=== PATIENT | male | born 1955 | race Caucasian/White ===

== ENCOUNTER 2019-09-18 17:03 | Emergency (ER) | payer OTHER, SELFPAY ==
[2019-09-18 17:32] VITALS: BP 161/102; PULSE 83; RESP 20; TEMP 36.9; O2SAT 95; BMI 23.6
[2019-09-18] MEDS: HYDROcodone-acetaminophen 5-325 mg Tablet 1 TAB PO (18:50)
[2019-09-18] MEDS: methylPREDNISolone (DEPO) 80 MG/ML INJ 1 mL IM (18:51)
[2019-09-18] MEDS: ketorolac 60 mg/2 mL INJ IM (18:51)
[2019-09-18 19:08] VITALS: BP 122/100; PULSE 71; O2SAT 95
--- NOTE | 2019-09-26 17:52 | ED_ITS ---
HPI - Back Pain/Injury General: Chief Complaint: Back Pain/Injury Stated Complaint: leg pain Time Seen by Provider: 09/18/19 17:44 History of Present Illness: HPI Narrative: Patient complains of ongoing chronic back pain and foot pain. MD elicited complaint: back pain Onset (ago): year(s) Timing: constant and progressively worsening Severity: moderate Associated symptoms: Deny abdominal pain, chills, fever(s), nausea or vomiting Review of Systems Const: Denies: fever, chills or body aches Eyes: Denies: change in vision or blurry vision ENMT: Denies: throat pain or nasal congestion Card: Denies: chest pain or shortness of breath on exertion Resp: Denies: shortness of breath, productive cough or non-productive cough GI: Denies: abdominal pain, nausea or vomiting : Denies: difficulty urinating Musc: Reports: other (Chronic back pain and bilateral foot pain); Denies: extremity pain Skin/Breast: Denies: rash Neuro: Denies: headache Psych: Denies: anxiety or depression Ken/Lymph: Denies: easy bruising PFSH ED PFSH: Statuses (acute, chronic, etc) shown below reflect problem list status as previously entered and may not be historically accurate Social History Smoking and tobacco status: current every day smoker Physical Exam Const: COMMON NORMALS: no apparent distress, average body habitus and oriented x3 HENMT: COMMON NORMALS: normocephalic HEAD & SCALP: normal to inspection and normocephalic FACE & SINUS: normal facial exam Eye: COMMON NORMALS: conjunctivae normal GENERAL EYE: normal appearance of both eyes CONJUNCTIVA: Yes conjunctivae normal Neck/C-Spine: COMMON NORMALS: no JVD Chest: COMMONS NORMALS: inspection of chest normal Resp: COMMON NORMALS: normal respiratory effort and clear to auscultation bilaterally AUSCULTATION: clear to auscultation bilaterally Cardio: COMMON NORMALS: no JVD, regular rate and regular rhythm RATE: regular rate RHYTHM: regular rhythm GI: COMMON NORMALS: normal to inspection, nondistended, normoactive bowel sounds Back/Pelvis: PELVIS: Yes other (Feet appear normal. Straight leg lift bilaterally at 30 to 45 degrees pain with left.) COCCYX: other (Feet appear normal. Straight leg lift bilaterally at 30 to 45 degrees pain with left.) Extremity: COMMON NORMALS: normal to inspection and full ROM Neuro: COMMON NORMALS: oriented x3 Course Vital Signs: Vital signs: Vital Signs Temperature 98.5 F 09/18/19 17:32 Pulse Rate 71 09/18/19 19:08 Respiratory Rate 20 H 09/18/19 17:32 Blood Pressure 122/100 09/18/19 19:08 Pulse Oximetry 95 09/18/19 19:08 Discharge Plan Discharge Patient Disposition: Home, Self-Care Clinical Impression: Lumbar radiculopathy, PAD (peripheral artery disease) Condition: Stable Prescriptions: New hydrocodone-acetaminophen 5-325 mg tablet 1 tab PO Q6H PRN (Reason: pain) Qty: 14 RF: 0 prednisone 10 mg tablet 10 mg PO DAILY Qty: 20 RF: 0 Discharge Orders: Discharge Order (Routine); Ordered 09/18/19 Ordered By: Solis Gong Referrals: Elisabeth Murray, DARLINE [Family Provider] - Patient Instructions: Peripheral Artery Disease (ED), Chronic Back Pain (ED) Activity Restrictions/Additional Instructions: Follow-up with medical provider as directed. Take medications as prescribed. Return to the ER are your medical provider if condition worsens. Read and understand discharge instructions. [facility] Patient needs vascular ultrasound down right lower extremity as an outpatient. Stop smoking. [facility] about [facility]. Discharge Date/Time: 09/18/19 19:16 Coding Level of Care Code ED Circuit Court Judge for Malu Galvin
== END 2019-09-18 19:16 | disposition home or self-care (01) ==
PROVIDERS: Emergency Provider Emergency Medicine; Family Provider Nurse Practitioner Family
DX: M54.16 Radiculopathy, lumbar region (principal); I73.9 Peripheral vascular disease, unspecified; F17.210 Nicotine dependence, cigarettes, uncomplicated
CPT/HCPCS: 96372; 99281; J1040; J1885

== ENCOUNTER 2019-11-04 09:53 | Emergency (ER) | payer MEDICARE, OTHER, SELFPAY ==
[2019-11-04 09:59] VITALS: BP 149/99; PULSE 83; RESP 18; TEMP 36.9; O2SAT 95; BMI 22.8
--- NOTE | 2019-11-04 10:57 | PC.NURSE ---
Patient reports that he has had real bad back pain. Patient states that he was suppose to see the pain clinic today.
--- NOTE | 2019-11-04 11:01 | ED_ITS ---
HPI - Back Pain/Injury General: Chief Complaint: Back Pain/Injury Stated Complaint: LOW BACK PAIN Time Seen by Provider: 11/04/19 10:58 Source: patient Mode of arrival: ambulatory Limitations: no limitations History of Present Illness: HPI Narrative: Patient presents with exacerbation of chronic back pain with radiation pain down the right leg. Patient states also numbness in his feet. Patient reports he has been having worsening symptoms over the last 14 months. Patient appears well. Patient appears in moderate pain. Patient was brought in by EMS due to his pain, patient was to be seen at pain clinic today at 10:00 but could not make the appointment due to this pain. Review of Systems General: Reports: 10 or more systems reviewed and unremarkable except in HPI and below Musc: Reports: back pain PFSH ED PFSH: Social History Smoking and tobacco status: current every day smoker Physical Exam Const: COMMON NORMALS: no apparent distress and oriented x3 GENERAL APPEARANCE: cooperative HENMT: COMMON NORMALS: normocephalic, external ears normal, EAC's normal, TM's normal bilaterally and external nose normal HEAD & SCALP: normal to inspection and normocephalic FACE & SINUS: normal facial exam NOSE: external nose normal GENERAL EAR: hearing not grossly impaired EXTERNAL EAR: Yes external ears normal EXTERNAL AUDITORY CANAL: EAC's normal TYMPANIC MEMBRANE: TM's normal bilaterally MOUTH: oral and palatal mucosa normal THROAT: posterior oropharynx normal Eye: COMMON NORMALS: PERRL and EOMs intact bilaterally PUPIL: Yes PERRL Neck/C-Spine: COMMON NORMALS: full ROM and no lymphadenopathy Lymph: LYMPHATIC: no lymphedema noted Chest: COMMONS NORMALS: inspection of chest normal and palpation of chest normal Resp: COMMON NORMALS: normal respiratory effort and clear to auscultation bilaterally AUSCULTATION: clear to auscultation bilaterally Cardio: COMMON NORMALS: regular rate and regular rhythm RATE: regular rate RHYTHM: regular rhythm GI: COMMON NORMALS: normal to inspection, nondistended, normoactive bowel sounds and non-tender : COMMON NORMALS: Yes no CVA tenderness BLADDER/KIDNEY EXAM: Yes no CVA tenderness Back/Pelvis: COMMON NORMALS: no CVA tenderness LUMBAR SPINE/LOWER BACK: Yes paraspinal muscle tenderness Lumbar paraspinal muscle tenderness: right Extremity: COMMON NORMALS: normal to inspection GENERAL: No edema Neuro: COMMON NORMALS: oriented x3, moves all extremities and no focal motor deficits Psych: COMMON NORMALS: mental status grossly normal and cooperative Skin: COMMON NORMALS: no rashes or lesions noted GENERAL SKIN EXAM: no rashes or lesions noted Course Vital Signs: Vital signs: Vital Signs Temperature 98.5 F 11/04/19 09:59 Pulse Rate 75 11/04/19 11:13 Respiratory Rate 18 11/04/19 11:13 Blood Pressure 144/93 11/04/19 11:13 Pulse Oximetry 96 11/04/19 11:13 MDM - Back Pain/Injury MDM Narrative: Medical decision making narrative: Patient comes in with ex acerbation of his low back pain. Patient was scheduled to see pain clinic today but could not tolerate the pain and able to go see them. Exam notes some tenderness in the paraspinous muscles on the right side of his low back. No point tenderness of the spine. Patient denies any bowel or bladder incontinence. Vital signs are normal. Differential diagnosis includes facet arthropathy, intervertebral disc disease, low back strain, lumbar radiculopathy. Patient was medicated with Toradol and orphenadrine. Patient was encouraged to stay as active as he could and to try to follow-up with pain clinic for further medication and treatment. Patient reports understanding and agreed to plan. Discharge Plan Discharge Patient Disposition: Home, Self-Care Clinical Impression: Right lumbar radiculitis Condition: Stable Prescriptions: No Action omeprazole 40 mg Capsule,Delayed Release(Dr/Ec) 40 mg PO DAILY RF: 0 simvastatin 40 mg/5 mL (8 mg/mL) Suspension 40 mg PO DAILY RF: 0 clopidogrel 75 mg Tablet 75 mg PO DAILY RF: 0 metoprolol tartrate 25 mg Tablet 25 mg PO DAILY RF: 0 Vitamin D3 25 mcg (1,000 unit) Capsule 1,000 unit PO DAILY RF: 0 Aspirin Low Dose 81 mg Tablet,Delayed Release (Dr/Ec) 81 mg PO DAILY RF: 0 Discharge Orders: Discharge Order (Routine); Ordered 11/04/19 Ordered By: Ariel Rogel Referrals: Elisabeth Murray DNP [Family Provider] - Discharge Diet: Usual diet Discharge Activity: Increase activity as tolerated Patient Instructions: Chronic Back Pain (ED) Activity Restrictions/Additional Instructions: Activity as tolerated Drink plenty of fluids Follow-up with pain clinic for further treatment Follow-up with primary care as needed Coding Level of Care Code ED Help Desk Manager for Chg Fwd Exam Comprehensive
[2019-11-04] MEDS: ketorolac 30 mg/mL INJ IM (11:06)
[2019-11-04] MEDS: orphenadrine 30 mg/mL Inj 2 mL 60 MG IM (11:07)
[2019-11-04 11:13] VITALS: BP 144/93; PULSE 75; RESP 18; O2SAT 96
== END 2019-11-04 11:13 | disposition home or self-care (01) ==
LOC: ER 11-17 06:46
PROVIDERS: Emergency Provider Nurse Practitioner Family; Family Provider Nurse Practitioner Family
DX: M54.16 Radiculopathy, lumbar region (principal); F17.200 Nicotine dependence, unspecified, uncomplicated
CPT/HCPCS: 96372; 99281; 99283; J1885; J2360

== ENCOUNTER 2019-12-17 06:31 | Outpatient (CLI) | payer OTHER, SELFPAY ==
--- NOTE | 2019-12-17 | USCV_ITS ---
Eber Fernandez Age: 64 Gender: M : 1955 Exam Date: 12/17/2019 08:38 Ordering Phys: Ariel Jane MD Technologist: Exam Location: [facility] [place] Indication: EVAL STENT Risk Factors: Previous Vascular Surgery: RIGHT LEFT BP: 139.0 / BP: 149.0/ 0 0 Waveform Velocity (cm/s) Velocity (cm/s) Waveform Monophasic 21.2 Iliac Prox 77.5 Triphasic Monophasic 14.2 Iliac Mid 64.2 Triphasic Monophasic Iliac Distal Triphasic 12.4 59.2 Monophasic 10.6 LIBRARY CIRCULATION DEPARTMENT CHIEF 44.7 Biphasic Monophasic 13.4 SFA Prox 47.2 Biphasic Monophasic 10.8 SFA Mid 42.2 Biphasic Monophasic 11.9 SFA Dist 39.7 Biphasic Monophasic 10.0 POP 33.1 Biphasic Monophasic 16.3 SHRIMP TRAWLER 38.9 Biphasic N/A DPA 22.3 Monophasic 0.6 ALEIDA 1.0 FINDINGS Moderate to heavy and venous plaques in the right iliac and femoral artery. Normal Doppler flow signals in the dorsalis pedis artery. Moderate scattered diffuse plaques in the left iliac and femoral arteries CONCLUSIONS 1. Abnormal resting ALEIDA and Doppler waveforms on the right side, suggestive of severe peripheral arterial disease, possibly multisegmental. Features of possible occlusion of the dorsalis pedis artery 2. Normal resting ALEIDA on the left side with moderate diffuse plaques in the iliac and femoral arteries. Compared to the study from 10/06/2013, there is worsening of the stenosis on the right side Dr Lyssa Roche MD [facility] (Electronically Signed) Final Date: 17 December 2019 17:17 S
== END 2019-12-17 06:32 | disposition home or self-care (01) ==
PROVIDERS: Family Provider Family Medicine; PCP Family Medicine; Visit Provider Family Medicine
DX: I73.9 Peripheral vascular disease, unspecified (principal)
CPT/HCPCS: 93925

== ENCOUNTER 2020-06-20 15:16 | Emergency (ER) | payer OTHER, MEDICARE, SELFPAY ==
[2020-06-20] VITALS (12 sets, daily range): BP systolic 93–117; BP diastolic 66–86; PULSE 83–88; RESP 18–28; TEMP 37.2–37.3; O2SAT 20–99; BMI 22.8
--- NOTE | 2020-06-20 17:24 | W.ED.COVID ---
HPI - COVID General: Chief Complaint: COVID symptoms Stated Complaint: covid symptoms Time Seen by Provider: 06/20/20 17:24 Triage information: Has fever, cough or shortness of breath. No known COVID + exposure last 14 days History of Present Illness: HPI Narrative: Patient comes in today for complaints of cough and congestion for the last 4 days. Patient states being out of his inhalers and nebulizer at home. Patient has a history of COPD. Patient has no known exposure to COVID. Patient appears in mild distress, with persistent cough. Prior covid testing: no COVID 19 common symptoms: positive cough and non-productive cough Pertinent comorbid conditions: heart disease and COPD/respiratory disease COVID Results: SARS-CoV-2 Antigen (Rapid) Negative (Negative) 06/20/20 17:58 06/20/20 Review of Systems General: Reports: 10 or more systems reviewed and unremarkable except in HPI and below Resp: Reports: non-productive cough [facility] ED PFSH: Medical History (Updated 06/20/20 @ 19:42 by DEVIN Quiroga) ASHD (arteriosclerotic heart disease) Chronic back pain COPD (chronic obstructive pulmonary disease) Dyslipidemia HTN (hypertension) Intervertebral disc disorder with radiculopathy of lumbosacral region Myocardial infarction Peripheral arterial disease Polycythemia Thoracic aortic aneurysm Tobacco abuse Tracheoesophageal fistula Surgical History History of coronary angioplasty History of lumbar discectomy [facility] [place], 2011 S/P insertion of iliac artery stent Social History Smoking and tobacco status: current every day smoker cigarettes Packs smoked per day: 1 Alcohol intake: never Lives independently: Yes Marital status: Single service: Yes branch: [employer] Current occupational status: retired Physical Exam Const: COMMON NORMALS: no acute distress and patient oriented x3 GENERAL APPEARANCE: cooperative HENMT: COMMON NORMALS: normocephalic, TM's normal bilaterally and Normal external nose present HEAD & SCALP: normal to inspection and normocephalic NOSE: Normal external nose present TYMPANIC MEMBRANE: TM's normal bilaterally MOUTH: Normal oral and palatal mucosa present THROAT: posterior oropharynx normal Eye: GENERAL EYE: appearance normal, both eyes and all related structures Neck/C-Spine: COMMON NORMALS: full ROM Chest: COMMONS NORMALS: normal inspection of the chest Resp: EFFORT & INSPECTION: Yes able to speak in complete sentences AUSCULTATION: diminished lung sounds Cardio: COMMON NORMALS: regular rate and regular rhythm RATE: regular rate RHYTHM: regular rhythm GI: COMMON NORMALS: non-tender Back/Pelvis: COMMON NORMALS: thoracic and lumbar spine normal to inspection Extremity: COMMON NORMALS: normal to inspection Neuro: COMMON NORMALS: patient oriented x3 and moves all extremities Psych: COMMON NORMALS: mental status grossly normal and cooperative Skin: COMMON NORMALS: no rashes or lesions noted GENERAL SKIN EXAM: no rashes or lesions noted Course ED course: 1899, patient reports improvement of symptoms. Patient resting well. No acute distress noted. Waiting on CTA of chest due to short of breath, elevated d dimer, and Vital Signs: Vital signs: Vital Signs Temperature 99.1 F 06/20/20 15:56 Pulse Rate 88 06/20/20 19:41 Respiratory Rate 20 H 06/20/20 19:41 Blood Pressure 116/78 06/20/20 19:41 Pulse Oximetry 93 06/20/20 19:41 MDM - COVID MDM Narrative Medical decision making narrative: Patient was sent here from the urgent care and [place] for concerns of possible COVID exposure. Patient was short of breath with cough and congestion. Patient decreased lung sounds on evaluation. Differential diagnosis includes pneumonia exacerbation of COPD or CHF. CTA noticed possible signs of pneumonia but no pulmonary embolism was noted. Blood count was 11,000. Basic metabolic panel was normal. D-dimer was elevated. COVID test was negative. Patient was treated for COPD exacerbation ER with good results after steroid and nebulizer treatments. Lab Data Result diagrams: 06/20/20 17:20 06/20/20 17:20 Labs: Lab Results 06/20/20 06/20/20 06/20/20 Range/Units 17:20 17:20 17:20 WBC 11.3 H (4.0-10.0) 10^3/uL RBC 5.39 H (4.1-5.3) 10^6/uL Hgb 16.1 (11.7-16.6) g/dL Hct 50.0 (42.0-52.0) % MCV 92.8 (80-94) fL MCH 29.9 (28.0-34.0) pg MCHC 32.2 (30.0-36.0) g/dL RDW 13.2 (12.1-15.1) % Plt Count 372 (130-400) 10^3/cmm MPV 9.2 (7.4-10.4) fL Neut % (Auto) 66.1 % Lymph % (Auto) 20.3 % [place] % (Auto) 10.2 % Eos % (Auto) 1.8 % Baso % (Auto) 1.0 % Neut # (Auto) 7.47 (1.8-7.7) 10^3/uL Lymph # (Auto) 2.3 (0.8-4.8) 10^3/uL [place] # (Auto) 1.2 H (0.2-0.9) 10^3/uL Eos # (Auto) 0.2 (0.0-0.8) 10^3/uL Baso # (Auto) 0.1 (0.0-0.1) 10^3/uL Nucleated RBC % (auto) 0 % Nucleated RBCs # 0.0 /100WBC D-Dimer 1.80 H (0-0.59) ug/mIFEU Sodium 137 (136-145) mmol/L Potassium 4.5 (3.5-5.1) mmol/L Chloride 98 (98-107) mmol/L Carbon Dioxide 26 (22-29) mmol/L Anion Gap 17.5 (5-19) BUN 17 (8-23) mg/dL Creatinine 0.8 (0.7-1.2) mg/dL GFR Calculation 96.7 (90-130) mL/min Glucose 86 (65-115) mg/dL Calculated Osmolality 285 (285-295) mOsm/kg Calcium 9.5 (8.5-10.5) mg/dL Ferritin 297 (30-400) ng/mL Total Bilirubin 0.5 (0.15-1.2) mg/dL AST 29 (0-40) U/L ALT 22 (0-41) U/L Alkaline Phosphatase 86 (40-130) IU/L Total Protein 7.9 (6.6-8.7) g/dL Albumin 3.7 (3.5-5.2) g/dL Globulin 4.2 (1.3-4.6) g/dL SARS-CoV-2 Ag (Rapid) (Negative) 06/20/20 Range/Units 17:58 WBC (4.0-10.0) 10^3/uL RBC (4.1-5.3) 10^6/uL Hgb (11.7-16.6) g/dL Hct (42.0-52.0) % MCV (80-94) fL MCH (28.0-34.0) pg MCHC (30.0-36.0) g/dL RDW (12.1-15.1) % Plt Count (130-400) 10^3/cmm MPV (7.4-10.4) fL Neut % (Auto) % Lymph % (Auto) % [place] % (Auto) % Eos % (Auto) % Baso % (Auto) % Neut # (Auto) (1.8-7.7) 10^3/uL Lymph # (Auto) (0.8-4.8) 10^3/uL [place] # (Auto) (0.2-0.9) 10^3/uL Eos # (Auto) (0.0-0.8) 10^3/uL Baso # (Auto) (0.0-0.1) 10^3/uL Nucleated RBC % (auto) % Nucleated RBCs # /100WBC D-Dimer (0-0.59) ug/mIFEU Sodium (136-145) mmol/L Potassium (3.5-5.1) mmol/L Chloride (98-107) mmol/L Carbon Dioxide (22-29) mmol/L Anion Gap (5-19) BUN (8-23) mg/dL Creatinine (0.7-1.2) mg/dL GFR Calculation (90-130) mL/min Glucose (65-115) mg/dL Calculated Osmolality (285-295) mOsm/kg Calcium (8.5-10.5) mg/dL Ferritin (30-400) ng/mL Total Bilirubin (0.15-1.2) mg/dL AST (0-40) U/L ALT (0-41) U/L Alkaline Phosphatase (40-130) IU/L Total Protein (6.6-8.7) g/dL Albumin (3.5-5.2) g/dL Globulin (1.3-4.6) g/dL SARS-CoV-2 Ag (Rapid) Negative (Negative) COVID Results: SARS-CoV-2 Antigen (Rapid) Negative (Negative) 06/20/20 17:58 06/20/20 EKG Data EKG 1: Attestation: I personally reviewed and interpreted this EKG as follows: (normal sinus rhythm, 84 bpm regular, no ectopy or ST elevation. wjw) Discharge Plan Discharge Patient Disposition: Home Clinical Impression: Close exposure to severe acute respiratory syndrome coronavirus 2 (SARS-CoV-2), Acute exacerbation of chronic obstructive pulmonary disease Condition: Stable Prescriptions: New prednisone 20 mg tablet 20 mg PO BID 3 Days Qty: 6 RF: 0 doxycycline hyclate 100 mg capsule 100 mg PO BID 7 Days Qty: 14 RF: 0 No Action simvastatin 40 mg tablet 40 mg PO DAILY RF: 0 albuterol sulfate 90 mcg/actuation HFA aerosol inhaler 2 puff INHALATION Q6H PRNRF: 0 omeprazole 40 mg Capsule,Delayed Release(Dr/Ec) 40 mg PO DAILY RF: 0 clopidogrel 75 mg Tablet 75 mg PO DAILY RF: 0 metoprolol tartrate 25 mg Tablet 25 mg PO DAILY RF: 0 Vitamin D3 25 mcg (1,000 unit) Capsule 1,000 unit PO DAILY RF: 0 Aspirin Low Dose 81 mg Tablet,Delayed Release (Dr/Ec) 81 mg PO DAILY RF: 0 Referrals: Ariel Jane [Primary Care Provider] - Discharge Diet: Usual diet Discharge Activity: Increase activity as tolerated Patient Instructions: Chronic Obstructive Pulmonary Disease (ED) Activity Restrictions/Additional Instructions: Home and rest. Drink plenty of fluids. Continue use of medications as directed. Follow-up with primary care for further treatment, and review of CT scan results. Return to the emergency department for worsening symptoms or new concerns. Coding Level of Care Code ED Senior Marketing Analyst for Malu Fwsara Exam Comprehensive
[2020-06-20 17:42] LABS: Basophils # 0.1 10^3/uL (0.0-0.1); Eosinophils # 0.2 10^3/uL (0.0-0.8); Eosinophils % 1.8 %; Hemoglobin 16.1 g/dL (11.7-16.6); Lymphocytes # 2.3 10^3/uL (0.8-4.8); Lymphocytes % 20.3 %; Mean Corpuscular HGB Conc 32.2 g/dL (30.0-36.0); Mean Corpuscular Hemoglobin 29.9 pg (28.0-34.0); Mean Corpuscular Volume 92.8 fL (80-94); Mean Platelet Volume 9.2 fL (7.4-10.4); Monocytes # 1.2 10^3/uL (0.2-0.9); Monocytes % 10.2 %; Neutrophils # 7.47 10^3/uL (1.8-7.7); Neutrophils % 66.1 %; Nucleated Red Blood Cells % 0 %; Platelet Count 372 10^3/cmm (130-400); Red Blood Count 5.39 10^6/uL (4.1-5.3); Red Cell Distribution Width 13.2 % (12.1-15.1); White Blood Count 11.3 10^3/uL (4.0-10.0)
[2020-06-20] MEDS: albuterol 8 gm MDI 4 PUFF INHALATION (18:05)
--- NOTE | 2020-06-20 18:11 | ECG_ITS ---
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 Measurements Intervals [place] Rate: 84 P: 66 MN: 158 QRS: -8 QRSD: 79 T: 45 QT: 368 QTc: 437 Interpretive Statements SINUS RHYTHM Compared to ECG 10/03/2018 17:05:36 No significant changes Electronically Signed On 06-21-2020 20:01:35 CDT by Lucy Whelan M.D. [email or web address]
[2020-06-20 18:14] LABS: Alanine Aminotransferase 22 U/L (0-41); Albumin Level 3.7 g/dL (3.5-5.2); Alkaline Phosphatase 86 IU/L (40-130); Anion Gap 17.5 (5-19); Aspartate Amino Transferase 29 U/L (0-40); Blood Urea Nitrogen 17 mg/dL (8-23); Calcium 9.5 mg/dL (8.5-10.5); Carbon Dioxide 26 mmol/L (22-29); Chloride 98 mmol/L (98-107); Ferritin 297 ng/mL (30-400); Globulin 4.2 g/dL (1.3-4.6); Glomerular Filtration Rate 96.7 mL/min (90-130); Glucose 86 mg/dL (65-115); Osmolality Calculated 285 mOsm/kg (285-295); Potassium 4.5 mmol/L (3.5-5.1); Sodium 137 mmol/L (136-145); Total Bilirubin 0.5 mg/dL (0.15-1.2); Total Protein 7.9 g/dL (6.6-8.7)
--- NOTE | 2020-06-20 18:14 | CTR_ITS ---
PROCEDURE INFORMATION: Exam: CT Angiography Chest With Contrast Exam date and time: 06/20/2020 7:00 PM Age: 64 years old Clinical indication: Cough and shortness of breath; Patient HX: Cough, SOB, and elevated d-dimer; Additional info: Elevated d-dimer, short of breath TECHNIQUE: Imaging protocol: Computed tomographic angiography of the chest with intravenous contrast. 3D rendering (Not supervised by radiologist): MIP and/or 3D reconstructed images were created by the technologist. Radiation optimization: All CT scans at this facility use at least one of these dose optimization techniques: automated exposure control; mA and/or kV adjustment per patient size (includes targeted exams where dose is matched to clinical indication); or iterative reconstruction. Contrast material: OMNI 350; Contrast volume: 71 ml; Contrast route: INTRAVENOUS (IV); COMPARISON: CTA Chest-Pulmonary Emb [id number] 10/03/2018 6:28 PM RADIATION DOSE METRICS: Total DLP (mGy-cm): 529.48 FINDINGS: Pulmonary arteries: Normal. No pulmonary emboli. Aorta: Unremarkable. No aortic aneurysm. No aortic dissection. Lungs: Patchy left lung ground-glass airspace opacities largely in the lower lobe with somewhat of a tree-in-bud type particular nodular density with some similar findings in the right lung may reflect an atypical mycobacterial infection. Centrilobular emphysematous changes. Pleural space: Lingular 4.8 cm mass contacting the pericardium and lateral pleural. Heart: Unremarkable. No cardiomegaly. No pericardial effusion. Lymph nodes: Unremarkable. No enlarged lymph nodes. Stomach and bowel: Stent seen in stomach. Bones/joints: Unremarkable. No acute fracture. Soft tissues: Unremarkable. CT/CT angio chest PE protcl [id number] IMPRESSION: 1. Negative for pulmonary embolus 2. Lingular 4.8 cm mass contacting the pericardium and lateral pleural. Highly suspicious nodule(s). Consider PET/CT, or tissue sampling.(Reference: Ellis) 3. Patchy left lung ground-glass airspace opacities largely in the lower lobe with somewhat of a tree-in-bud type particular nodular density with some similar findings in the right lung may reflect an atypical mycobacterial infection. 4. Stent seen in stomach. 5. Centrilobular emphysematous changes. References: Ellis Dowell et al. Guidelines for Management of Incidental Pulmonary Nodules Detected on CT Images: From the Fleischner Society 2017. Radiology. 2017;284(1):228-243. Radiation Dose CTDIVOL = (mGy): DLP = 529.48 (mGy-cm)
[2020-06-20 18:22] LABS: SARS Covid-2 Antigen Negative (Negative)
[2020-06-20] MEDS: sodium chloride 0.9% 500 ML 999 ML IV (18:51)
[2020-06-20] MEDS: iohexol 350 mg/mL 100 mL Btl IV (19:15)
[2020-06-20] MEDS: ipratropium-albuterol 3 mL Neb INHALATION (19:25)
--- NOTE | 2020-06-20 21:00 | PC.NURSE ---
Pt not given PO meds here before discharge. Pt sent with prescription home. Provider notified.
== END 2020-06-20 21:03 | disposition home or self-care (01) ==
PROVIDERS: Nurse Practitioner Family; Emergency Provider Nurse Practitioner Family; PCP Family Medicine
DX: Z20.828 Contact with and (suspected) exposure to other viral communicable diseases (principal); J44.1 Chronic obstructive pulmonary disease with (acute) exacerbation; Z79.02 Long term (current) use of antithrombotics/antiplatelets; Z79.82 Long term (current) use of aspirin; E78.5 Hyperlipidemia, unspecified; I10 Essential (primary) hypertension; I25.2 Old myocardial infarction; Z98.61 Coronary angioplasty status; F17.210 Nicotine dependence, cigarettes, uncomplicated
CPT/HCPCS: 12345; 36415; 71275; 80053; 82728; 85025; 85378; 87426; 93005; 94640; 96374; 96375; 99284; J2930; J3535; J7040; Q9967

== ENCOUNTER → 2020-07-19 15:58 | Outpatient (BNVA) | payer OTHER, SELFPAY | PROVIDERS: PCP Family Medicine; Visit Provider Emergency Medicine | DX: Z11.59 Encounter for screening for other viral diseases (principal); R06.02 Shortness of breath | CPT/HCPCS: 87635 ==

== ENCOUNTER 2020-07-22 08:06 | Outpatient (CLI) | payer OTHER, MEDICARE, SELFPAY ==
[2020-07-22 08:52] VITALS: BP 106/72
--- NOTE | 2020-07-22 14:13 | PFTS_ITS ---
Date of Study:07/22/20 Date of Dictation: MECHANICS: Forced vital capacity (FVC) is normal. Forced expiratory volume in one second (FEV1) is normal. FEV1/FVC is reduced. FLOW VOLUME LOOP: Reduced flow at all lung volumes with scooping. LUNG VOLUMES: Total lung capacity (TLC) is normal. Residual volume (RV) is increased. DIFFUSING CAPACITY FOR CARBON MONOXIDE: Mildly reduced. INTERPRETATION: The pulmonary function tests are consistent with mild obstruction. There is no significant postbronchodilator response. Lung volumes are consistent with air trapping. Gas exchange (DLCO) is mildly reduced. MTDD
== END 2020-07-22 08:07 | disposition home or self-care (01) ==
PROVIDERS: PCP Family Medicine; Visit Provider Internal Medicine Pulmonary Disease
DX: Z98.61 Coronary angioplasty status (principal); Z95.828 Presence of other vascular implants and grafts; I71.2 Thoracic aortic aneurysm, without rupture; Z72.0 Tobacco use; J44.9 Chronic obstructive pulmonary disease, unspecified; I73.9 Peripheral vascular disease, unspecified
CPT/HCPCS: 94060; 94618; 94726; 94729; J7611

== ENCOUNTER 2020-07-23 06:35 | Day surgery (SDC) | payer OTHER, SELFPAY ==
[2020-07-22 17:17] VITALS: BMI 22.1
[2020-07-23] VITALS (9 sets, daily range): BP systolic 86–102; BP diastolic 55–72; PULSE 68–83; RESP 16–24; TEMP 36.2–36.7; O2SAT 95–99
--- NOTE | 2020-07-23 | CT_ITS ---
Guided Bronchoscopy Planning CT images; total exam DLP: 594.16 mGy-cm MTDD
--- NOTE | 2020-07-23 06:51 | W.PM.OPSFHP ---
Same Day Surgery H&P Indication for Procedure/HPI DATE OF PROCEDURE: July 23, 2020 CHIEF COMPLAINT/INDICATIONFOR SURGICAL PROCEDURE: This is a 64-year-old gentleman who was referred to me by Dr. Orozco for evaluation and management of suspected lung cancer. The patient was found to have a left lingular mass that was positive on PET scan. PREOP DIAGNOSIS: Lung cancer PLANNED PROCEDRUE: Bronchoscopy inspection of the airway, possible endobronchial biopsies, bronchoalveolar lavage, navigational bronchoscopy guided transbronchial needle aspiration of lingular mass, transbronchial biopsies, Cytobrush, endobronchial sound guided transbronchial needle aspiration of lymph nodes. Operation Date: 07/23/20 08:10 Proposed Procedures p Bronchoscopy [id number] R91.8(Not Applicable) - Dany Dias MD s Ebus(Not Applicable) - Dany Dias MD Medications/Allergies* Home Medications Medication Instructions Recorded Confirmed Type aspirin [Aspirin Low Dose] 81 mg PO DAILY 11/04/19 07/22/20 History cholecalciferol (vitamin D3) 1,000 unit PO DAILY 11/04/19 07/22/20 History [Vitamin D3] metoprolol tartrate 25 mg PO DAILY 11/04/19 07/22/20 History omeprazole 40 mg PO DAILY 11/04/19 07/22/20 History albuterol sulfate 90 mcg/actuation 2 puff INHALATION Q6H PRN 12/24/19 07/22/20 History aerosol inhaler simvastatin 40 mg tablet 40 mg PO DAILY 12/24/19 07/22/20 History trazodone 100 mg tablet 50 mg PO DAILY tab 07/19/20 07/22/20 History clopidogrel [Plavix] 75 mg PO DAILY 07/22/20 07/22/20 History Allergies/Adverse Reactions Allergy/AdvReac Type Severity Reaction Status Date / Time No Known Allergies Allergy Verified 07/19/20 13:52 Pertinent History/Comorbid Conditions* Medical History (Updated 07/19/20 @ 17:31 by Hussain Orozco MD) ASHD (arteriosclerotic heart disease) Chronic back pain COPD (chronic obstructive pulmonary disease) Dyslipidemia HTN (hypertension) Intervertebral disc disorder with radiculopathy of lumbosacral region Myocardial infarction Peripheral arterial disease Polycythemia Thoracic aortic aneurysm Tobacco abuse Tracheoesophageal fistula Surgical History (Updated 12/24/19 @ 09:39 by Aaron Montague MD) History of coronary angioplasty History of lumbar discectomy [facility], 2012 S/P insertion of iliac artery stent Social History Smoking and tobacco status: current every day smoker cigarettes Packs smoked per day: 1 [ Other cigarette details: [id number] ] Quit status (tobacco): considering quitting Second hand smoke exposure: No Smoking risk assessment/counseling performed?: Yes Alcohol intake: never Lives independently: Yes Household members: none Marital status: Single service: Yes branch: [employer] Current occupational status: retired History of recent travel: No Current gender identity: Male Pertinent Exam Findings alert, oriented x 3, clear to auscultation bilaterally and regular rate & rhythm Recommendations Surgery/Procedure today Coding Level of Care Code Acute 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
[2020-07-23] MEDS: sodium chloride 0.9% 1,000 ML 30 ML IV (07:02)
--- NOTE | 2020-07-23 09:54 | ANES.PREANE2 ---
Pre-Anesthetic Assessment Pre-Anesthetic Assessment: Height/Weight: Height 1.73 m Weight 66.224 kg Temp Pulse Resp BP Pulse Ox 97.8 F 80 18 99/60 95 07/23/20 06:58 07/23/20 06:58 07/23/20 06:58 07/23/20 06:58 07/23/20 06:58 Preop Diagnosis: Lung cancer Proposed Procedure: Operation Date: 07/23/20 08:30 Proposed Procedures p Bronchoscopy [id number] R91.8(Not Applicable) - MD maria ines Swanson Ebus(Not Applicable) - MD maria ines Swanson Veran(Not Applicable) - Dany Dias MD Familial anesthetic complications: none Was Beta Sasha taken within 24 hours: Yes Last intake: Intake Last Liquid Date 07/22/20 Last Liquid Time 21:00 Last Solid Date 07/22/20 Last Solid Time 21:00 Last Intake: 21:00 Social: Packs per day: 1/2 ppd Pack years: 52 Exam: Pre-Anes Outpt Exam: alert, oriented x 3, clear to auscultation bilaterally (dim eliel) and regular rate & rhythm Airway: Submandibular: WNL Cervical ROM: WNL MP: 1 Dentition: Full Pulmonary: Pulmonary: COPD, TAYLOR and SOB CV/HEM: CV/HEM: HTN and TX Comments: PTCA 4 years ago. No CP since : : None reported Hepatic: Hepatic: None reported GI: GI: GERD Comments: esophageal fistula 2016 with esophageal stent Metabolic: Metabolic: None reported Musc/skel: Musc/skel: Lower Back Pain and OA/DJD Neuropsych: Neuropsych: None reported Anesthetic Plan: ASA status: 3 Anesthesia: Anesthesia Evaluation and General Risk of > 500 ml blood loss (7ml/kg in children): No Meds/Allergies Current Medications: Current Medications Generic Name Dose Route Start Last Admin Trade Name Freq PRN Reason Stop Dose Admin Sodium Chloride 1,000 mls @ 30 ml s/hr 07/23/20 07:00 07/23/20 07:02 Sodium Chloride 0.9% IV 07/24/20 06:59 30 mls/hr .Q24H LAVON Administration PFSH Anesthesia PFSH: Medical History ASHD (arteriosclerotic heart disease) Chronic back pain COPD (chronic obstructive pulmonary disease) Dyslipidemia HTN (hypertension) Intervertebral disc disorder with radiculopathy of lumbosacral region Myocardial infarction Peripheral arterial disease Polycythemia Thoracic aortic aneurysm Tobacco abuse Tracheoesophageal fistula Surgical History History of coronary angioplasty History of lumbar discectomy [facility], 2012 S/P insertion of iliac artery stent Social History Smoking and tobacco status: current every day smoker cigarettes Packs smoked per day: 1 [ Other cigarette details: [id number] ] Quit status (tobacco): considering quitting Second hand smoke exposure: No Smoking risk assessment/counseling performed?: Yes Alcohol intake: never Lives independently: Yes Household members: none Marital status: Single service: Yes branch: [employer] Current occupational status: retired History of recent travel: No Current gender identity: Male Data Anesthesia Cardiac Studies: No Data to Display
[2020-07-23] MEDS: lidocaine 1% INJ 20 mL (10:25)
--- NOTE | 2020-07-23 11:07 | PTH.EBUS ---
Endobronchial Ultrasound Specimen(s): Lung, left, lingula. Gross: The specimen is received fresh in a slide, camilo-white necrotic tissue measuring 0.2 cm in greatest dimension. 2 Diff-Quik cytology slides are prepared for rapid onsite evaluation. Preliminary Impression: Lung, left, lingula, fine-needle aspiration biopsy: ?Reactive bronchial epithelial cells with acute and chronic inflammation in a background of necrosis. ?No overt malignancy identified. ?Tissue was procured for permanent sections. - Specimen Information Pathologist: Terry Hopkins Date: 07/23/20 Specimen reported at what time: 11:05 - Clinician Specimen collection time: 11:00 Clinician reported to: Dany Dias
--- NOTE | 2020-07-23 11:57 | P.OP_ITS ---
Operative Report Date of procedure: July 23, 2020 Pre-op Diagnosis: Lung cancer Post-op diagnosis: same Brief History: This is a 64-year-old gentleman with lingular lung mass coming in for evaluation for suspected lung cancer. Procedure: Name of the procedure: Bronchoscopy with inspection of the airway, bronchoalveolar lavage, navigational bronchoscopy guided transbronchial biopsies of the lingular mass, fine-needle aspiration, endobronchial ultrasound-guided transbronchial needle aspiration of lymph nodes and control of bleeding. Indication: Suspected lung cancer Anesthesia: General anesthesia. Local anesthesia: The adeola in the right and left mainstem bronchi were anesthetized with 1% lidocaine, 3 mL. Description of the procedure: The procedure was explained to the patient and the consent was obtained. The patient was brought to the OR. The patient underwent endotracheal intubation for general anesthesia. Following induction of general anesthesia, the bronchoscope was advanced through the ET tube. The lower trachea appeared to be normal. The adeola was sharp. The adeola, the right and left mainstem bronchi are anesthetized with 1% lidocaine. In a systematic manner bilateral bronchial tree was then examined. The bronchoscope was advanced into the left mainstem bronchus. There was no erythema,mucus or areas of cobblestoning. The left upper lobe, lingula and left lower lobe bronchi were examined up to the third subsegmental level and no abnormalities were identified. There is no endobronchial lesion, active bleeding or mucous plug. The bronchoscope was then introduced into the right mainstem bronchus. The right upper lobe, right middle lobe and right lower lobe bronchi were examined up to the third subsegmental level and no abnormalities were identified. There was airway erythema throughout the lung. Using navigational bronchoscopy technique multiple transbronchial biopsies and fine-needle aspirations were obtained from the lingular lung mass. Bronchoalveolar lavage was performed from the medial segment of the right middle lobe. 60 mL of saline was instilled, fluid return was 20 mL. The fluid was bloody. The endobronchial ultrasound was introduced through the ET tube. Lymphadenopathy involving the mediastinal hilar lymph nodes are noted. Fine- needle aspiration was performed from the 4L and 10 L lymph node stations Samples: 1. The transbronchial biopsies are sent for histopathology. 1 sample was sent for Gram stain and culture, fungal stain and culture, AFB stain and culture. 2. The fine-needle aspiration was sent for histopathology. 3. The bronchoalveolar lavage was sent for Gram stain culture, fungal stain culture, AFB stain and culture and cytology. 4. The transbronchial needle aspiration of the aforementioned lymph node groups were sent for cytology. Complications: There was no immediate complications.
--- NOTE | 2020-07-23 12:09 | SUR.PHASEI ---
1208 PATIENT TO PACU FROM OR. DRY COUGH NOTED. PATIENT DENIES PAIN. SPO2 98% ON SIMPLE MASK AT 8L.
--- NOTE | 2020-07-23 12:21 | SUR.PHASEI ---
1218 PATIENT TO OPS. SLIGHT PAIN IN THROAT, DRY COUGH NOTED.
--- NOTE | 2020-07-23 13:03 | PC.NURSE ---
PT RECEIVING BREATHING TREATMENT FOR CONT. COUGH
[2020-07-23] MEDS: lidocaine 4% PF 5 mL INJ INHALATION (13:07)
--- NOTE | 2020-07-23 14:43 | ANE.PACU2 ---
Inpatient post-anesthesia follow up: Airway intact: Yes Vital signs: Temperature 97.2 F Pulse Rate 83 Respiratory Rate 22 Blood Pressure 86/55 Pulse Oximetry 98 Oxygen Delivery Me thod Room Air Oxygen Flow Rate 8 Fraction of Inspir ed Oxygen Hydration adequate: Yes Nausea and vomiting: No Pain level: 2 Mental status: Baseline
== END 2020-07-23 13:23 | disposition home or self-care (01) ==
PROVIDERS: PCP Family Medicine; Visit Provider Internal Medicine Critical Care Medicine
PROC: 0BJ08ZZ Inspection of Tracheobronchial Tree, Via Natural or Artificial Opening Endoscopic (ICD-10-PCS; CPT 31622; principal; 2020-07-23 08:30)
PROC: BB4BZZZ Ultrasonography of Pleura (ICD-10-PCS; 2020-07-23 08:30)
PROC: 0BJ08ZZ Inspection of Tracheobronchial Tree, Via Natural or Artificial Opening Endoscopic (ICD-10-PCS; CPT 31622; 2020-07-23 08:30)
DX: R91.8 Other nonspecific abnormal finding of lung field (principal); Z79.82 Long term (current) use of aspirin; Z79.02 Long term (current) use of antithrombotics/antiplatelets; I25.10 Atherosclerotic heart disease of native coronary artery without angina pectoris; J44.9 Chronic obstructive pulmonary disease, unspecified; I10 Essential (primary) hypertension; E78.5 Hyperlipidemia, unspecified; I25.2 Old myocardial infarction; I73.9 Peripheral vascular disease, unspecified; D75.1 Secondary polycythemia; I71.2 Thoracic aortic aneurysm, without rupture; F17.210 Nicotine dependence, cigarettes, uncomplicated; Z98.61 Coronary angioplasty status; Z95.828 Presence of other vascular implants and grafts; K21.9 Gastro-esophageal reflux disease without esophagitis
CPT/HCPCS: 12345; 31625; 31627; 77011; 80500; 87015; 87070; 87077; 87081; 87102; 87116; 87176; 87186; 87205; 87206; 87801; 88305; 94640; J2405; J2704; J2710; J3010; J3490; J7030; J7611

== ENCOUNTER 2020-08-09 12:50 | Emergency (ER) | payer OTHER, SELFPAY ==
[2020-08-09 13:01] VITALS: BP 110/76; PULSE 82; RESP 22; TEMP 36.8; O2SAT 97
--- NOTE | 2020-08-09 13:44 | XRR_ITS ---
PROCEDURE INFORMATION: Exam: XR Chest, 1 View Exam date and time: 08/09/2020 2:58 PM Age: 64 years old Clinical indication: Cough and dyspnea; Prior surgery; Surgery type: Lung biopsy 2 weeks ago; Additional info: Dyspnea/cough TECHNIQUE: Imaging protocol: XR of the chest Views: 1 view. COMPARISON: CT angio chest PE protcl [id number] 06/20/2020 7:12 PM FINDINGS: Lungs: Left lower lung opacity increased since the chest CT of 06/20/2020. Right lung is well aerated. Pleural space: No pleural effusion. No pneumothorax. Heart/Mediastinum: Unremarkable. No cardiomegaly. Vasculature: Left upper abdominal stent partially seen. Bones/joints: No acute findings. XR/XR chest 1V portable [id number] IMPRESSION: Increasing left lower lung opacity consistent with atelectasis, pneumonia, or pulmonary hemorrhage adjacent to the left lung mass versus interval increase in the size of the mass.
--- NOTE | 2020-08-09 16:12 | ECG_ITS ---
[facility] Test Date: 2020-08-09 Pat Name: Eber Fernandez Department: Room: Gender: Male Purse Seining Hand: ALANA : 1955 Requested By: Cheryl Weiss Order Number: [id number] Reading MD: GUERLINE HOUSTON Measurements Intervals [place] Rate: 84 P: 58 OK: 138 QRS: -24 QRSD: 86 T: 15 QT: 350 QTc: 415 Interpretive Statements SINUS RHYTHM BORDERLINE LEFT AXIS DEVIATION [QRS AXIS < -20] POSSIBLE RIGHT VENTRICULAR CONDUCTION DELAY [RSR (QR) IN V1/V2] Compared to ECG 06/20/2020 18:53:52 No significant changes Electronically Signed On 08-09-2020 17:29:05 OILER BANDER by GUERLINE HOUSTON [id number]
--- NOTE | 2020-08-09 16:30 | ECG_ITS ---
[facility] Test Date: 2020-08-09 Pat Name: Eber Fernandez Department: Room: Gender: Male Radiotelegraph Operator: : 1955 Requested By: Cheryl Weiss Order Number: [id number] Reading MD: GUERLINE HOUSTON Measurements Intervals [place] Rate: 78 P: 60 MO: 149 QRS: 9 QRSD: 79 T: 39 QT: 358 QTc: 410 Interpretive Statements SINUS RHYTHM POSSIBLE RIGHT VENTRICULAR CONDUCTION DELAY [RSR (QR) IN V1/V2] Compared to ECG 08/09/2020 13:06:37 No significant changes Electronically Signed On 08-09-2020 17:23:55 ORTHOPEDIC MECHANIC by GUERLINE HOUSTON [id number]
--- NOTE | 2020-08-09 16:36 | ED_ITS ---
HPI - SOB/Dyspnea General: Chief Complaint: Shortness of Breath/Dyspnea Stated Complaint: PNEUMONIA/SYMPTOMS WORSENING Time Seen by Provider: 08/09/20 16:12 History of Present Illness: HPI Narrative: This patient is a 64-year-old male who presents with left-sided chest pain and shortness of breath. He has been having similar symptoms for about a month and has been seen by the protein chemist here. He had a CT which showed a necrotic area in the left lower lobe and they were concerned this was cancer. He had a biopsy done on 23 July. He has not heard the results of that yet. In the past he had a problem with aspiration pneumonia from what sounds like either severe reflux or possibly a tracheoesophageal fistula. This was about 4 years ago when he was treated with an esophageal stent at that time. That stent migrated into his stomach and had to be removed and replaced about a year later. On the CT that he had done recently here now his stent is again in his stomach. On the CT there was no evidence of a tracheoesophageal fistula. He also has multiple other chronic medical problems including aortic aneurysm and is thoracic aorta, coronary artery disease with multiple coronary stents, arterial stents in his peripheral arteries and COPD. His other complaint besides pain and shortness of breath is weight loss. He said he is lost about 25 pounds over the last couple of weeks. He said he just cannot eat. He has been doing Ensure and trying to get some nutrition but continues to lose weight. He has had a little bit of constipation but denies diarrhea. He has had some night sweats and chills but no documented fever. MD elicited complaint: shortness of breath, cough and chest pain Pertinent past history: COPD, pneumonia and aspiration Onset (ago): month(s) Associated symptoms: Reports chest pain and diaphoresis; Deny abdominal pain, fever(s), nausea or vomiting Review of Systems General: Reports: 10 or more systems reviewed and unremarkable except in HPI and below Const: Reports: chills, change in appetite, change in weight, fatigue, malaise and diaphoresis; Denies: fever(s) Eyes: Denies: change in vision ENMT: Denies: odynophagia Card: Reports: chest pain; Denies: swelling of feet/ankles Resp: Reports: dyspnea and productive cough; Denies: non-productive cough GI: Denies: abdominal pain, nausea or vomiting : Denies: flank pain Musc: Denies: neck pain or back pain Skin/Breast: Denies: rash Neuro: Denies: headache(s), numbness in extremities or weakness in extremities Ken/Lymph: Denies: easy bruising or easy bleeding [facility] ED PFSH: Medical History (Updated 08/09/20 @ 19:45 by Cheryl Walls MD) ASHD (arteriosclerotic heart disease) Chronic back pain COPD (chronic obstructive pulmonary disease) Dyslipidemia HTN (hypertension) Intervertebral disc disorder with radiculopathy of lumbosacral region Myocardial infarction Peripheral arterial disease Polycythemia Thoracic aortic aneurysm Tobacco abuse Tracheoesophageal fistula Surgical History History of coronary angioplasty History of lumbar discectomy [facility], 2012 S/P insertion of iliac artery stent Social History Smoking and tobacco status: current every day smoker cigarettes Packs smoked per day: 1 [ Other cigarette details: [id number] ] Quit status (tobacco): considering quitting Second hand smoke exposure: No Smoking risk assessment/counseling performed?: Yes Alcohol intake: never Lives independently: Yes Household members: none Marital status: Single service: Yes branch: [employer] Current occupational status: retired History of recent travel: No Current gender identity: Male Physical Exam Const: COMMON NORMALS: no acute distress, patient oriented x3, no limitations and alert GENERAL APPEARANCE: cooperative and comfortable HENMT: HEAD & SCALP: normal to inspection FACE & SINUS: normal facial exam Eye: GENERAL EYE: appearance normal, both eyes and all related structures Neck/C-Spine: COMMON NORMALS: supple, no meningeal signs and no JVD Chest: COMMONS NORMALS: normal inspection of the chest Resp: COMMON NORMALS: normal respiratory effort and No use of accessory muscles AUSCULTATION: diminished lung sounds on the left in the lower lung genao Cardio: COMMON NORMALS: no JVD, regular rate, regular rhythm and No murmurs present (Cardio) RATE: regular rate RHYTHM: regular rhythm GI: COMMON NORMALS: Normal to inspection, nondistended, normoactive bowel sounds present, Soft to palpation and non-tender INSPECTION: Yes normal to inspection AUSCULTATION: Yes normoactive bowel sounds PALPATION: Yes Soft to palpation Back/Pelvis: COMMON NORMALS: thoracic and lumbar spine normal to inspection Extremity: COMMON NORMALS: normal to inspection Neuro: COMMON NORMALS: patient oriented x3, moves all extremities, no focal motor deficits and no sensory deficits noted SENSORIUM/ORIENTATION: Yes alert MENINGEAL SIGNS: Yes no meningeal signs Psych: COMMON NORMALS: mental status grossly normal, cooperative and normal affect Skin: COMMON NORMALS: no rashes or lesions noted and turgor normal GENERAL SKIN EXAM: no rashes or lesions noted and turgor normal Course ED course: I reviewed the patient's biopsy results. There is no sign of malignancy but there were bacteria identified. These were pansensitive strep strains. I talked to Dr. Torre who knew the patient well and recommended Augmentin for coverage. If he is ill looking more septic looking then he should be admitted but at this point he clinically looks pretty well. If I find otherwise on his blood work will consider admission but for now my plan is to let him go home with Augmentin. I will give him 1 dose of Zosyn while he is here in the department. Vital Signs: Vital signs: Vital Signs Temperature 98.2 F 08/09/20 13:01 Pulse Rate 83 08/09/20 20:27 Respiratory Rate 18 08/09/20 20:28 Blood Pressure 98/70 08/09/20 20:27 Pulse Oximetry 96 08/09/20 20:28 MDM - SOB/Dyspnea Lab Data: Labs: Lab Results 08/09/20 08/09/20 08/09/20 Range/Units 16:55 16:55 16:55 WBC 15.1 H (4.0-10.0) 10^3/ uL RBC 4.82 (4.1-5.3) 10^6/u L Hgb 14.3 (11.7-16.6) g/dL Hct 44.0 (42.0-52.0) % MCV 91.3 (80-94) fL MCH 29.7 (28.0-34.0) pg MCHC 32.5 (30.0-36.0) g/dL RDW 13.8 (12.1-15.1) % Plt Count 288 (130-400) 10^3/c mm MPV 9.4 (7.4-10.4) fL Neut % (Auto) 76.2 % Lymph % (Auto) 9.0 % [place] % (Auto) 12.8 % Eos % (Auto) 0.3 % Baso % (Auto) 0.4 % Neut # (Auto) 11.54 H (1.8-7.7) 10^3/u L Lymph # (Auto) 1.4 (0.8-4.8) 10^3/u L [place] # (Auto) 1.9 H (0.2-0.9) 10^3/u L Eos # (Auto) 0.1 (0.0-0.8) 10^3/u L Baso # (Auto) 0.1 (0.0-0.1) 10^3/u L Nucleated RBC % (a uto) 0 % Nucleated RBCs # 0.0 /100WBC ESR 88 H (0-10) mm/hr Sodium 135 L (136-145) mmol/L Potassium 4.0 (3.5-5.1) mmol/L Chloride 98 (98-107) mmol/L Carbon Dioxide 25 (22-29) mmol/L Anion Gap 16.0 (5-19) BUN 17 (8-23) mg/dL Creatinine 0.7 (0.7-1.2) mg/dL GFR Calculation 112.8 (90-130) mL/min Glucose 106 (65-115) mg/dL Calculated Osmolal ity 282 L (285-295) mOsm/k g Lactic Acid (0.5-2.2) mmol/L Calcium 9.3 (8.5-10.5) mg/dL Total Bilirubin 0.4 (0.15-1.2) mg/dL AST 22 (0-40) U/L ALT 20 (0-41) U/L Alkaline Phosphata se 90 (40-130) IU/L Troponin T Baselin e (0-15) ng/L Troponin T 120 Min three affiliated (0-15) ng/L Delta Troponin T (0-10) ABS# C-Reactive Protein (0.0-4.9) mg/L Total Protein 7.3 (6.6-8.7) g/dL Albumin 3.0 L (3.5-5.2) g/dL Globulin 4.3 (1.3-4.6) g/dL Procalcitonin (0-0.5) ng/mL 08/09/20 08/09/20 08/09/20 Range/Units 16:55 16:55 16:55 WBC (4.0-10.0) 10^3/ uL RBC (4.1-5.3) 10^6/u L Hgb (11.7-16.6) g/dL Hct (42.0-52.0) % MCV (80-94) fL MCH (28.0-34.0) pg MCHC (30.0-36.0) g/dL RDW (12.1-15.1) % Plt Count (130-400) 10^3/c mm MPV (7.4-10.4) fL Neut % (Auto) % Lymph % (Auto) % [place] % (Auto) % Eos % (Auto) % Baso % (Auto) % Neut # (Auto) (1.8-7.7) 10^3/u L Lymph # (Auto) (0.8-4.8) 10^3/u L [place] # (Auto) (0.2-0.9) 10^3/u L Eos # (Auto) (0.0-0.8) 10^3/u L Baso # (Auto) (0.0-0.1) 10^3/u L Nucleated RBC % (a uto) % Nucleated RBCs # /100WBC ESR (0-10) mm/hr Sodium (136-145) mmol/L Potassium (3.5-5.1) mmol/L Chloride (98-107) mmol/L Carbon Dioxide (22-29) mmol/L Anion Gap (5-19) BUN (8-23) mg/dL Creatinine (0.7-1.2) mg/dL GFR Calculation (90-130) mL/min Glucose (65-115) mg/dL Calculated Osmolal ity (285-295) mOsm/k g Lactic Acid 1.0 (0.5-2.2) mmol/L Calcium (8.5-10.5) mg/dL Total Bilirubin (0.15-1.2) mg/dL AST (0-40) U/L ALT (0-41) U/L Alkaline Phosphata se (40-130) IU/L Troponin T Baselin e 11 (0-15) ng/L Troponin T 120 Min three affiliated (0-15) ng/L Delta Troponin T (0-10) ABS# C-Reactive Protein 102.3 H (0.0-4.9) mg/L Total Protein (6.6-8.7) g/dL Albumin (3.5-5.2) g/dL Globulin (1.3-4.6) g/dL Procalcitonin 0.12 (0-0.5) ng/mL 08/09/20 Range/Units 19:15 WBC (4.0-10.0) 10^3/ uL RBC (4.1-5.3) 10^6/u L Hgb (11.7-16.6) g/dL Hct (42.0-52.0) % MCV (80-94) fL MCH (28.0-34.0) pg MCHC (30.0-36.0) g/dL RDW (12.1-15.1) % Plt Count (130-400) 10^3/c mm MPV (7.4-10.4) fL Neut % (Auto) % Lymph % (Auto) % [place] % (Auto) % Eos % (Auto) % Baso % (Auto) % Neut # (Auto) (1.8-7.7) 10^3/u L Lymph # (Auto) (0.8-4.8) 10^3/u L [place] # (Auto) (0.2-0.9) 10^3/u L Eos # (Auto) (0.0-0.8) 10^3/u L Baso # (Auto) (0.0-0.1) 10^3/u L Nucleated RBC % (a uto) % Nucleated RBCs # /100WBC ESR (0-10) mm/hr Sodium (136-145) mmol/L Potassium (3.5-5.1) mmol/L Chloride (98-107) mmol/L Carbon Dioxide (22-29) mmol/L Anion Gap (5-19) BUN (8-23) mg/dL Creatinine (0.7-1.2) mg/dL GFR Calculation (90-130) mL/min Glucose (65-115) mg/dL Calculated Osmolal ity (285-295) mOsm/k g Lactic Acid (0.5-2.2) mmol/L Calcium (8.5-10.5) mg/dL Total Bilirubin (0.15-1.2) mg/dL AST (0-40) U/L ALT (0-41) U/L Alkaline Phosphata se (40-130) IU/L Troponin T Baselin e (0-15) ng/L Troponin T 120 Min three affiliated 11.10 (0-15) ng/L Delta Troponin T 0.10 (0-10) ABS# C-Reactive Protein (0.0-4.9) mg/L Total Protein (6.6-8.7) g/dL Albumin (3.5-5.2) g/dL Globulin (1.3-4.6) g/dL Procalcitonin (0-0.5) ng/mL Discharge Plan Discharge Patient Disposition: Home Clinical Impression: Community acquired pneumonia Qualifiers: Laterality: left Lung location: lower lobe of lung Qualified Code(s): J18.9 - Pneumonia, unspecified organism Condition: Stable Prescriptions: New Augmentin 875-125 mg tablet 1 tab PO BID Qty: 14 RF: 0 hydrocodone-acetaminophen 5-325 mg tablet 1 tab PO Q6H PRN (Reason: pain) Qty: 14 RF: 0 No Action simvastatin 40 mg tablet 40 mg PO QPM RF: 0 albuterol sulfate 90 mcg/actuation HFA aerosol inhaler 2 puff INHALATION QID PRN (Reason: Shortness Of Breath) RF: 0 trazodone 100 mg tablet 50 mg PO BEDTIME RF: 0 Stiolto Respimat 2.5-2.5 mcg/actuation mist 2 puff inhalation DAILY Qty: 4 RF: 3 clopidogrel [Plavix] 75 mg Tablet 75 mg PO DAILY RF: 0 multivitamin Tablet 1 tab PO DAILY RF: 0 Aleve 220 mg Tablet 220 mg PO BID RF: 0 omeprazole 40 mg Capsule,Delayed Release(Dr/Ec) 40 mg PO DAILY RF: 0 metoprolol tartrate 25 mg Tablet 25 mg PO BID RF: 0 cholecalciferol (vitamin D3) [Vitamin D3] 25 mcg (1,000 unit) Capsule 1,000 unit PO DAILY RF: 0 aspirin [Aspirin Low Dose] 81 mg Tablet,Delayed Release (Dr/Ec) 81 mg PO DAILY RF: 0 Discharge Orders: Discharge Order (Routine); Ordered 08/09/20 Ordered By: Cheryl Walls Referrals: Hussain Orozco MD [Physician] - 08/31/20 Ariel Jane [Primary Care Provider] - Discharge Diet: Usual diet Discharge Activity: Resume usual activity Patient Instructions: Pneumonia (ED) Activity Restrictions/Additional Instructions: Take the antibiotics exactly as prescribed. You may take the hydrocodone for pain as needed. Return to the ER if not improving. Follow-up with Dr. Orozco as scheduled on August 31 or sooner if you are not improving. Coding Level of Care Code ED Applications Instructor for Chg Fwd Exam Comprehensive
[2020-08-09 17:16] LABS: Basophils # 0.1 10^3/uL (0.0-0.1); Basophils % 0.4 %; Eosinophils # 0.1 10^3/uL (0.0-0.8); Eosinophils % 0.3 %; Hemoglobin 14.3 g/dL (11.7-16.6); Lymphocytes # 1.4 10^3/uL (0.8-4.8); Mean Corpuscular HGB Conc 32.5 g/dL (30.0-36.0); Mean Corpuscular Hemoglobin 29.7 pg (28.0-34.0); Mean Corpuscular Volume 91.3 fL (80-94); Mean Platelet Volume 9.4 fL (7.4-10.4); Monocytes # 1.9 10^3/uL (0.2-0.9); Monocytes % 12.8 %; Neutrophils # 11.54 10^3/uL (1.8-7.7); Neutrophils % 76.2 %; Nucleated Red Blood Cells % 0 %; Platelet Count 288 10^3/cmm (130-400); Red Blood Count 4.82 10^6/uL (4.1-5.3); Red Cell Distribution Width 13.8 % (12.1-15.1); White Blood Count 15.1 10^3/uL (4.0-10.0)
[2020-08-09 17:58] LABS: Erythrocyte Sedimentation Rate 88 mm/hr (0-10)
[2020-08-09] MEDS: piperacillin-tazobactam 3.375 GM in sodium chloride 0.9% (plus) 50 ML IV (18:00)
[2020-08-09 18:06] LABS: Alanine Aminotransferase 20 U/L (0-41); Alkaline Phosphatase 90 IU/L (40-130); Aspartate Amino Transferase 22 U/L (0-40); Blood Urea Nitrogen 17 mg/dL (8-23); Calcium 9.3 mg/dL (8.5-10.5); Carbon Dioxide 25 mmol/L (22-29); Chloride 98 mmol/L (98-107); Globulin 4.3 g/dL (1.3-4.6); Glomerular Filtration Rate 112.8 mL/min (90-130); Glucose 106 mg/dL (65-115); Osmolality Calculated 282 mOsm/kg (285-295); Sodium 135 mmol/L (136-145); Total Bilirubin 0.4 mg/dL (0.15-1.2); Total Protein 7.3 g/dL (6.6-8.7)
[2020-08-09 18:07] LABS: C Reactive Protein 102.3 mg/L (0.0-4.9); Troponin(5th) Baseline 11 ng/L (0-15)
--- NOTE | 2020-08-09 18:30 | ECG_ITS ---
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 Measurements Intervals [place] Rate: 78 P: 60 MS: 159 QRS: 9 QRSD: 82 T: 44 QT: 364 QTc: 416 Interpretive Statements SINUS RHYTHM POSSIBLE RIGHT VENTRICULAR CONDUCTION DELAY [RSR (QR) IN V1/V2] Compared to ECG 08/09/2020 16:50:10 No significant changes Electronically Signed On 08-10-2020 22:32:14 PARACHUTE MARKER by Lyssa Roche M.D. [email or web address]
[2020-08-09 18:35] LABS: Procalcitonin 0.12 ng/mL (0-0.5)
[2020-08-09 19:28] VITALS: BP 103/74; PULSE 77; RESP 17; O2SAT 93
[2020-08-09 20:27] VITALS: BP 98/70; PULSE 83; O2SAT 96
[2020-08-09 20:28] VITALS: RESP 18; O2SAT 96
[2020-08-09] MEDS: morphine 4 mg/mL SDV 1 mL IVP (20:28)
== END 2020-08-09 20:27 | disposition home or self-care (01) ==
PROVIDERS: Family Medicine; Emergency Provider Emergency Medicine; PCP Family Medicine
DX: J44.0 Chronic obstructive pulmonary disease with (acute) lower respiratory infection (principal); J18.9 Pneumonia, unspecified organism; Z79.82 Long term (current) use of aspirin; Z79.02 Long term (current) use of antithrombotics/antiplatelets; E78.5 Hyperlipidemia, unspecified; I10 Essential (primary) hypertension; I25.2 Old myocardial infarction; Z98.61 Coronary angioplasty status; F17.210 Nicotine dependence, cigarettes, uncomplicated
CPT/HCPCS: 12345; 71045; 80053; 83605; 84145; 84484; 85025; 85651; 86140; 87040; 93005; 96365; 96375; 99282; 99284; J2270; J2543

== ENCOUNTER 2020-09-22 10:07 | Outpatient (CLI) | payer OTHER, MEDICARE, SELFPAY ==
--- NOTE | 2020-09-22 10:48 | XR_ITS ---
WS: [id number] Chest 2 views, 09/22/2020 Clinical Data: resolution of pneumonia Comparison: Portable chest, 08/09/2020. Findings: The lingular mass adjacent to the left cardiac border measures 4.2 cm in greatest diameter. No effusions are seen. There are calcified granulomas in both josh. The diaphragms are flattened. Th e pulmonary vascularity is not increased. No pneumonia or pneumothorax is seen. The heart is normal. The aortic arch and descending aorta are tortuous. XR/XR chest 2V* [id number] Impression: 1. Lingular mass adjacent to left cardiac border again is seen. 2. Clearing of patchy opacity of the lingula. 3. Hyperinflation and atherosclerosis.
== END 2020-09-22 10:08 | disposition home or self-care (01) ==
PROVIDERS: PCP Family Medicine; Visit Provider Internal Medicine Pulmonary Disease
DX: J18.9 Pneumonia, unspecified organism (principal); I70.90 Unspecified atherosclerosis
CPT/HCPCS: 71046

== ENCOUNTER 2020-10-01 08:21 | Outpatient (CLI) | payer OTHER, SELFPAY ==
[2020-10-01] MEDS: iohexol 300 mg/mL 50 mL Btl PO (08:50)
--- NOTE | 2020-10-01 10:00 | CT_ITS ---
WS: [id number] CT ABDOMEN PELVIS TECHNIQUE: Contrast-enhanced CT of the abdomen and pelvis with coronal and sagittal reformatted image s. CLINICAL INFORMATION: T85.528D - Displacement of other gastrointestinal prosthetic devices, implants and grafts, subsequent encounter COMPARISON: Prior PET/CT June 26, 2028, CT CTA January 10, 2012. Lumbar spine MRI DLP: 808.[address] scans at [facility] use at least one of these dose optimization techniques: automat ed exposure control; mA and/or kV adjustment per patient size (includes targeted exams where dose is matched to clinical indication); or iterative reconstruction. FINDINGS: Distal abdominal aortic aneurysm with common iliac stents and right external iliac stent. Distal abdo rpuert aortic aneurysm with peripheral mural thrombus measures approximately 4.4 x 4.6 x 5.6 cm AP by transverse by craniocaudal. Compared to 2017 this is increased in size where it measured approximatel y 3.6 x 3.9 x 5.9 CM. Aneurysm appears unchanged since the lumbar spine MRI in 2019. Increased nonopa cified mural thrombus compared to 2017. Mild diffuse fatty infiltration of the liver. Normal portal vein and splenic vein. Adrenal glands are normal. Normal renal parenchymal enhancement. No hydronephrosis. Peripelvic left renal cyst or extra renal pelvis measuring 4.2 CM. Adrenal glands are normal. No evidence of high-grade small or large bowel obstruction. Fat-containing umbilical hernia. No abdom inal or pelvic lymphadenopathy. Fat-containing right inguinal hernia. Moderate spondylitic changes carol mbar spine. Moderate central canal stenosis at L1-2 due to disc osteophyte complex. Lumbar curve conv ex left. CT/CT abdomen pelvis w con* [id number] IMPRESSION: 1. Aneurysmal distal abdominal aorta with peripheral mural thrombus increased in size since today measuring 4.4 x 4.6 x 5.6 cm AP x transverse x cranio caudal. This appears relatively stable since MRI lumbar spine . 2. Bilateral common iliac stents and right external iliac stent. 3. Mild diffuse fatty infiltration of the liver. 4. Left peripelvic cyst or extra renal pelvis measuring 4.2 cm. 5. No hydronephrosis.]
[2020-10-01 10:08] LABS: Blood Urea Nitrogen 12 mg/dL (8-23); Glomerular Filtration Rate 134.8 mL/min (90-130)
[2020-10-01] MEDS: iohexol 300 mg/mL 100 mL Btl IV (10:17)
== END 2020-10-01 08:22 | disposition home or self-care (01) ==
LOC: RADWPI 08:25
PROVIDERS: PCP Family Medicine; Visit Provider Surgery
DX: T85.528D Displacement of other gastrointestinal prosthetic devices, implants and grafts, subsequent encounter (principal); X58.XXXD Exposure to other specified factors, subsequent encounter; I71.4 Abdominal aortic aneurysm, without rupture; I21.9 Acute myocardial infarction, unspecified; K76.0 Fatty (change of) liver, not elsewhere classified
CPT/HCPCS: 74177; 82565; 84520; Q9967

== ENCOUNTER 2020-10-04 08:45 | Outpatient (CLI) | payer OTHER, SELFPAY ==
--- NOTE | 2020-10-04 | FL_ITS ---
WS: [id number] Single contrast upper GI examination. HISTORY: Displacement of prosthetic device. History of esophageal stent placement. Progressive upper abdominal pain. COMPARISON: 11/28/2017. Swallow. CT abdomen 10/01/2020. Only single contrast and limited amount of barium utilized for this examination. Patient has an esophageal stent which has migrated into the stomach. On the recent CT from 10/01/2019 the stent overlie the antrum and proximal duodenum. On today's upper GI examination the stent courses over a length of approximately 5.2 cm and is oriented along the proximal duodenal C-loop. The proxim al and distal stent surface is very irregular and probably encroaching into the mucosa. No obstructio n of the stomach. Patient was able to swallow the barium mixture without difficulty. No esophageal ab normality was evident other than some mild mucosal thickening distally. There is delayed emptying from the stomach into the duodenal C-loop. The delayed is predominantly in the distal portion of the stent. Approximately 20 minute delay in emptying. There is no extravasation . No perforation at this time. OR/OR upper GI series [id number] IMPRESSION: 1. Esophageal stent has migrated and is now at the junction of the stomach wit h the proximal duodenum. Very mild delay in emptying of contrast through the du odenum. 2. No perforation. Notified Lonnie Taveras MD at 10/04/2020 10:19 AM. Unable to speak with Dr. Shilo malin at this time. Message left for Dr. Taveras to review report when available.
--- NOTE | 2020-10-04 08:59 | FL_ITS ---
WS: [id number] Single contrast upper GI examination. HISTORY: Displacement of prosthetic device. History of esophageal stent placement. Progressive upper abdominal pain. COMPARISON: 11/28/2017. Swallow. CT abdomen 10/01/2020. Only single contrast and limited amount of barium utilized for this examination. Patient has an esophageal stent which has migrated into the stomach. On the recent CT from 10/01/2019 the stent overlie the antrum and proximal duodenum. On today's upper GI examination the stent courses over a length of approximately 5.2 cm and is oriented along the proximal duodenal C-loop. The proxim al and distal stent surface is very irregular and probably encroaching into the mucosa. No obstructio n of the stomach. Patient was able to swallow the barium mixture without difficulty. No esophageal ab normality was evident other than some mild mucosal thickening distally. There is delayed emptying from the stomach into the duodenal C-loop. The delayed is predominantly in the distal portion of the stent. Approximately 20 minute delay in emptying. There is no extravasation . No perforation at this time.
== END 2020-10-04 08:46 | disposition home or self-care (01) ==
LOC: RADWPI 08:48
PROVIDERS: PCP Family Medicine; Visit Provider Surgery
DX: T85.528A Displacement of other gastrointestinal prosthetic devices, implants and grafts, initial encounter (principal); X58.XXXA Exposure to other specified factors, initial encounter
CPT/HCPCS: 74240; 74246

== ENCOUNTER → 2020-10-08 10:41 | Outpatient (BNVA) | payer OTHER, SELFPAY | PROVIDERS: PCP Family Medicine; Visit Provider Surgery | DX: T85.528D Displacement of other gastrointestinal prosthetic devices, implants and grafts, subsequent encounter (principal) | CPT/HCPCS: 87635 ==

== ENCOUNTER 2020-10-13 08:16 | Day surgery (SDC) | payer OTHER, SELFPAY ==
[2020-10-12 11:21] VITALS: BMI 22.3
--- NOTE | 2020-10-12 13:13 | SUR.PREOP ---
notified dr pierce that pt took plavix 10/11. Per its fine.
--- NOTE | 2020-10-13 08:37 | XR_ITS ---
WS: [id number] Abdomen series, Flat and upright 10/13/2020 Clinical Data: surgery Comparison: Upper GI series, 10/04/2020, CT abdomen and pelvis, 10/01/2020. Findings: There is an esophageal stent which is migrated and now overlies the distal stomach. There a re vascular stents in the common iliac arteries. There is a levoscoliosis. There is radiopaque materi al overlying the left lower lobe which may be residual contrast in the left lower lobe. There is an a bdominal aortic aneurysm. There is a levoscoliosis. There is air in the stomach, small bowel and colo n but no evidence of obstruction. No free air is seen beneath the diaphragms. XR/XR abdomen min 2V [id number] Impression: 1. Esophageal stent which is migrated into the distal stomach. 2. Abdominal aortic aneurysm. 3. Vascular stents in the common iliac arteries. 4. Negative for acute intra-abdominal abnormality.
[2020-10-13 09:07] VITALS: BP 110/85; PULSE 79; RESP 18; TEMP 36.1; O2SAT 95
--- NOTE | 2020-10-13 09:21 | P.ANESASSM_ITS ---
Pre-Anesthetic Assessment Pre-Anesthetic Assessment: Height/Weight: Height 1.73 m Weight 66.678 kg Temp Pulse Resp BP Pulse Ox 97.0 F L 79 18 110/85 95 10/13/20 09:07 10/13/20 09:07 10/13/20 09:07 10/13/20 09:07 10/13/20 09:07 Preop Diagnosis: migrated esophageal stent Proposed Procedure: Operation Date: 10/13/20 09:55 Proposed Procedures p Laparoscopic poss open removal of gastric stent [id number] T85.528D(Not Applicable) - Lonnie Taveras MD Familial anesthetic complications: None Was Beta Sasha taken within 24 hours: N/A Last intake: Intake Last Liquid Date 10/12/20 Last Liquid Time 19:30 Last Solid Date 10/12/20 Last Solid Time 18:30 Social: Social History: Tobacco and No alcohol Exam: Pre-Anes Outpt Exam: alert, oriented x 3, clear to auscultation bilaterally and regular rate & rhythm Airway: Cervical ROM: WNL MP: 1 Dentition: Full Pulmonary: Pulmonary: COPD Comments: 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 CV/HEM: CV/HEM: CAD (5 stents > 1 year ago, no complaints of chest pains), HTN, NV and PVD Comments: thoracic aortic aneurysm GI: GI: GERD Anesthetic Plan: ASA status: 3 Anesthesia: General Risk of > 500 ml blood loss (7ml/kg in children): No PFSH Anesthesia PFSH: Medical History ASHD (arteriosclerotic heart disease) Chronic back pain COPD (chronic obstructive pulmonary disease) Dyslipidemia HTN (hypertension) Intervertebral disc disorder with radiculopathy of lumbosacral region Myocardial infarction Peripheral arterial disease Polycythemia Thoracic aortic aneurysm Tracheoesophageal fistula Surgical History History of coronary angioplasty History of lumbar discectomy [facility], 2011 S/P bronchoscopy with biopsy S/P insertion of iliac artery stent Family History Denies family history of Anesthesia complication Bleeding disorder Social History Smoking and tobacco status: former smoker Quit status (tobacco): has quit using tobacco Year quit tobacco: Jul 2020 [id number] Second hand smoke exposure: No Smoking risk assessment/counseling performed?: Yes Alcohol intake: never Caregiver/support person: Yes Lives independently: Yes Household members: none Marital status: Single service: Yes branch: [employer] Current occupational status: retired History of recent travel: No Current gender identity: Male Data Anesthesia Cardiac Studies: No Data to Display
[2020-10-13] MEDS: sodium chloride 0.9% 1,000 ML 30 ML IV (09:28)
[2020-10-13 12:28] VITALS: BP 126/80; PULSE 76; RESP 16; TEMP 36.3; O2SAT 96
[2020-10-13 12:30] VITALS: PULSE 70; RESP 18; O2SAT 97
[2020-10-13 12:35] VITALS: BP 110/82; PULSE 68; RESP 19; O2SAT 96
[2020-10-13 12:40] VITALS: BP 118/82; PULSE 66; RESP 16; TEMP 36.4; O2SAT 95
--- NOTE | 2020-10-13 12:40 | P.OP_ITS ---
Operative Report Date of procedure: October 13, 2020 Pre-op Diagnosis: Migrated esophageal stent for history of tracheoesophageal fistula Post-op Findings: Removal of migrated esophageal stent No evidence of perforation Gastric ulceration at the antrum where the stent was embedded Procedure Done: Esophagogastroduodenoscopy with removal of migrated esophageal stent Specimens removed/disposition: Esophageal stent Surgeon: Lonnie Taveras Anesthesia: General Condition: stable Disposition: PACU Brief History: This is a 64-year-old male who had esophageal stent placed previously for tracheoesophageal fistula. Patient was recently transferred to [place] with abdominal pain and was noted to have a migrated esophageal stent in the stomach. An attempt was made by GI in [place] to remove the stent but since it was embedded within the gastric wall and the stent could not be removed and surgical removal was recommended. Patient therefore presented here for further evaluation. I planned to attempt another EGD prior to surgery though patient has been consented for laparoscopic possible open removal of gastric stent. Procedure: The patient was taken to the operating room and intubated under general anesthesia. A bite block was placed and a gastroscope was introduced and advanced into the duodenum. Esophagus and first and second part of the duodenum was normal. In the stomach the fundus, body were normal. In the antrum there was a migrated esophageal stent noted which was embedded into the gastric wall. The stent was grasped with biopsy forceps and pulled into the gastric lumen. There was no significant bleeding noted though there was large ulceration in the antrum seen at the site where the stent was embedded. Multiple different instruments were used including rescue net, 3 prong grasper, biopsy forceps, medium snare The stent was finally removed after it was grasped with a large snare. The gastroscope was reintroduced and advanced up to the duodenum. There is no evidence of esophageal or gastric perforation and no evidence of active bleeding noted. The gastroscope was withdrawn. The patient was extubated and transferred recovery room in stable condition.
--- NOTE | 2020-10-13 15:00 | ANE.PACU2 ---
Inpatient post-anesthesia follow up: Airway intact: Yes Vital signs: Temperature 97.5 F Pulse Rate 66 Respiratory Rate 16 Blood Pressure 118/82 Pulse Oximetry 95 Oxygen Delivery Me thod Room Air Oxygen Flow Rate Fraction of Inspir ed Oxygen Hydration adequate: Yes Nausea and vomiting: No Pain level: 2 Mental status: Baseline
--- NOTE | 2020-10-14 16:39 | W.PM.OPSUD ---
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
== END 2020-10-13 13:14 | disposition home or self-care (01) ==
PROVIDERS: PCP Family Medicine; Visit Provider Surgery
PROC: 0DJ08ZZ Inspection of Upper Intestinal Tract, Via Natural or Artificial Opening Endoscopic (ICD-10-PCS; CPT 43235; 2020-10-13 09:55)
DX: T85.528A Displacement of other gastrointestinal prosthetic devices, implants and grafts, initial encounter (principal); J44.9 Chronic obstructive pulmonary disease, unspecified; I25.10 Atherosclerotic heart disease of native coronary artery without angina pectoris; Z95.5 Presence of coronary angioplasty implant and graft; I10 Essential (primary) hypertension; I25.2 Old myocardial infarction; K21.9 Gastro-esophageal reflux disease without esophagitis; Z87.891 Personal history of nicotine dependence
CPT/HCPCS: 12345; 43247; 74019; 88305; J1100; J2250; J2370; J2405; J2704; J2710; J3010; J3490; J7030

== ENCOUNTER 2021-01-24 12:43 | Outpatient (CLI) | payer OTHER, SELFPAY ==
--- NOTE | 2021-01-24 13:00 | CTR_ITS ---
PROCEDURE INFORMATION: Exam: CTA Abdomen and Pelvis With Contrast Exam date and time: 01/24/2021 1:25 PM Age: 65 years old Clinical indication: Condition or disease; Other: - abdominal aortic aneurysm, without rupture; Arterial aneurysm; Prior surgery; Surgery type: Stent; Additional info: I71.4 - abdominal aortic aneurysm, without rupture TECHNIQUE: Imaging protocol: Computed tomographic angiography of the abdomen and pelvis with contrast material. 3D rendering (Not supervised by radiologist): MIP and/or 3D reconstructed images were created by the technologist. Radiation optimization: All CT scans at this facility use at least one of these dose optimization techniques: automated exposure control; mA and/or kV adjustment per patient size (includes targeted exams where dose is matched to clinical indication); or iterative reconstruction. Contrast material: OMNI 350; Contrast volume: 95 ml; Contrast route: INTRAVENOUS (IV); COMPARISON: CT abdomen pelvis w con* [id number] 10/01/2020 10:13 AM RADIATION DOSE METRICS: Total DLP (mGy-cm): 538.03 FINDINGS: Lungs: Mild atelectasis versus fibrosis noted at the lung bases. Aorta: Infrarenal abdominal aortic aneurysm measuring 4.8 cm AP x 4.7 cm transverse x 6.5 cm craniocaudal. There is a large amount of mural thrombus noted within the aneurysm. No aneurysm leak or rupture. Left proximal femoral arteries are atherosclerotic but patent. Celiac trunk and mesenteric arteries: Celiac artery is mildly stenotic at its origin. The superior mesenteric artery is moderately stenotic at its origin. The mid/distal inferior mesenteric artery appears patent via collaterals. Renal arteries: Renal arteries are mildly atherosclerotic proximally with mild stenosis. No high-grade stenosis of the renal arteries. Accessory right renal artery noted. Right iliac arteries: Right common iliac artery and right external iliac artery are stented. The right iliac arteries are occluded. Right femoral/popliteal arteries: Right proximal femoral arteries are atherosclerotic but patent. Left iliac arteries: Left common iliac and left external iliac arteries are stented, and are patent. Liver: Liver is unremarkable in appearance. Gallbladder and bile ducts: The gallbladder is contracted. No calcified gallstones demonstrated. Pancreas: The pancreas is normal in appearance. No pancreatic duct dilatation. Spleen: Calcified granulomas are noted in the spleen. Adrenal glands: The adrenal glands appear within normal limits. Kidneys and ureters: Large extrarenal pelvis left kidney. Cortical scarring lower pole left kidney. No solid renal mass. No calculus or hydronephrosis. 9 mm simple appearing cyst lower pole left kidney. Stomach and bowel: Unremarkable. No obstruction. No mucosal thickening. Appendix: No evidence of appendicitis. Intraperitoneal space: No pneumoperitoneum. No significant fluid collection. Lymph nodes: Unremarkable. No enlarged lymph nodes. Urinary bladder: Unremarkable. No mass. Reproductive: Unremarkable as visualized. Bones/joints: Scoliosis and degeneration of the lumbar spine. Soft tissues: Right inguinal hernia, containing only fat. CT/CT angio abdomen pelvis [id number] IMPRESSION: 1. Infrarenal abdominal aortic aneurysm measuring 4.8 cm AP x 4.7 cm transverse x 6.5 cm craniocaudal. There is a large amount of mural thrombus noted within the aneurysm. No aneurysm leak or rupture. The aneurysm is not significantly changed in size from 10/01/2020, when differences in measurement technique between the 2 studies is taken into account. 2. Right common iliac artery and right external iliac artery are stented. The right iliac arteries are occluded. Left common iliac artery and left external iliac artery are stented, but appear patent. These findings are unchanged from 10/01/2020. 3. Large extrarenal pelvis left kidney. Cortical scarring lower pole left kidney. No solid renal mass. No calculus or hydronephrosis. This is unchanged. Radiation Dose CTDIVOL = (mGy): DLP = 538.03 (mGy-cm)
[2021-01-24 14:17] LABS: Blood Urea Nitrogen 17 mg/dL (8-23); Glomerular Filtration Rate 112.5 mL/min (90-130)
[2021-01-24] MEDS: iohexol 350 mg/mL 100 mL Btl IV (14:50)
== END 2021-01-24 12:44 | disposition home or self-care (01) ==
LOC: RAD 12:46
PROVIDERS: PCP Family Medicine; Visit Provider Thoracic Surgery (Cardiothoracic Vascular Surgery)
DX: I71.4 Abdominal aortic aneurysm, without rupture (principal); I74.5 Embolism and thrombosis of iliac artery
CPT/HCPCS: 36415; 74174; 82565; 84520

== ENCOUNTER 2021-02-11 09:24 | Outpatient (CLI) | payer OTHER, SELFPAY ==
--- NOTE | 2021-02-11 10:15 | USCV_ITS ---
Eber Fernandez Age: 65 Gender: M : 1955 Exam Date: 02/11/2021 10:26 Ordering Phys: Jareth Jefferson M.D ([email or web address]) Technologist: [email or web address] [place] [facility] [place]ication: LEG PAIN Risk Factors: Previous Vascular Surgery: RIGHT LEFT BP: 134.0 / BP: 133.0/ 0 0 Waveform Velocity (cm/s) Velocity (cm/s) Waveform Iliac Prox 118.8 Triphasic Monophasic 13.2 Iliac Mid 102.4 Triphasic Monophasic 39.1 Iliac Distal 108.1 Triphasic Monophasic 22.7 MAINTENANCE MAN 66.9 Biphasic Monophasic 26.3 SFA Prox 58.9 Biphasic Monophasic 22.7 SFA Mid 62.1 Biphasic Monophasic 20.4 SFA Dist 65.3 Biphasic Monophasic 16.8 POP 54.8 Biphasic Monophasic 12.7 INDUSTRIAL DESIGNER 42.7 Biphasic DPA 31.4 Biphasic 0.6 ALEIDA 1.1 FINDINGS PT HAD ALEIDA STUDY DONE SAME TIME SEE THAT STUDY FOR PRESSURES Normal resting ALEIDA on the right side. Monophasic and continuous Doppler waveforms in the right iliac, femoral , popliteal and infrapopliteal vessels. No Doppler signals in the proximal iliac and dorsalis pedis artery. Normal resting ALEIDA on the left side Mild to moderate diffuse plaques in the iliac and femoral arteries on the left side CONCLUSIONS 1. Features suggesting possibly occluded right proximal iliac artery stent with collateral filling 2. Possibly occluded dorsalis pedis artery on the right side. 3. Abnormal resting ALEIDA of 0.6 on the right side. 4. Mild to moderate diffuse plaques in the iliac and femoral artery on the left side with normal resting ALEIDA, suggesting no significant arterial obstruction Compared to the study from 12/17/2019, the occlusion of the proximal iliac artery appears to be new. Consider CTA, to better evaluate the proximal segment of the common iliac artery. Dr Lyssa Roche MD [facility] (Electronically Signed) Final Date: 14 February 2021 09:26 S
== END 2021-02-11 09:25 | disposition home or self-care (01) ==
LOC: RAD 09:25
PROVIDERS: PCP Family Medicine; Visit Provider Internal Medicine
DX: M79.604 Pain in right leg (principal); M79.605 Pain in left leg; I70.8 Atherosclerosis of other arteries
CPT/HCPCS: 93922; 93925

== ENCOUNTER 2021-02-21 10:45 | Outpatient (CLI) | payer OTHER, MEDICARE, SELFPAY ==
--- NOTE | 2021-02-21 10:55 | XR_ITS ---
WS: [id number] Exam: XR chest 2V* [id number] Date/Time of Exam: 02/21/2021 11:02 AM Reason For Exam: resolution of pneumonia Previously noted lingular infiltrate has almost completely resolved. Small amount loculated fluid in the minor fissure on the right. The lungs are fully inflated. Fibrous scarring in the upper and lower lobes the left lung. Heart size is normal. Signs of previous coronary artery stenting. The mediastin um and bony thorax are unremarkable. XR/XR chest 2V* [id number] IMPRESSION: 1. Previously noted lingular pneumonia has almost completely resolved. 2. Superimposed chronic changes in the upper and lower lobes of the left lung. 3. Small amount loculated fluid in the minor fissure on the right.
== END 2021-02-21 10:46 | disposition home or self-care (01) ==
PROVIDERS: PCP Family Medicine; Visit Provider Internal Medicine Pulmonary Disease
DX: J18.9 Pneumonia, unspecified organism (principal)
CPT/HCPCS: 71046

== ENCOUNTER 2021-02-25 13:50 | Observation (INO) | payer OTHER, MEDICARE, SELFPAY ==
[2021-02-22 10:53] LABS: Basophils # 0.1 10^3/uL (0.0-0.1); Basophils % 0.9 %; Eosinophils # 0.2 10^3/uL (0.0-0.8); Hematocrit 48.5 % (42.0-52.0); Lymphocytes # 2.9 10^3/uL (0.8-4.8); Lymphocytes % 30.8 %; Mean Corpuscular Hemoglobin 30.4 pg (28.0-34.0); Mean Platelet Volume 9.8 fL (7.4-10.4); Monocytes # 1.2 10^3/uL (0.2-0.9); Monocytes % 12.8 %; Neutrophils # 4.94 10^3/uL (1.8-7.7); Nucleated Red Blood Cells % 0 %; Platelet Count 237 10^3/cmm (130-400); Red Blood Count 5.27 10^6/uL (4.1-5.3); Red Cell Distribution Width 14.7 % (12.1-15.1); White Blood Count 9.3 10^3/uL (4.0-10.0)
[2021-02-22 11:08] LABS: INR 0.91 (0.8-1.2)
[2021-02-22 11:09] LABS: Anion Gap 17.1 (5-19); Blood Urea Nitrogen 20 mg/dL (8-23); Calcium 9.2 mg/dL (8.5-10.5); Carbon Dioxide 23 mmol/L (22-29); Chloride 103 mmol/L (98-107); Glomerular Filtration Rate 112.5 mL/min (90-130); Glucose 85 mg/dL (65-115); Osmolality Calculated 290 mOsm/kg (285-295); Potassium 4.1 mmol/L (3.5-5.1); Sodium 139 mmol/L (136-145)
[2021-02-25] VITALS (21 sets, daily range): BP systolic 117–162; BP diastolic 78–107; PULSE 54–72; RESP 2–25; TEMP 36.8; O2SAT 89–98; BMI 22.8
--- NOTE | 2021-02-25 11:00 | XACV_ITS ---
Wt: 68 kg BSA: 1.81 m2 Any Known Allergies: No known allergies Gender: Male : 1955 Exam Type: Invasive Peripheral Vascular Procedure(s): Procedure Description: Peripheral Cath Diagnostic Procedure Procedure Description: Abdominal aortic angiography Procedure Description: Lower extremities' angiography Exam Priority: Routine Abdominal Diagnostic Findings Patent distal aorta. Lower Extremity Diagnostic Findings Left common iliac artery: Patent stent Left external iliac artery: Patent stent Left internal iliac artery: Patent Left common femoral artery: Patent Left profunda femoral artery: Patent Left SFA: Patent Left popliteal artery: Patent TP segment : Patent Anterior tibial artery: Patent PT: Patent Peroneal artery: Patent . Right common iliac artery: Occluded stent Right external iliac artery: Occluded stent Right internal iliac artery: Occluded Right common femoral artery: Occluded. Right profunda femoral artery:Occluded Right SFA: Occluded. Receives collaterals from both contralateral side and ipsilateral side. Small amount of blood flow downstream Left popliteal artery: Flow seen but can not rule out stenosis because of poor visualization Below the knee vessels not well visualized. Lower Extremity Interventional Findings We briefly attempted to cross the glidewire into the right sided occluded stent however wire could not cross. We aborted the procedure at this time. Conclusions Occluded right common iliac and external iliac arteries. Occluded SFA. Collaterals seen. Left sided iliac stents patent. Recommendations Patient will need CTA with specific focus on the popliteal and below the knee vessels on the right side. If popliteal artery is patent, we will attempt revascularization of the right lower extremity from popliteal artery. Access Site Site: Left Femoral artery Sheath Size: 6 Fr Hemost... Method: Angio-Seal VIP ([facility]) Hemost... Success: Successful Procedure Details Findings Procedure Consent Obtained. Admit Source: Out Patient. Pre-Procedure Time Out. Identified patient by full name and date of as verbalized by the patient/guarantor. Does the consent match the physician's order: Yes. Accurate & Complete Informed Consent: Yes. Inpatient/Outpatient History & Physical on Chart: Yes. If H&P is completed, is and addenduem needed: Yes; If yes, is the addendum complete: N/A. Visualize and Verify Site with Patient/Guarantor: N/A. Relevant Radiology Images available: N/A. Pre-op teaching completed and patient verbalized understanding. The risks, benefits, and alternatives of sedation and/or procedure were discussed by physician. The patient agrees to continue. Procedure started. Correct patient, site and procedure confirmed by cath team. PERRLA. Strong, equal hand sole leveler bilaterally. Lungs clear x 5 lobes. IV Site on Arrival: 20 gauge in the left anticubital. Pre Procedural Pulses: right dorsalis pedis was Doppled. Pre Procedural Pulses: left dorsalis pedis was 2+. Pre Procedural Pulses: bilateral posterior tibial was 1+. Pre Procedural Pulses: right radial was 2+. Oxygen started at 2liters/min via nasal canula. bilateral groins was prepped with chloroprep then draped in the usual sterile fashion. Physician notified. Baseline sample Acquired. HR: 61 BPM. Physician arrived. Physician scrubbed in. Immediate Pre-Procedure Time Out. Correct Patient: Yes; Correct Procedure: Yes; Correct Site: Yes; Correct Patient Position: Yes; Correct Supplies: Yes; Dried Flammable Prep: Yes; Blood Products Available: N/A;. Lidocaine 1% infiltrated to the left groin. Arterial access obtained. dialator inserted. hand injection performed. Hand injection performed. A 5FrFr UF catheter in over wire. Abdominal aortogram performed in AP @ 10 mL/sec for a total of 30 mL. Catheter out. A 5FrFr RIM catheter in over wire. Catheter out. A 5FrFr UF catheter in over wire. Abdominal aortogram performed in AP @ 10 mL/sec for a total of 30 mL. Catheter out. Runoff of left leg performed 10mL per sec for a total of 30mL. Angioseal placed without complications. No signs or symptoms of hematoma noted. Sterile dressing applied per usual sterile fashion. Post Procedure: Pulses reassessed and unchanged. PERRLA. Strong, equal hand sole leveler bilaterally. No VTE prophylaxis required. Medication's Wasted: Lidocaine 1% = 10 mL. Medication's Wasted: Heparin = 1000 units. Total IV fluids: 49 mL. Contrast type used: Visipaque 320 mgI/mL, 500 mL bottle. Contrast Material : Visipaque 95 ml. Post-op diagnosis: occluded Right common illiac, and occluded osteal SFA. Complications: none. Estimated blood loss: 5mL-10mL. Procedure completed. Patient transferred by bed to 1st floor. A Angio-Seal VIP ([facility]) was successful obtaining hemostatsis at the Left Femoral artery insertion site. Vital chart was stopped. Procedure Medications Start: 12:56 PM Stop: 12:56 PM Medication: Versed Amount: 1 mg Route: I.V. Start: 12:56 PM Stop: 12:56 PM Medication: Fentanyl Amount: 50 mcg Route: I.V. Start: 1:03 PM Stop: 1:03 PM Medication: Versed Amount: 1 mg Route: I.V. Start: 1:03 PM Stop: 1:03 PM Medication: Fentanyl Amount: 50 mcg Route: I.V. I, the attending physician, have reviewed and verified all procedure medications. Yes, all medications given per verbal order History/Risk Factors Hypertension: Yes Dyslipidemia: Yes Myocardial Infarction ([place]): Yes Tobacco Use: Former Report Signatures Finalized by Jareth Jefferson MD on 03/11/2021 10:05 PM
[2021-02-25 12:00] LABS: SARS Covid-2 Antigen Negative (Negative)
--- NOTE | 2021-02-25 12:40 | P.HP_ITS ---
Same Day Surgery H&P Indication for Procedure/HPI DATE OF PROCEDURE: February 25, 2021 CHIEF COMPLAINT/INDICATIONFOR SURGICAL PROCEDURE: Severe life-style limiting claudication PREOP DIAGNOSIS: Severe lifestyle limiting claudication PLANNED PROCEDRUE: Operation Date: 02/25/21 12:00 Proposed Procedures p Peripheral Diagnostic 33058 I73.9(Not Applicable) - Jareth Jefferson M.D Possible peripheral intervention 65-year-old man with past medical history of coronary artery disease, smoking with COPD, dyslipidemia, polycythemia secondary to tobacco abuse, hypertension and a history of myocardial infarction who has been having severe life-style limiting claudication and arterial duplex showed possible occlusion of the right iliac artery. ROS CONSTITUTIONAL: No fever chills weight loss or gain or night sweats. [] HEENT: Normocephalic, atraumatic.[] RESPIRATORY: No cough, sputum, hemoptysis or wheezing.[] CARDIOVASCULAR: No shortness of breath, chest pain, PND, orthopnea, lower extremity edema, presyncope or syncope. [] GI: no nausea vomiting diarrhea. [] INSPECTOR OF WEIGHTS AND MEASURES: No numbness, tingling, weakness or loss of function in any part of the body. [] MUSCULOSKELETAL: No knee or joint pain or rashes. [] Medications/Allergies* Home Medications Medication Instructions Recorded Confirmed Type aspirin [Aspirin Low Dose] 81 mg PO DAILY 11/04/19 02/25/21 History cholecalciferol (vitamin D3) 1,000 unit PO DAILY 11/04/19 02/25/21 History [Vitamin D3] metoprolol tartrate 25 mg PO BID 11/04/19 02/25/21 History omeprazole 40 mg PO DAILY 11/04/19 02/25/21 History simvastatin 40 mg tablet 40 mg PO QPM 12/24/19 02/25/21 History trazodone 100 mg tablet 50 mg PO BEDTIME tab 07/19/20 02/25/21 History clopidogrel [Plavix] 75 mg PO DAILY 07/22/20 02/25/21 History multivitamin 1 tab PO DAILY 08/09/20 02/25/21 History naproxen sodium [Aleve] 220 mg PO BID 08/09/20 02/25/21 History albuterol sulfate 90 mcg/actuation 2 puff INHALATION Q6H PRN 02/21/21 02/25/21 History aerosol inhaler Allergies/Adverse Reactions Allergy/AdvReac Type Severity Reaction Status Date / Time No Known Allergies Allergy Verified 02/21/21 09:57 Pertinent History/Comorbid Conditions* Medical History (Updated 02/22/21 @ 21:35 by Hussain Orozco MD) ASHD (arteriosclerotic heart disease) Chronic back pain COPD (chronic obstructive pulmonary disease) Dyslipidemia HTN (hypertension) 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 Migrated esophageal stent removed endoscopically 10/13/20 Myocardial infarction Peripheral arterial disease Polycythemia Thoracic aortic aneurysm Tracheoesophageal fistula Surgical History (Updated 11/01/20 @ 14:33 by Lonnie Taveras MD) H/O esophagogastroduodenoscopy (10/13/20) for removal of migrated esophageal stent History of coronary angioplasty History of lumbar discectomy [facility], 2011 S/P bronchoscopy with biopsy S/P insertion of iliac artery stent Family History (Updated 09/20/20 @ 13:08 by LISA Montero) Denies family history of Anesthesia complication Bleeding disorder Social History Smoking and tobacco status: former smoker Quit status (tobacco): has quit using tobacco Year quit tobacco: Jul 2020 [id number] Second hand smoke exposure: No Smoking risk assessment/counseling performed?: Yes Alcohol intake: never Caregiver/support person: Yes Lives independently: Yes Household members: none Marital status: Single service: Yes branch: [employer] Current occupational status: retired Pets and animals: Yes History of recent travel: No Current gender identity: Male Pertinent Exam Findings alert, oriented x 3, clear to auscultation bilaterally and regular rate & rhythm Conscious Sedation Assessment PATIENT ASSESSED PRIOR TO SEDATION, WITH NO CHANGE NOTED: Yes AIRWAY EVAL/ANESTHESIA PLAN: ASA III, Risks, benefits & alternatives of sedation and/or procedure discussed and Patient agrees to continue as planned Recommendations Surgery/Procedure today (Peripheral angiogram with possible intervention) Coding Level of Care Code Acute Aircraft Pneudraulics Repairer for Malu Galvin
--- NOTE | 2021-02-25 13:45 | PC.NURSE ---
patient received from r&d lab technician via bed left groin site clean dry and intact no hematoma noted
--- NOTE | 2021-02-25 20:10 | PC.RESP ---
Pulmonary Rehab information sent to patient.
== END 2021-02-25 19:04 | disposition home or self-care (01) ==
LOC: CCL 15:21 → CSU 18:28
PROVIDERS: Admitting Provider Internal Medicine; PCP Family Medicine; Visit Provider Internal Medicine
DX: I70.201 Unspecified atherosclerosis of native arteries of extremities, right leg (principal); I25.10 Atherosclerotic heart disease of native coronary artery without angina pectoris; E78.5 Hyperlipidemia, unspecified; I10 Essential (primary) hypertension; I25.2 Old myocardial infarction; Z87.891 Personal history of nicotine dependence
CPT/HCPCS: 36415; 75625; 75710; 80048; 85025; 85610; 87426; C1760; C1769; C1887; C1894; G0378; J1644; J2250; J3010; J7030; Q0163; Q9967

== ENCOUNTER → 2021-03-10 14:36 | Outpatient (BNVA) | payer OTHER, MEDICARE, SELFPAY | PROVIDERS: PCP Family Medicine; Referring Provider Thoracic Surgery (Cardiothoracic Vascular Surgery); Visit Provider Orthopaedic Surgery | DX: M54.5 Low back pain (principal); M47.9 Spondylosis, unspecified; M41.80 Other forms of scoliosis, site unspecified | CPT/HCPCS: 72110 ==

== ENCOUNTER 2021-03-15 14:47 | Outpatient (CLI) | payer OTHER, SELFPAY ==
--- NOTE | 2021-03-15 15:00 | USCV_ITS ---
Eber Fernandez Age: 65 Gender: M : 1955 Exam Date: 03/15/2021 15:10 Ordering Phys: Ariel Briseno MD (Andy) ([email or web address] [place] Technologist: Alejandra Vicente Exam Location: [facility] – [place] Indication: OCCLUSION OF CCA Risk Factors: Smoker Previous Vascular Surgery: Unknown Right Brachial BP: / Left Brachial BP: / Right Left Velocity (cm/s) Spectral Plaque Velocity (cm/s) Spectral Plaque Syst/Diast Broadening Syst/Diast Broadening 89.30/ 29.80 Prox CCA 52.60 / 19.10 68.40/ 23.20 Mid CCA 55.90 / 17.20 Hetro 58.40/ 20.90 Hetro Distal CCA 109.70/ 47.40 Hetro 51.30/ 20.20 Hetro Prox ICA 154.40/ 46.00 Hetro 52.80/ 27.20 Mid ICA 58.90 / 23.00 Hetro 56.10/ 20.70 Distal ICA 40.00 / 18.30 84.60 ECA 94.80 0.82 ICA/CCA 2.76 Antegrade Vertebral Antegrade 32.80/ 9.80 cm/s 33.50/ 12.60 cm/s Bi Subclavian Tri 43.90 135.2 0 FINDINGS Moderate to heavy heterogeneous plaques of the left bifurcation and proximal internal carotid artery. Mild to moderate scattered plaques of the right bifurcation and proximal internal carotid artery Intimal thickening in the common carotid arteries bilaterally. Antegrade flow in the vertebral arteries bilaterally. Normal Doppler flow velocities in the external carotid arteries bilaterally CONCLUSIONS Moderate to heavy heterogeneous plaques at the left bifurcation and proximal internal carotid artery with Doppler features, consistent with 50 to 69% stenosis. Mild to moderate scattered plaques of the right bifurcation and proximal internal carotid artery suggesting less than 50% stenosis. Intimal thickening in the common carotid arteries bilaterally. No previous studies are available for comparison. Dr Lyssa Roche MD [facility] (Electronically Signed) Final Date: 16 March 2021 14:01 S
== END 2021-03-15 14:48 | disposition home or self-care (01) ==
LOC: US 14:49
PROVIDERS: PCP Family Medicine; Visit Provider Thoracic Surgery (Cardiothoracic Vascular Surgery)
DX: R55 Syncope and collapse (principal); I65.23 Occlusion and stenosis of bilateral carotid arteries
CPT/HCPCS: 93880

== ENCOUNTER 2021-03-22 08:14 | Outpatient (CLI) | payer OTHER, SELFPAY ==
--- NOTE | 2021-03-22 08:30 | CT_ITS ---
WS: [id number] CT ANGIOGRAPHY OF THE ABDOMINAL AORTA WITH RUNOFF TO THE ANKLES HISTORY: I73.9 - Peripheral vascular disease, unspecified TECHNIQUE: Arterial injection is performed during imaging to evaluate the aorta and runoff vessels to the ankles. MIP and volume rendering imaging has also been performed. All images are reviewed. All C T scans at [facility] use at least one of these dose optimization techniques: automated ex posure control; mA and/or kV adjustment per patient size (includes targeted exams where dose is match ed to clinical indication); or iterative reconstruction. Contrast: Omnipaque 350; 95 mL IV. DLP: 2875.6 mGycm COMPARISON: 01/24/2021 Chronic emphysematous changes at the lung bases. Calcifications LEFT lower lung field. Heart size is normal. Small hiatal hernia. Abdominal aorta: Known abdominal aortic aneurysm extends over length of 7 cm. Maximum transverse diam eter 4.7 cm which is similar to the prior study. Large amount of progressive and increasing thrombus surrounding the patent lumen of the aorta. Circumferential thrombus is increased since 01/24/2021. Jus t above the bifurcation patent lumen is 7.5 mm. Several centimeters below the renal arteries transver se diameter of the patent lumen has decreased from 1.8 to 1.3 cm. RIGHT common and external iliac art felipe stent are occluded with thrombus. Similar to the prior study. There is reconstitution distal to t he stent to the common femoral artery over the acetabulum. Internal RIGHT iliac artery is occluded. L EFT common and external iliac arteries contain stents but are patent. Very mild narrowing distal to t he stent but no significant stenosis. RIGHT lower extremity arterial system: Small amount of calcified plaque in the common femoral artery. SFA and deep profunda are patent. Minimal calcified plaque in the popliteal artery. Small vessel run off to the ankle. Three-vessel runoff is present with the arteries are small caliber. LEFT lower extremity appears system: Calcified plaque and mild intimal thickening in the common femor al, superficial femoral and deep profunda. No high-grade occlusions. Popliteal artery is patent. Thre e-vessel runoff to the ankle is slightly better than on the RIGHT. Celiac axis and SMA are patent. Calcifications present in the proximal renal arteries but no high-gra de stenosis. Liver, spleen, pancreas, adrenals and RIGHT kidney are negative. Moderate atrophy lower pole LEFT kid yarely. Cortical thinning involving the lower pole with a small complex cyst or solid mass measuring 11 mm which is unchanged. This hypoechoic dense mass is been present since 09/16/2016 with no change. Mode rate-sized extrarenal pelvis on the LEFT. No adenopathy or ascites. No retroperitoneal hematoma. Mild prostate gland enlargement with central calcifications. CT/CT angio abd aorta runof [id number] IMPRESSION: 1. Patient has a known abdominal aortic aneurysm with a maximum transverse petar meter 4.7 cm which is unchanged since 01/24/2021. 2. Progressive circumferential abdominal aneurysm thrombus since the prior exa mination. Very small caliber patent lumen. Just above the bifurcation the lumen measures 7.5 mm. 3. Known occluded RIGHT common and external iliac artery stents with reconstit ution into the common femoral artery. 4. LEFT common iliac and external iliac artery stents are patent. 5. Small caliber but three-vessel runoff to the RIGHT ankle. Three-vessel runo ff to the LEFT ankle is more normal. 6. Focal cortical scar in the lower pole LEFT kidney. Notified Jareth Jefferson M.D at 03/22/2021 9:49 AM.
[2021-03-22] MEDS: iohexol 350 mg/mL 100 mL Btl IV (09:25)
== END 2021-03-22 08:15 | disposition home or self-care (01) ==
PROVIDERS: PCP Family Medicine; Visit Provider Internal Medicine
DX: I73.9 Peripheral vascular disease, unspecified (principal); I71.4 Abdominal aortic aneurysm, without rupture; I70.8 Atherosclerosis of other arteries
CPT/HCPCS: 75635; Q9967

== ENCOUNTER → 2021-05-04 09:13 | Outpatient (BNVA) | payer OTHER, SELFPAY | PROVIDERS: PCP Family Medicine; Referring Provider Internal Medicine; Visit Provider Internal Medicine | DX: Z20.822 Contact with and (suspected) exposure to COVID-19 (principal); I73.9 Peripheral vascular disease, unspecified; Z01.818 Encounter for other preprocedural examination | CPT/HCPCS: 80048; 85025; 85610; 87635 ==

== ENCOUNTER 2021-05-10 05:37 | Outpatient (CLI) | payer OTHER, SELFPAY ==
[2021-05-10] VITALS (34 sets, daily range): BP systolic 103–145; BP diastolic 74–101; PULSE 51–82; RESP 7–27; TEMP 36.4–36.6; O2SAT 94; BMI 23.7
--- NOTE | 2021-05-10 06:00 | XACV_ITS ---
Wt: 71 kg BSA: 1.85 m2 Any Known Allergies: No known allergies Gender: Male : 1955 Exam Type: Invasive Peripheral Vascular Procedure(s): Procedure Description: Peripheral Cath Diagnostic Procedure Procedure Description: Abdominal aortic angiography Procedure Description: Lower extremities' angiography Exam Priority: Routine Abdominal Diagnostic Findings Distal abdominal aorta: Aneurysmal. Lower Extremity Diagnostic Findings Right lower extremity: Three-vessel runoff to the foot on the right side. Occluded stent in right common iliac/external iliac artery.. Lower Extremity Interventional Findings Procedure detail: We obtained access in right popliteal artery. Glidewire and seeker support catheterwere advanced into iliac stents. However at origin of the right iliac artery, stent could not be crossed. There was slight extravasation noted after wire manipulation. At this time procedure was aborted as occluded stent segment could not be crossed. In order to confirm that there was no significant dissection or perforation, access was obtained in left common femoral artery. We used a UF catheter to perform abdominal angiogram that did not reveal any extravasation or significant dissection. Aneurysmal distal abdominal aorta was noted. Left common iliac stents were patent.. Conclusions Unsuccessful attempt at revascularization of the right lower extremity. Recommendations Patient will need surgical evaluation for bypass surgery. Outpatient cardiology follow up in 4 weeks. Continue medical therapy. Access Site Site: Right Popliteal Sheath Size: 6 Fr Hemost... Method: Suture Hemost... Success: Successful Site: Left Femoral artery Sheath Size: 5 Fr Hemost... Method: Manual Compression Hemost... Success: Successful Procedure Details Findings Procedure Consent Obtained. Admit Source: Out Patient. Pre-Procedure Time Out. Identified patient by full name and date of as verbalized by the patient/guarantor. Does the consent match the physician's order: Yes. Accurate & Complete Informed Consent: Yes. Inpatient/Outpatient History & Physical on Chart: Yes. If H&P is completed, is and addenduem needed: No; If yes, is the addendum complete: N/A. Visualize and Verify Site with Patient/Guarantor: N/A. Relevant Radiology Images available: N/A. Pre-op teaching completed and patient verbalized understanding. The risks, benefits, and alternatives of sedation and/or procedure were discussed by physician. The patient agrees to continue. Procedure started. Correct patient, site and procedure confirmed by cath team. Current diagnosis: Severe lifestyle limiting claudication/ pvd. PERRLA. Strong, equal hand contract associate manager bilaterally. Lungs clear x 5 lobes. IV Site on Arrival: 20 gauge in the left anticubital. IV Fluids: 0.9% NaCl at KVO. 0 mL infused prior to manager labor relations. Pre Procedural Pulses: bilateral radial was 3+. Pre Procedural Pulses: bilateral dorsalis pedis was Doppled. Pre Procedural Pulses: bilateral posterior tibial was Doppled. Oxygen started at 3liters/min via nasal canula. Right popliteal was prepped with chloroprep then draped in the usual sterile fashion. Physician notified. Baseline sample Acquired. HR: 70 BPM. Patient's family unavailable. Equipment: Peripheral. Cardiac Cath Pack. ACIST Manifold Kit Model BT 2000. Heparinized Saline (2 units/mL), 1000 mL bag. Physician arrived. Physician scrubbed in. Immediate Pre-Procedure Time Out. Correct Patient: Yes; Correct Procedure: Yes; Correct Site: Yes; Correct Patient Position: Yes; Correct Supplies: Yes; Dried Flammable Prep: Yes; Blood Products Available: N/A;. Lidocaine 1% infiltrated to the right popliteal. Lidocaine right popliteal. Arterial access obtained with micropuncture set. INVENTORY: 6FR GLIDESHEATH. Glidewire inserted through the sheath. Seated in the common femoral right. Seeker inserted over the glidewire. Glidewire removed. Hand injection performed. Glidewire inserted. Seeker advanced. Glidewire out. Hand injection performed. Glidewire inserted. Glidewire removed. Hand injection performed. Command wire inserted through the seeker. Command wire out. Glidewire inserted. Glidewire removed. Physician review of films. Hand injection performed. Glidewire and Seeker removed. Sheath(s) sutured into position with 2-0 silk and sterile 4x4's and Op-site applied over the site. No oozing or signs and symptoms of hematoma noted. Popliteal approach abandoned d/t no cross. Arterial sheath flushed and connected to tranducer and pressure bag with heparinized saline. Prepping patient for Femoral approach. DSA performed of the trifucation through the sheath at 10 ml/se for a total of 20 ml. left groin was prepped with chloroprep then draped in the usual sterile fashion. Physician scrubbed in. Lidocaine 1% infiltrated to the left groin. Arterial access obtained with micropuncture set. A Suture was successful obtaining hemostatsis at the Right Popliteal insertion site. A CORDIS 5F UF catheter 65cm was advanced over the wire and used for Abdominal aortogram. Abdominal aortogram performed in AP @ 10 mL/sec for a total of 30 mL. UF catheter out over the wire. Physican review of films. Physician scrubbed out. A Manual Compression was successful obtaining hemostatsis at the Left Femoral artery insertion site. Left femoral sheath(s) removed and manual pressure held until hemostasis was achieved. Sterile 4x4 and Op-site applied to the puncture site. No oozing or hematoma noted. Post sheath removal instructions were given and the patient verbalized understanding. Post Procedure: Pulses reassessed and unchanged. PERRLA. Strong, equal hand contract associate manager bilaterally. No VTE prophylaxis required. Post-op diagnosis: Occluded right common and external iliac stents. Medication's Wasted: Lidocaine 1% = 12 ml. Medication's Wasted: Heparin = 1000 units. Medication's Wasted: Versed = 1 mg. Total IV fluids: 121 ml. Fluoro: 16:05. Contrast type used: Visipaque 320 mgI/mL, 100 mL bottle. Visipaque 55 ml. Complications: None. Estimated blood loss: 5mL-10mL. Procedure completed. Patient transferred by bed to 1st floor. Vital chart was stopped. Procedure Medications Start: 8:08 AM Stop: 8:08 AM Medication: Versed Amount: 1 mg Route: I.V. Start: 8:08 AM Stop: 8:08 AM Medication: Fentanyl Amount: 50 mcg Route: I.V. Start: 8:11 AM Stop: 8:11 AM Medication: Versed Amount: 1 mg Route: I.V. Start: 8:22 AM Stop: 8:22 AM Medication: Versed Amount: 1 mg Route: I.V. Start: 8:22 AM Stop: 8:22 AM Medication: Fentanyl Amount: 50 mcg Route: I.V. Start: 9:17 AM Stop: 9:17 AM Medication: Versed Amount: 1 mg Route: I.V. Start: 9:05 AM Stop: 9:05 AM Medication: Versed Amount: 1 mg Route: I.V. I, the attending physician, have reviewed and verified all procedure medications. Yes, all medications given per verbal order History/Risk Factors Hypertension: Yes Dyslipidemia: Yes Peripheral Arterial Disease (PAD): Yes Myocardial Infarction (NE): Yes Obesity: No Renal Disease: No Prior Interventions PCI: Yes CABG: No Valve Surgery: No Report Signatures Finalized by Jareth Jefferson MD on 05/15/2021 10:55 PM
[2021-05-10] MEDS: diphenhydrAMINE 50 mg Capsule PO (06:49)
--- NOTE | 2021-05-10 07:50 | W.PM.OPSFHP ---
Same Day Surgery H&P Indication for Procedure/HPI DATE OF PROCEDURE: May 10, 2021 CHIEF COMPLAINT/INDICATIONFOR SURGICAL PROCEDURE: Life style limiting claudication PREOP DIAGNOSIS: Severe lifestyle limiting claudication PLANNED PROCEDRUE: Operation Date: 05/10/21 07:00 Proposed Procedures p Peripheral Diagnostic(Bilateral) - Jareth Jefferson M.D Possible peripheral intervention 65-year-old man with past medical history of coronary artery disease, smoking with COPD, dyslipidemia, polycythemia secondary to tobacco abuse, hypertension and a history of myocardial infarction. He has prior stents in the iliac arteries. He has been having lifestyle limiting severe claudication. Attempt at revascularization of right lower extremity was unsuccessful from left femoral artery access. Plan is to perform a intervention from right popliteal artery. ROS CONSTITUTIONAL: No fever chills weight loss or gain or night sweats. [] HEENT: Normocephalic, atraumatic.[] RESPIRATORY: No cough, sputum, hemoptysis or wheezing.[] CARDIOVASCULAR: No shortness of breath, chest pain, PND, orthopnea, lower extremity edema, presyncope or syncope. [] GI: no nausea vomiting diarrhea. [] DIRECTOR OF RETAIL ANALYTICS: No numbness, tingling, weakness or loss of function in any part of the body. [] MUSCULOSKELETAL: Severe right leg pain on exertion Medications/Allergies* Home Medications Medication Instructions Recorded Confirmed Type aspirin [Aspirin Low Dose] 81 mg PO DAILY 11/04/19 05/10/21 History cholecalciferol (vitamin D3) 1,000 unit PO DAILY 11/04/19 05/10/21 History [Vitamin D3] metoprolol tartrate 25 mg PO BID 11/04/19 05/09/21 History omeprazole 40 mg PO DAILY 11/04/19 05/10/21 History simvastatin 40 mg tablet 40 mg PO QAM 12/24/19 05/10/21 History trazodone 100 mg tablet 50 mg PO BEDTIME tab 07/19/20 05/10/21 History clopidogrel [Plavix] 75 mg PO DAILY 07/22/20 05/10/21 History multivitamin 1 tab PO DAILY 08/09/20 05/10/21 History naproxen sodium [Aleve] 220 mg PO BID 08/09/20 05/09/21 History albuterol sulfate 90 mcg/actuation 2 puff INHALATION Q6H PRN 02/21/21 05/10/21 History aerosol inhaler Allergies/Adverse Reactions Allergy/AdvReac Type Severity Reaction Status Date / Time No Known Allergies Allergy Verified 05/09/21 08:33 Current Medications: Generic Name Dose Route Start Last Admin Trade Name Donte PRN Reason Stop Dose Admin Sodium Chloride 1,000 mls @ 50 mls/hr 05/10/21 06:30 05/10/21 06:49 Sodium Chloride 0.9% IV 05/11/21 02:29 Not Given .Q20H ONE Pertinent History/Comorbid Conditions* Medical History (Updated 02/22/21 @ 21:35 by Hussain Orozco MD) ASHD (arteriosclerotic heart disease) Chronic back pain COPD (chronic obstructive pulmonary disease) Dyslipidemia HTN (hypertension) 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, 2011 S/P bronchoscopy with biopsy S/P insertion of iliac artery stent Family History (Updated 09/20/20 @ 13:08 by LISA Montero) Denies family history of Anesthesia complication Bleeding disorder Social History Smoking and tobacco status: former smoker Quit status (tobacco): has quit using tobacco Year quit tobacco: Jul 2020 [id number] Second hand smoke exposure: No Smoking risk assessment/counseling performed?: Yes Alcohol intake: never Caregiver/support person: Yes Lives independently: Yes Household members: none Marital status: Single service: Yes branch: [employer] Current occupational status: retired Pets and animals: Yes History of recent travel: No Current gender identity: Male Pertinent Exam Findings alert, oriented x 3, clear to auscultation bilaterally and regular rate & rhythm Conscious Sedation Assessment PATIENT ASSESSED PRIOR TO SEDATION, WITH NO CHANGE NOTED: Yes AIRWAY EVAL/ANESTHESIA PLAN: normal airway, see other exam findings, ASA III, Monitored Anesthesia, Local Anesthesia, Risks, benefits & alternatives of sedation and/or procedure discussed and Patient agrees to continue as planned Recommendations Surgery/Procedure today (Peripheral angiogram with possible intervention) Coding Level of Care Code Acute Stationary Engineer Refrigeration for Malu Galvin
--- NOTE | 2021-05-10 16:45 | PC.NURSE ---
Discharge Note Patient discharged to Home via private vehicle accompanied by family. Discharge instructions reviewed with patient and/or banking representative. Mobile pharmacy medications and/or prescriptions provided. Belongings/home medications returned.
== END 2021-05-10 16:44 | disposition home or self-care (01) ==
LOC: CCL 05:39 → CSU 14:49
PROVIDERS: PCP Family Medicine; Visit Provider Internal Medicine
DX: I70.201 Unspecified atherosclerosis of native arteries of extremities, right leg (principal); I10 Essential (primary) hypertension; E78.5 Hyperlipidemia, unspecified; I25.2 Old myocardial infarction; I25.10 Atherosclerotic heart disease of native coronary artery without angina pectoris; J44.9 Chronic obstructive pulmonary disease, unspecified; F17.210 Nicotine dependence, cigarettes, uncomplicated; Z95.820 Peripheral vascular angioplasty status with implants and grafts; Z79.82 Long term (current) use of aspirin
CPT/HCPCS: 36415; 75625; C1769; C1887; C1894; J1644; J2250; J3010; J7030; Q0163; Q9967

== ENCOUNTER 2021-06-22 08:26 | Outpatient (CLI) | payer OTHER, SELFPAY ==
--- NOTE | 2021-06-22 08:29 | CT_ITS ---
WS: [id number] CT LUMBAR SPINE TECHNIQUE: Contrast-enhanced CT of the lumbar spine with coronal and sagittal reformatted images. CLINICAL INFORMATION: M51.16 - Intervertebral disc disorders with radiculopathy... COMPARISON: MRI and CT March 20, 2019 DLP: 2096.[address] scans at [facility] use at least one of these dose optimization techniques: automated e xposure control; mA and/or kV adjustment per patient size (includes targeted exams where dose is matc hed to clinical indication); or iterative reconstruction. FINDINGS: Fluoroscopy images demonstrate bilateral iliac stents. Lumbar scoliosis convex left. Moderate spondyl itic changes. Aortic calcification. Aneurysmal calcified abdominal aorta measuring 4 to 5 cm. Disc sp duane narrowing throughout the lumbar spine with slight retrolisthesis L2 on L3, L3 on L4, and L4 on L5 . Vacuum disc phenomenon at L2-3 and L3-4. Anterior hypertrophic changes. No instability on flexion-e xtension. L1-L2: Mild disc osteophyte complex with endplate ridging. Shallow central protrusion. Foramen are pa tent. Mild central canal stenosis. L2-L3: Disc desiccation. Mild annular bulging. Slight narrowing of the right subarticular recess. Mod erate right foraminal narrowing. Left foramen is patent. L3-L4: Vacuum disc phenomenon. Mild disc bulging with mild to moderate central canal stenosis with fa cet arthropathy and ligament flavum hypertrophy. Narrowing of the subarticular recess bilaterally. Mo derate right greater than left foraminal narrowing. L4-L5: Mild disc bulging with moderate central canal stenosis. Impingement left subarticular recess a nd traversing left L5 nerve root. Mild facet arthropathy. Moderate left greater than right foraminal narrowing. Mild facet arthropathy. Ligament flavum hypertrophy. L5-S1: Mild disc bulging with slight effacement of the ventral thecal sac. Slight contact of the teresa ersing S1 nerve root with a shallow central protrusion. Spinal canal is patent. Mild facet arthropath y. Mild to moderate bilateral foraminal narrowing. Mild facet arthropathy. Degenerative disc disease has progressed since the prior MRI at L2-3 and L3-4 with increased disc daniel iccation. Central canal stenosis L4-5 appears progressed with increased impingement on the left great er than right articular recess. Increased left subarticular protrusion at this level. CT/CT lumbar spine w con [id number] IMPRESSION: 1. Lumbar curve convex left. No instability on flexion-extension. 2. Mild central canal stenosis L1-2, L2-3, L3-4. Moderate central canal stenos is L4-5. 3. Impingement of the left subarticular recess L4-5 with moderate left greater than right foraminal narrowing. Recommend correlation for left L4 and L5 nerve root symptoms. 4. Moderate right L2-3 foraminal narrowing. 5. Moderate L3-4 foraminal narrowing impinges the exiting L3 nerve roots righ t greater than left. Recommend correlation for L3 nerve root symptoms. 6. Shallow central protrusion L5-S1 slightly contacts the traversing S1 nerve roots bilaterally. Mild to moderate bilateral L5-S1 foraminal narrowing. 7. Bilateral iliac stents. 8. Partially visualized 4 to 5 cm abdominal aortic aneurysm. This can be follo wed up with CTA. This appears similar to March 22, 2021 but only partially visua lized today
--- NOTE | 2021-06-22 08:29 | IR_ITS ---
WS: [id number] MYELOGRAM LUMBAR SPINE Fluoroscopic guided lumbar myelogram CLINICAL INFORMATION: M48.061 - Spinal stenosis, lumbar region without neurogen... COMPARISON: None. TECHNIQUE: The procedure, including risks, benefits, and complications, were discussed with the patie nt who agreed to proceed. A timeout was performed to confirm correct patient, procedure, and site. Using sterile technique, the patient was prepped and draped in the usual sterile fashion. After admin istration of local anesthesia using 1% preservative-free lidocaine and using fluoroscopic guidance, a 22-gauge spinal needle was advanced into the subarachnoid space at the L5-S1 level. Subsequently 13 cc of Omnipaque 240 was administered into the thecal sac. The needle was removed and hemostasis was a chieved. Spot fluoroscopic images were obtained. FLUOROSCOPIC TIME: 2.[address] myelogram report for additional detail. IR/IR myelogram sp lumbar [id number] IMPRESSION: Uncomplicated lumbar myelogram.Please see CT myelogram report for additional de tail.
[2021-06-22] MEDS: iohexol 240 mg/mL 50 mL Btl INTRATHECA (09:39)
== END 2021-06-22 08:27 | disposition home or self-care (01) ==
PROVIDERS: PCP Family Medicine; Visit Provider Orthopaedic Surgery
DX: M48.061 Spinal stenosis, lumbar region without neurogenic claudication (principal); M51.16 Intervertebral disc disorders with radiculopathy, lumbar region; M47.816 Spondylosis without myelopathy or radiculopathy, lumbar region; M43.9 Deforming dorsopathy, unspecified; M48.00 Spinal stenosis, site unspecified; Z95.828 Presence of other vascular implants and grafts; I71.4 Abdominal aortic aneurysm, without rupture
CPT/HCPCS: 62304; 72120; 72132; 85610; Q9966

== ENCOUNTER → 2021-12-08 13:12 | Outpatient (BNVA) | payer OTHER, SELFPAY | PROVIDERS: PCP Family Medicine; Visit Provider Internal Medicine Cardiovascular Disease | DX: I73.9 Peripheral vascular disease, unspecified (principal); Z87.891 Personal history of nicotine dependence; I71.4 Abdominal aortic aneurysm, without rupture | CPT/HCPCS: 99215 ==

== ENCOUNTER → 2022-01-05 12:48 | Outpatient (BNVA) | payer OTHER, SELFPAY | PROVIDERS: PCP Family Medicine; Visit Provider Thoracic Surgery (Cardiothoracic Vascular Surgery) | DX: I71.4 Abdominal aortic aneurysm, without rupture (principal); F17.210 Nicotine dependence, cigarettes, uncomplicated | CPT/HCPCS: 99213 ==

== ENCOUNTER → 2022-01-31 14:20 | Outpatient (BNVA) | payer OTHER, SELFPAY | PROVIDERS: PCP Family Medicine; Visit Provider Internal Medicine | DX: R76.8 Other specified abnormal immunological findings in serum (principal); B18.2 Chronic viral hepatitis C; Z11.59 Encounter for screening for other viral diseases; R91.8 Other nonspecific abnormal finding of lung field; I71.4 Abdominal aortic aneurysm, without rupture; Z91.89 Other specified personal risk factors, not elsewhere classified; I73.9 Peripheral vascular disease, unspecified; Z98.61 Coronary angioplasty status; Z95.828 Presence of other vascular implants and grafts; M48.062 Spinal stenosis, lumbar region with neurogenic claudication; Z12.2 Encounter for screening for malignant neoplasm of respiratory organs | CPT/HCPCS: 82105; 86705; 86706; 87340; 87522; 87902 ==

== ENCOUNTER 2022-02-21 14:35 | Outpatient (CLI) | payer OTHER, SELFPAY ==
--- NOTE | 2022-02-21 15:00 | CT_ITS ---
WS: [id number] CT ANGIOGRAPHY abdomen and pelvis. HISTORY: AAA TECHNIQUE: CT angiogram is performed during IV injection. Reformation images reviewed. MIP imaging. A ll CT scans at [facility] use at least one of these dose optimization techniques: automated ex posure control; mA and/or kV adjustment per patient size (includes targeted exams where dose is match ed to clinical indication); or iterative reconstruction. CONTRAST: Omnipaque 350; 95 mL IV. DLP: 917.07 mGy.cm COMPARISON: 03/22/2021 Very minimal unchanged groundglass attenuation at the LEFT lung base. No pulmonary mass or nodule. He art size is normal. No pericardial effusion. Small hiatal hernia. Abdominal aorta: Large fusiform abdominal aortic aneurysm is reidentified. Maximum diameter of 4.8 cm is unchanged. There is a large amount of circumferential thrombus which slightly asymmetric to the L EFT. Largest diameter of the thrombus is 2.1 cm. The central patent lumen is small caliber measuring 8 mm diameter. Aneurysm tapers to the bifurcation. At the bifurcation there is a RIGHT occluded commo n iliac artery stent. The external iliac artery is also occluded with reconstitution of the femoral a rtery. Very similar to the study from 03/22/2021. LEFT common iliac arteries patent with mild atherosc lerosis. Proximal LEFT internal iliac is occluded but reconstituted. Mild atherosclerotic plaque in t he external iliac artery. There is mild stenosis involving the origin of the celiac axis and SMA. Mild atherosclerotic plaque i nvolving the proximal renal arteries. Normal RIGHT renal enhancement. Moderate cortical thinning with decreased enhancement and with a few small cortical cysts involving the lower pole LEFT kidney. Larg e LEFT extrarenal pelvis. Findings similar to prior studies. Mild hepatic steatosis. Normal size spleen. Normal pancreas. Normal gallbladder and adrenal glands. N o ascites or adenopathy. Visualized GI tract is negative. There is no obstruction. Appendix is normal . Well-distended urinary bladder appears very mild wall thickening of the bladder probably due to outle t obstruction. The prostate gland is minimally encroaching into the base of the bladder. Inguinal can als are patent bilaterally containing fat only. Moderate to severe degenerative spondylitic changes throughout the lumbar spine with degenerative LEF T curvature and scoliosis. Asymmetric disc space narrowing with multilevel areas of central and hannah inal stenosis. CT/CT angio abdomen pelvis [id number] IMPRESSION: 1. Large stable fusiform abdominal aortic aneurysm with a maximum diameter 4.8 cm. No change since 01/24/2021. 2. Large amount of circumferential thrombus within the aneurysm with narrowing of the lumen to 8 mm. Very similar to the prior study. 3. Known occluded RIGHT common and external iliac artery stents. 4. Mild stenosis involving the proximal celiac axis and SMA and renal arteries . 5. Cortical thinning with decreased enhancement and small cysts lower pole LEF T kidney.
[2022-02-21 15:37] LABS: Blood Urea Nitrogen 17 mg/dL (8-23); Glomerular Filtration Rate 96.1 mL/min (90-130)
[2022-02-21] MEDS: iohexol 350 mg/mL 100 mL Btl IV (15:52)
== END 2022-02-21 14:36 | disposition home or self-care (01) ==
LOC: RAD 14:37
PROVIDERS: PCP Family Medicine; Visit Provider Thoracic Surgery (Cardiothoracic Vascular Surgery)
DX: I71.4 Abdominal aortic aneurysm, without rupture (principal)
CPT/HCPCS: 74174; 82565; 84520

== ENCOUNTER → 2022-03-09 14:12 | Outpatient (BNVA) | payer OTHER, SELFPAY | PROVIDERS: PCP Family Medicine; Visit Provider Thoracic Surgery (Cardiothoracic Vascular Surgery) | DX: I71.4 Abdominal aortic aneurysm, without rupture (principal) | CPT/HCPCS: 99213 ==

== ENCOUNTER → 2022-03-31 10:34 | Outpatient (BNVA) | payer MEDICARE, OTHER, SELFPAY | PROVIDERS: PCP Family Medicine; Visit Provider Internal Medicine | DX: B19.20 Unspecified viral hepatitis C without hepatic coma (principal) | CPT/HCPCS: 87522 ==

== ENCOUNTER 2022-10-25 12:31 | Emergency (ER) | payer OTHER, SELFPAY ==
[2022-10-25] VITALS (8 sets, daily range): BP systolic 126–158; BP diastolic 87–97; PULSE 63–72; RESP 15–28; TEMP 37.1; O2SAT 90–98
--- NOTE | 2022-10-25 12:33 | W.ED.ABDPA2 ---
HPI - Abdominal Pain General: Chief Complaint: Abdominal Pain Stated Complaint: right flank pain Time Seen by Provider: 10/25/22 12:33 History of Present Illness: Mr. Fernandez is a 66-year-old gentleman with a peripheral arterial disease and known aortic aneurysm status postrepair presenting to the emergency department for right lower quadrant pain. He reports intermittent pain essentially since his operative repair in September however worse over the past few days. Aching and cramping in nature. Moderate to severe intensity. Denies peripheral sensory changes. No other specific changes in health, exacerbating, or alleviating factors identified. 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 Migrated esophageal stent removed endoscopically 10/13/20 Myocardial infarction Peripheral arterial disease Polycythemia Thoracic aortic aneurysm Tracheoesophageal fistula Surgical History H/O esophagogastroduodenoscopy (10/13/20) for removal of migrated esophageal stent History of coronary angioplasty History of lumbar discectomy [facility], 2011 S/P bronchoscopy with biopsy S/P insertion of iliac artery stent Family History Denies family history of Anesthesia complication Bleeding disorder Social History Smoking and tobacco status: current every day smoker cigarettes Packs smoked per day: 0.75 Years cigarettes smoked: 50 Second hand smoke exposure: No Smoking risk assessment/counseling performed?: Yes Alcohol intake: never Caregiver/support person: Yes Lives independently: Yes Household members: none Marital status: Single service: Yes branch: [employer] Current occupational status: retired Pets and animals: Yes History of recent travel: No Current gender identity: Male Physical Exam Const: COMMON NORMALS: alert GENERAL APPEARANCE: cooperative and well developed HENMT: COMMON NORMALS: normocephalic and atraumatic HEAD & SCALP: normocephalic and atraumatic Eye: COMMON NORMALS: conjunctivae normal CONJUNCTIVA: Yes conjunctivae normal SCLERA: sclerae normal Neck/C-Spine: COMMON NORMALS: supple GENERAL: Yes trachea midline Resp: COMMON NORMALS: clear to auscultation bilaterally EFFORT & INSPECTION: Yes able to speak in complete sentences AUSCULTATION: clear to auscultation bilaterally Cardio: COMMON NORMALS: regular rate and regular rhythm RATE: regular rate RHYTHM: regular rhythm GI: COMMON NORMALS: Soft to palpation PALPATION: Yes Soft to palpation, Yes Tenderness to palpation present (GI), No Guarding due to palpation present (GI) and No Rigid due to palpation Extremity: NARRATIVE EXTREMITY EXAM: DP/PT intact bilateral GENERAL: Yes normal exam except as noted and No edema Neuro: COMMON NORMALS: moves all extremities SENSORIUM/ORIENTATION: Yes alert and No Orientation impaired Psych: COMMON NORMALS: mental status grossly normal and Normal thought process present THOUGHT PROCESS: Normal thought process present Course Vital Signs: Vital signs: Vital Signs Temperature 98.7 F 10/25/22 12:41 Pulse Rate 63 10/25/22 16:00 Respiratory Rate 15 10/25/22 16:00 Blood Pressure 126/87 10/25/22 16:15 Pulse Oximetry 95 10/25/22 16:15 Oxygen Delivery Me thod 10/25/22 12:41 MDM - Abdominal Pain Medical Decision Making 66-year-old gentleman with complex vascular surgery repair presenting with right lower quadrant abdominal tenderness to palpation. There is no evidence of acute surgical abdomen and patient is nontoxic in appearance. Extremities are warm and well-perfused. Labs with no significant hematologic or metabolic abnormality to explain symptoms, no evidence of UTI. Vascular abdominal imaging with runoff performed. The prior surgical repairs appear without leaking, there is a small amount of thrombus in the femoral or femoral bypass graft and bilateral inferior kidney ischemic changes. Discussed with patient. I discussed these results with the patient's vascular surgeon Dr. Ramirez, no indication for transfer or initiation of systemic anticoagulation at this time. Patient appropriate for outpatient follow-up. Patient's symptoms controlled with analgesia, antiemetic, GI cocktail. Most likely etiology of patient's symptoms is unclear, unspecified abdominal pain. The results of ED evaluation were discussed with the patient including prescriptions and/or symptomatic cares (if applicable) including appropriate and responsible use, followup plan, and return precautions. The patient verbalized understanding and felt safe for discharge. Medical Records I reviewed the patient's medical records. Lab Data I reviewed the patient's lab results. 10/25/22 12:15 10/25/22 12:15 Labs/Radiology: Radiology Impressions Aorta w/Runoff CTA 10/25/22 13:18 IMPRESSION: 1. Status post graft repair of the abdominal aortic aneurysm. No increase in size of the [place] aneurysm. 2. Known occluded RIGHT common and external iliac artery stents. 3. Femorofemoral bypass graft is patent. There is a small amount of thrombus in the femorofemoral bypass graft extending towards the RIGHT. No occlusion of the graft at this time. 4. New ischemic changes lower pole of each kidney. New since 02/21/2022. 5. Very small caliber and nearly occluded distal RIGHT popliteal artery with numerous collaterals. 6. Small caliber three-vessel runoff to the ankles. Laboratory Results WBC 7.4 10^3/uL (4.0-10.0) 10/25/22 12:15 RBC 4.95 10^6/uL (4.1-5.3) 10/25/22 12:15 Hgb 14.7 g/dL (11.7-16.6) 10/25/22 12:15 Hct 44.4 % (42.0-52.0) 10/25/22 12:15 MCV 89.7 fl (80-94) 10/25/22 12:15 MCH 29.7 pg (28.0-34.0) 10/25/22 12:15 MCHC 33.1 g/dL (30.0-36.0) 10/25/22 12:15 RDW 13.2 % (12.1-15.1) 10/25/22 12:15 Plt Count 181 10^3/cmm (130-400) 10/25/22 12:15 MPV 10.0 fL (7.4-10.4) 10/25/22 12:15 Neut % (Auto) 56.1 % 10/25/22 12:15 Lymph % (Auto) 27.9 % 10/25/22 12:15 Parmer % (Auto) 12.8 % 10/25/22 12:15 Eos % (Auto) 1.9 % 10/25/22 12:15 Baso % (Auto) 0.9 % 10/25/22 12:15 Neut # (Auto) 4.16 10^3/uL (1.8-7.7) 10/25/22 12:15 Lymph # (Auto) 2.1 10^3/uL (0.8-4.8) 10/25/22 12:15 Parmer # (Auto) 1.0 10^3/uL (0.2-0.9) H 10/25/22 12:15 Eos # (Auto) 0.1 10^3/uL (0.0-0.8) 10/25/22 12:15 Baso # (Auto) 0.1 10^3/uL (0.0-0.1) 10/25/22 12:15 Nucleated RBC % (auto) 0 % 10/25/22 12:15 Nucleated RBCs # 0.0 /100WBC 10/25/22 12:15 Sodium 138 mmol/L (136-145) 10/25/22 12:15 Potassium 3.7 mmol/L (3.5-5.1) 10/25/22 12:15 Chloride 102 mmol/L (98-107) 10/25/22 12:15 Carbon Dioxide 22 mmol/L (22-29) 10/25/22 12:15 Anion Gap 17.7 (5-19) 10/25/22 12:15 BUN 11 mg/dL (8-23) 10/25/22 12:15 Creatinine 0.9 mg/dL (0.7-1.2) 10/25/22 12:15 GFR Calculation 83.9 mL/min (90-130) L 10/25/22 12:15 Glucose 95 mg/dL (65-115) 10/25/22 12:15 Calculated Osmolality 285 mOsm/kg (285-295) 10/25/22 12:15 Lactic Acid 1.5 mmol/L (0.5-2.2) 10/25/22 13:05 Calcium 8.9 mg/dL (8.5-10.5) 10/25/22 12:15 Total Bilirubin 0.2 mg/dL (0.15-1.2) 10/25/22 12:15 AST 11 U/L (0-40) 10/25/22 12:15 ALT < 5 U/L (0-41) 10/25/22 12:15 Alkaline Phosphatase 96 U/L (40-130) 10/25/22 12:15 Total Protein 7.4 g/dL (6.6-8.7) 10/25/22 12:15 Albumin 3.6 g/dL (3.5-5.2) 10/25/22 12:15 Globulin 3.8 g/dL (1.3-4.6) 10/25/22 12:15 Lipase 20 U/L (13-60) 10/25/22 12:15 Urine Color Yellow (Yellow) 10/25/22: Urine Appearance Clear (CLEAR) 10/25/22: Urine pH 8 (5-7) H 10/25/22: Ur Specific [place] 1.005 (1.005-1.030) 10/25/22 Urine Protein Trace (Negative) 10/25/22: Urine Glucose (UA) Norm (Normal) 10/25/22: Urine Ketones 1+ (Negative) H 10/25/22: Urine Blood Trace (Negative) H 10/25/22: Urine Nitrate Negative (Negative) 10/25/22: Urine Bilirubin Neg (Negative) 10/25/22 Prot Sulfosalicylic Acd Negative (Negative) 10/25/22 Urine Urobilinogen Norm mg/dL (Negative) 10/25/22 Ur Leukocyte Esterase Negative (Negative) 10/25/22: Urine RBC 0-4 /hpf (0-2) H 10/25/22: Urine WBC None /hpf (0-5) 10/25/22: Ur Squamous Epith Cells 0-4 /hpf (0-5) H 10/25/22: Amorphous Sediment Not Reportable 10/25/22: Urine Bacteria Trace /hpf (NONE) 10/25/22: Urine Mucus Trace /hpf 10/25/22:23 Discharge Plan Discharge Patient Disposition: Home Clinical Impression: Abdominal pain Condition: Stable Prescriptions: New oxycodone 5 mg tablet 5 mg PO Q4H PRN (Reason: pain) Qty: 10 0RF Miralax 17 gram powder in packet 17 g PO DAILY Qty: 14 0RF Rx Instructions: while taking opioids No Action simvastatin 40 mg tablet 20 mg PO QPM gabapentin 300 mg capsule 300 mg PO .UP TO TID trazodone 100 mg tablet 50 mg PO BEDTIME Asmanex HFA 200 mcg/actuation HFA aerosol inhaler 1 inh inhalation BID clopidogrel [Plavix] 75 mg Tablet 75 mg PO QAM Hold Instructions: Resume on 10/15/20. naproxen sodium [Aleve] 220 mg tablet 220 mg PO BID PRN (Reason: Pain) omeprazole 40 mg Capsule,Delayed Release(Dr/Ec) 40 mg PO QAM Hold Instructions: Resume on 10/28/20. metoprolol succinate 50 mg Tablet Extended Release 24 Hr 50 mg PO DAILY PRN (Reason: Blood Pressure) Aspir-81 81 mg Tablet,Delayed Release (Dr/Ec) 81 mg PO QAM Colace 100 mg Capsule 100 mg PO BID PRN (Reason: Constipation) ProAir HFA 90 mcg/actuation Hfa Aerosol Inhaler 2 puff INHALATION Q6H PRN (Reason: Shortness Of Breath) Incruse Ellipta 62.5 mcg/actuation Blister With Device 1 inh INHALATION DAILY Discharge Orders: Discharge ED (Routine); Ordered 10/25/22 Ordered By: Alan Lara Referrals: Radha Mazariegos MD [Primary Care Provider] - Discharge Diet: Usual diet Discharge Activity: Limit activity as instructed Patient Instructions: Abdominal Pain (ED), Opioid Safety Activity Restrictions/Additional Instructions: Thank you for visiting the emergency department. You were seen and evaluated for abdominal pain. The exact cause of your pain is unclear. I reviewed imaging with Dr. Ramirez and outpatient management is appropriate. Please continue all previous restrictions and medications. Please follow-up with vascular surgery. Return to the emergency department for any new neurologic or vascular changes, uncontrolled pain, or anything else that you are concerned about and feel needs emergency department evaluation. Coding Level of Care Code ED Press Shop Supervisor for Malu Galvin
[2022-10-25 12:56] LABS: Basophils # 0.1 10^3/uL (0.0-0.1); Basophils % 0.9 %; Eosinophils # 0.1 10^3/uL (0.0-0.8); Eosinophils % 1.9 %; Hematocrit 44.4 % (42.0-52.0); Hemoglobin 14.7 g/dL (11.7-16.6); Lymphocytes # 2.1 10^3/uL (0.8-4.8); Lymphocytes % 27.9 %; Mean Corpuscular HGB Conc 33.1 g/dL (30.0-36.0); Mean Corpuscular Hemoglobin 29.7 pg (28.0-34.0); Mean Corpuscular Volume 89.7 fl (80-94); Monocytes % 12.8 %; Neutrophils # 4.16 10^3/uL (1.8-7.7); Neutrophils % 56.1 %; Nucleated Red Blood Cells % 0 %; Platelet Count 181 10^3/cmm (130-400); Red Blood Count 4.95 10^6/uL (4.1-5.3); Red Cell Distribution Width 13.2 % (12.1-15.1); White Blood Count 7.4 10^3/uL (4.0-10.0)
[2022-10-25] MEDS: morphine 4 mg/mL SDV 1 mL IVP (12:57)
[2022-10-25] MEDS: ondansetron 2 mg/ML SDV 2 mL 4 MG IVP (12:57)
[2022-10-25 13:14] LABS: Alanine Aminotransferase < 5 U/L (0-41); Albumin Level 3.6 g/dL (3.5-5.2); Alkaline Phosphatase 96 U/L (40-130); Anion Gap 17.7 (5-19); Aspartate Amino Transferase 11 U/L (0-40); Blood Urea Nitrogen 11 mg/dL (8-23); Calcium 8.9 mg/dL (8.5-10.5); Carbon Dioxide 22 mmol/L (22-29); Chloride 102 mmol/L (98-107); Globulin 3.8 g/dL (1.3-4.6); Glomerular Filtration Rate 83.9 mL/min (90-130); Glucose 95 mg/dL (65-115); Lipase 20 U/L (13-60); Osmolality Calculated 285 mOsm/kg (285-295); Potassium 3.7 mmol/L (3.5-5.1); Sodium 138 mmol/L (136-145); Total Bilirubin 0.2 mg/dL (0.15-1.2); Total Protein 7.4 g/dL (6.6-8.7)
--- NOTE | 2022-10-25 13:18 | CT_ITS ---
WS: [id number] CT ANGIOGRAPHY OF THE ABDOMINAL AORTA WITH RUNOFF TO THE ANKLES HISTORY: post AAA repair, increasing abd pain/RLQ/suprapubic TECHNIQUE: Arterial injection is performed during imaging to evaluate the aorta and runoff vessels to the ankles. MIP and volume rendering imaging has also been performed. All images are reviewed. All C T scans at [facility] use at least one of these dose optimization techniques: automated exposu re control; mA and/or kV adjustment per patient size (includes targeted exams where dose is matched t o clinical indication); or iterative reconstruction. Contrast: Omnipaque 350; 100 mL IV. DLP: 10.05 mGy.cm COMPARISON: 02/21/2022, 03/22/2021 Very mild tree-in-bud airspace disease at the lung bases unchanged since 02/21/2022. Mild atelectasis along the RIGHT major fissure. Tricuspid regurgitation into hepatic veins. Abdominal aorta: Status post abdominal aortic stent graft abdominal aorta. Graft begins at the level of the celiac axis with bilateral iliac artery stents. Known occluded RIGHT common iliac artery stent . LEFT iliac artery stent is intact. No increase in size of the [place] aneurysm with a maximum diamet er 5.0 cm. Mild narrowing of the celiac axis. SMA is patent. Bilateral renal artery stents are patent . New bilateral areas of nonvascularization involving the lower poles of each kidney. Femorofemoral bypass graft is new since the prior exam. There is a very tiny amount of soft tissue in the bypass graft beginning in the midline extending towards the RIGHT. No occlusion. Postoperative c hanges at the groin bilaterally. There is no extravasation of contrast. No abscess. Superficial femoral arteries are small caliber mild diffuse atherosclerotic plaque. 50% stenosis begi nning in the distal SFA bilaterally. Distal Binu's canal and the popliteal arteries normal proximally. Very tiny RIGHT popliteal artery with multiple adjacent collaterals. Numerous collaterals involving the distal RIGHT popliteal artery with occlusion distally at the level of the fibular head. Vessels reconstitute with very small but pa tent three-vessel runoff to the ankle. LEFT popliteal artery is not occluded. Normal three-vessel run off to the ankle. Normal early enhancement of the liver, spleen and pancreas. Gallbladder is negative. No adrenal mass. No ischemic changes in the GI tract. No free air is ascites. Fat-containing umbilical hernia. CT/CT angio abd aorta runof 35088 IMPRESSION: 1. Status post graft repair of the abdominal aortic aneurysm. No increase in s ize of the [place] aneurysm. 2. Known occluded RIGHT common and external iliac artery stents. 3. Femorofemoral bypass graft is patent. There is a small amount of thrombus i n the femorofemoral bypass graft extending towards the RIGHT. No occlusion of t he graft at this time. 4. New ischemic changes lower pole of each kidney. New since 02/21/2022. 5. Very small caliber and nearly occluded distal RIGHT popliteal artery with n umerous collaterals. 6. Small caliber three-vessel runoff to the ankles.
[2022-10-25 13:28] LABS: Lactic Sepsis W/Reflex 1.5 mmol/L (0.5-2.2)
--- NOTE | 2022-10-25 14:34 | PC.PHAR ---
pt states he takes care of his own medications-pt states he takes metoprolol succ er 50mg daily prn rx written 09/28/22 for 50mg daily-pt states he finished his epclusa about 4-5 months ago medication [facility]-pt states he takes zocor 20mg qpm medication not on va med list-norco 5/325mg q4h prn max 6 tabs per day on [facility] med [facility] pt states he has no pain meds states after his surgery he got tylenol #3 in the mail a week after his surgery and states he no longer has or takes-notes are made in the pharmacy comments
[2022-10-25] MEDS: lidocaine 2% viscous 15 ML, aluminum-mag hydrox-simethicon 30 ML, sucralfate oral liq 1 GM PO (15:21)
[2022-10-25] MEDS: iohexol 350 mg/mL 500 mL Btl (per mL) IV (15:29)
[2022-10-25 16:39] LABS: Add Urine Microscopic? YES; Bilirubin Urine Neg (Negative); Blood Urine Trace (Negative); Glucose Urine UA Norm (Normal); Ketones Urine 1+ (Negative); Leukocyte Esterase Urine Negative (Negative); Nitrate Urine Negative (Negative); Protein Urine Trace (Negative); RBC Urine 0-4 /hpf (0-2); Specific Gravity, Urine 1.005 (1.005-1.030); Urine Appearance Clear (CLEAR); Urine Color Yellow (Yellow); Urobilinogen Urine Norm (Negative); pH Urine 8 (5-7)
[2022-10-25 16:40] LABS: Add Urine Culture? No; Bacteria Urine TRACE /hpf; Mucus Urine TRACE /hpf; Squamous Epithelial Cell Urine 0-4 /hpf (0-5)
[2022-10-25 16:42] LABS: Sulfosalicylic Acid Urine Negative (Negative)
== END 2022-10-25 16:22 | disposition home or self-care (01) ==
PROVIDERS: Emergency Provider Emergency Medicine; PCP Family Medicine
DX: R10.31 Right lower quadrant pain (principal); R93.6 Abnormal findings on diagnostic imaging of limbs; Z98.890 Other specified postprocedural states
CPT/HCPCS: 75635; 80053; 81001; 83605; 83690; 85025; 96374; 96375; 99285; J2270; J2405; Q9967

== ENCOUNTER 2023-06-29 11:09 | Outpatient (CLI) | payer OTHER, SELFPAY ==
--- NOTE | 2023-06-29 11:36 | IR_ITS ---
WS: [id number] LUMBAR MYELOGRAM HISTORY: LUMBAR RADICULOPATHY COMPARISON: 06/22/2021 FLUOROSCOPY TIME: 4min [id number] # of spot films: 4.6 minutes Procedure, risks and complications were explained to the patient. Risks including bleeding, infection , headaches, allergic reaction and seizures. Consent has been obtained. With the patient in prone position the skin over the lumbar region is cleansed with ChloraPrep and an esthetized with lidocaine. Subarachnoid space was not accessed. Multiple levels were attempted withou t success. There are calcifications and obstruction of the subarticular recess. The third attempted location patient complained of leg numbness. He could not feel his legs. At that time the study was terminated. At no time was the thecal sac breached. Patient was moved onto the stretcher. After approximately 5 minutes patient is baseline status return ed to his legs. IMPRESSION: 1. Unsuccessful attempt at a lumbar myelogram. After several attempted levels patient experienced leg numbness and weakness. Study was terminated at that time. 2. Patient return to normal baseline status after 5 minutes on the stretcher.
== END 2023-06-29 11:10 | disposition home or self-care (01) ==
LOC: RAD 11:10
PROVIDERS: PCP Family Medicine; Visit Provider Family Medicine
DX: M54.16 Radiculopathy, lumbar region (principal)
CPT/HCPCS: 62304; Q9966

== ENCOUNTER → 2023-08-16 15:10 | Outpatient (BNVA) | payer OTHER, SELFPAY | PROVIDERS: PCP Family Medicine; Visit Provider Orthopaedic Surgery | DX: M48.062 Spinal stenosis, lumbar region with neurogenic claudication (principal); M47.816 Spondylosis without myelopathy or radiculopathy, lumbar region | CPT/HCPCS: 72100; 99214 ==

== ENCOUNTER 2023-09-19 08:46 | Outpatient (CLI) | payer OTHER, SELFPAY ==
[2023-09-19 09:58] LABS: Basophils # 0.1 10^3/uL (0.0-0.1); Basophils % 1.2 %; Eosinophils # 0.2 10^3/uL (0.0-0.8); Eosinophils % 2.1 %; Hematocrit 50.2 % (37-53); Lymphocytes # 2.1 10^3/uL (0.8-4.8); Lymphocytes % 27.1 %; Mean Corpuscular HGB Conc 32.3 g/dL (30-55); Mean Corpuscular Hemoglobin 29.8 pg (27-33); Mean Corpuscular Volume 92.3 fl (82-101); Mean Platelet Volume 9.8 fL (7.4-10.4); Monocytes # 0.8 10^3/uL (0.2-0.9); Monocytes % 10.1 %; Neutrophils # 4.51 10^3/uL (1.8-7.7); Neutrophils % 59.2 %; Nucleated Red Blood Cells % 0 %; Platelet Count 194 10^3/cmm (157-399); Red Blood Count 5.44 10^6/uL (3.85-5.65); White Blood Count 7.61 10^3/uL (3.29-11.43)
[2023-09-19 10:20] LABS: Alanine Aminotransferase 8 U/L (0-41); Albumin Level 3.7 g/dL (3.5-5.2); Alkaline Phosphatase 91 U/L (40-130); Anion Gap 19.4 (5-19); Aspartate Amino Transferase 14 U/L (0-40); Blood Urea Nitrogen 13 mg/dL (8-23); Calcium 9.1 mg/dL (8.5-10.5); Carbon Dioxide 23 mmol/L (22-29); Chloride 103 mmol/L (98-107); Glomerular Filtration Rate 74.1 mL/min (90-130); Glucose 116 mg/dL (65-115); Osmolality Calculated 295 mOsm/kg (285-295); Potassium 3.4 mmol/L (3.5-5.1); Sodium 142 mmol/L (136-145); Total Bilirubin 0.3 mg/dL (0.15-1.2); Total Protein 7.7 g/dL (6.6-8.7)
[2023-09-19 13:36] LABS: Add Urine Microscopic? YES; Bilirubin Urine 1+ (Negative); Blood Urine Neg (Negative); Glucose Urine UA Norm (Normal); Ketones Urine Negative (Negative); Leukocyte Esterase Urine Negative (Negative); Nitrate Urine Negative (Negative); Protein Urine Trace (Negative); Specific Gravity, Urine 1.025 (1.005-1.030); Urine Appearance Clear (CLEAR); Urine Color Yellow (Yellow); Urobilinogen Urine 1 mg/dL (Negative); pH Urine 5 (5-7)
[2023-09-19 13:40] LABS: Add Urine Culture? No; Bacteria Urine TRACE /hpf; Mucus Urine 3+ /hpf; RBC Urine 0-4 /hpf (0-2); Squamous Epithelial Cell Urine 0-4 /hpf (0-5); WBC Urine 0-4 /hpf (0-5)
== END 2023-09-19 08:47 | disposition home or self-care (01) ==
LOC: LAB 08:47
PROVIDERS: PCP Family Medicine; Visit Provider Orthopaedic Surgery
DX: Z01.818 Encounter for other preprocedural examination (principal)
CPT/HCPCS: 36415; 80053; 81001; 85025

== ENCOUNTER 2023-09-28 08:34 | Day surgery (SDC) | payer OTHER, SELFPAY ==
--- OUTSIDE RECORDS SUMMARY | 2023-08-17 09:49 | XMS_ITS | Patient Health Record ---
Author Name Unknown Organization [facility] Address [address] [place] [address] Support Name Relationship Address Phone Eber Fernandez Guarantor Unknown [phone] REASON FOR REFERRAL No Information MEDICATIONS Medication SIG (Take, Route, Frequency, Duration) Notes Start Date End Date Status Omeprazole 20 MG Enteric Coated Capsule Omeprazole 20 MG Enteric Coated Capsule 10/23/2018 0 Active Acetaminophen 325 MG / Hydrocodone Bitartrate 10 MG Oral Tablet [[place] 10/325] Acetaminophen 325 MG / Hydrocodone Bitartrate 10 MG Oral Tablet [[place] 10/325] 10/23/2018 0 Active Simvastatin 40 MG Oral Tablet Simvastatin 40 MG Oral Tablet 10/23/2018 0 Active Metoprolol Tartrate 25 MG Oral Tablet Metoprolol Tartrate 25 MG Oral Tablet 10/23/2018 0 Active Advil Advil 10/23/2018 0 Active Methocarbamol 750 MG Oral Tablet Methocarbamol 750 MG Oral Tablet 10/23/2018 0 Active clopidogrel 75 MG Oral Tablet clopidogrel 75 MG Oral Tablet 10/23/2018 0 Active Cholecalciferol 1000 UNT Oral Capsule Cholecalciferol 1000 UNT Oral Capsule 10/23/2018 0 Active Aspirin 81 MG Oral Tablet Aspirin 81 MG Oral Tablet 10/23/2018 0 Active IMMUNIZATIONS Vaccine Route Administration Date Status Comme nts Influenza (whole), CPT 16296 Inactive Unknown 10/23/2018 Administered SOCIAL HISTORY Sex Assigned At : Social History Observation Description Sex Assigned At Unknown PLAN OF TREATMENT No Information
[2023-09-28] VITALS (10 sets, daily range): BP systolic 142–177; BP diastolic 97–116; PULSE 74–89; RESP 16–20; TEMP 36.6–37.2; O2SAT 92–100; BMI 23.4
--- NOTE | 2023-09-28 | XR_ITS ---
WS: [id number] XR lumbar spine 1V [id number] REASON FOR EXAM: ISABEL PICS FINDINGS: Surgical instrument overlying the right L4-L5 disc space. IMPRESSION: Lumbar level localization and surgery as above.
--- OUTSIDE RECORDS SUMMARY | 2023-09-28 08:36 | XMS_ITS | Patient Health Record ---
Author Name Unknown Organization [facility] Address [address] [place] [address] Support Name Relationship Address Phone Eber Fernandez Guarantor Unknown [phone] REASON FOR REFERRAL No Information MEDICATIONS Medication SIG (Take, Route, Frequency, Duration) Notes Start Date End Date Status Omeprazole 20 MG Enteric Coated Capsule Omeprazole 20 MG Enteric Coated Capsule 10/23/2018 0 Active Acetaminophen 325 MG / Hydrocodone Bitartrate 10 MG Oral Tablet [[place] 10/325] Acetaminophen 325 MG / Hydrocodone Bitartrate 10 MG Oral Tablet [[place] 10/325] 10/23/2018 0 Active Simvastatin 40 MG [...] Date Status Comme nts Influenza (whole), CPT 79576 Inactive Unknown 10/23/2018 Administered SOCIAL HISTORY Sex Assigned At : Social History Observation Description Sex Assigned At Unknown PLAN OF TREATMENT No Information
[2023-09-28] MEDS: sodium chloride 0.9% 1,000 ML 30 ML IV (09:41)
--- NOTE | 2023-09-28 09:44 | W.PM.OPSUD ---
Surgery/Procedure H&P Update DATE OF PROCEDURE: September 28, 2023 DATE H&P PERFORMED: 09/21/23 H&P UPDATE INFORMATION: I have reviewed H&P completed within last 30 days, I have examined patient prior to procedure and No changes to prior documentation PLANNED PROCEDURE: Operation Date: 09/28/23 10:10 Proposed Procedures p Bilateral L4/5 Minimally Invasive Lumbar Decompression - Stand on the Right(Bilateral) - Neto De DO
--- NOTE | 2023-09-28 09:49 | ANES.PREANE2 ---
Pre-Anesthetic Assessment Height/Weight: Height 1.73 m Weight 70 kg Temp Pulse Resp BP Pulse Ox O2 Del Method 97.8 F 74 18 177/109 97 Room Air 09/28/23 09:12 09/28/23 09:12 09/28/23 09:12 09/28/23 09:12 09/28/23 09:12 09/28/23 09:17 Operation Date: 09/28/23 10:10 Proposed Procedures p Bilateral L4/5 Minimally Invasive Lumbar Decompression - Stand on the Right(Bilateral) - Neto De, DO Familial anesthetic complications: None Was Beta Sasha taken within 24 hours: N/A Was Clonidine taken within 24 hours: N/A Last intake: Intake Last Liquid Date 09/27/23 Last Liquid Time 21:00 Last Solid Date 09/27/23 Last Solid Time 16:00 Social No alcohol and No tobacco former smoker Exam alert, oriented x 3, clear to auscultation bilaterally and regular rate & rhythm Airway Mallampati: Class III Dentition: full Pulmonary Chronic Obstructive Pulmonary Disease CV/HEM Coronary Artery Disease (5 stents > 1 year ago), Hypertension, Myocardial Infarction and Peripheral Vascular Disease (holding plavix) TAA Hepatic Hepatitis (C) Metabolic Hyperlipidemia Anesthetic Plan ASA status: 3 Anesthesia: General Risk of > 500 ml blood loss (7ml/kg in children): No Medications/Allergies Home Medications Medication Instructions Recorded Confirmed Last Taken Type omeprazole 40 mg capsule,delayed 40 mg PO QAM 11/04/19 09/27/23 09/28/23 07:00 History release simvastatin 40 mg tablet 20 mg PO QPM 12/24/19 09/27/23 09/27/23 History trazodone 100 mg tablet 50 mg PO BEDTIME PRN Sleep 07/19/20 09/28/23 09/14/23 History clopidogrel 75 mg tablet (Plavix) 75 mg PO QAM 07/22/20 09/27/23 09/21/23 History gabapentin 300 mg capsule 300 mg PO .UP TO TID 12/08/21 09/27/23 09/28/23 07:00 History naproxen sodium 220 mg tablet 220 mg PO BID PRN Pain 01/05/22 09/27/23 09/13/23 History (Aleve) albuterol sulfate 90 mcg/actuation 2 puff inhalation Q6H PRN 0209/28/23 09/28/23 07:00 History aerosol inhaler (ProAir HFA) Shortness Of Breath metoprolol succinate 50 mg 50 mg PO DAILY PRN Blood Pressure 10/25/22 09/28/23 09/27/23 History tablet,extended release 24 hr umeclidinium 62.5 mcg/actuation 1 inh inhalation DAILY 10/25/22 09/27/23 09/27/23 20:00 History blister powder for inhalation (Incruse Ellipta) Allergies Allergy/AdvReac Type Severity Reaction Status Date / Time No Known Allergies Allergy Verified 09/27/23 09:41 Current Medications Generic Name Dose Route Start Last Admin Trade Name Freq PRN Reason Stop Dose Admin Sodium Chloride 1,000 mls @ 30 mls/hr 09/28/23 09:00 09/28/23 09:41 Sodium Chloride 0.9% IV 09/29/23 08:59 30 mls/hr .Q24H LAVON Administration PFSH Anesthesia Medical History Lung mass biopsy showed salivarius and resolved with antibiotics Migrated esophageal stent removed endoscopically 10/13/20 Intervertebral disc disorder with radiculopathy of lumbosacral region Peripheral arterial disease Tracheoesophageal fistula Myocardial infarction Chronic back pain Polycythemia COPD (chronic obstructive pulmonary disease) HTN (hypertension) Dyslipidemia ASHD (arteriosclerotic heart disease) Thoracic aortic aneurysm Surgical History H/O esophagogastroduodenoscopy (10/13/20) for removal of migrated esophageal stent S/P bronchoscopy with biopsy History of lumbar discectomy [facility], 2012 History of coronary angioplasty S/P insertion of iliac artery stent Family History Denies family history of Anesthesia complication Bleeding disorder Social History Smoking and tobacco/nicotine status: current every day tobacco/nicotine user cigarettes Packs smoked per day: 0.75 Years cigarettes smoked: 50 Second hand smoke exposure: No Alcohol intake: never Substance/Drug Use: never Caregiver/support person: Yes Lives independently: Yes Household members: none Marital status: Single service: Yes branch: [employer] Current occupational status: retired Pets and animals: Yes Do you think of yourself as: Straight/Heterosexual Current gender identity: Male Data Anesthesia Cardiac Studies: No Data to Display
[2023-09-28] MEDS: fentaNYL 50 mcg/mL INJ 2mL IVP (09:53)
--- NOTE | 2023-09-28 09:55 | SUR.PREOP ---
MEDICATED FOR BACK PAIN PER ANESTHESIA.
[2023-09-28] MEDS: ceFAZolin 2,000 MG in sodium chloride 0.9% (plus) 50 ML 100 MG IV (11:11)
[2023-09-28] MEDS: thrombin 5,000 unit SDV 5000 UNIT XX (11:54)
[2023-09-28] MEDS: lidocaine-epi 2% 20 mL INJ INJECTION (11:55)
--- NOTE | 2023-09-28 12:44 | PM.OP ---
Operative Report Date of procedure: September 28, 2023 Pre-op diagnosis: Lumbar stenosis with neurogenic claudication Post-op diagnosis: same Procedure done: L4-5 laminectomy with partial facetectomies Surgeon: Neto De DO Estimated blood loss (mL): 10 Procedure: L4-5 laminectomy with partial facetectomies Patient is brought to the operative suite. After undergoing anesthesia they are placed in the prone position. All areas of impingement are well padded. Patient is then prepped and draped in the normal sterile fashion. A skin incision is made over the L4-5 level. This is confirmed under c-arm guidance. A series of dilators are passed and the tubular retractor is docked on the L4 lamina. A bovie is used to clear the soft tissue off the lamina and the L 4/5 facet joint. A high speed mariama is then used to perform the laminectomy and take down the medial aspect of the L 4/5 facet joint. A kerrison rongeure was then used to take down the remaining lamina and smooth the edged of the laminectomy up to the point where the ligamentum flavum attaches. Attention was then brought to the medial aspect of the facet joint. The remaining medial aspect of the superior and inferior aspect of the facet joint were taken down with the kerrison from the pedicle of L4 to L 5. The facet joint had significant hypertrophy. Attention was then brought to the Ligamentum Flavum. The ligament was taken down from the lamina of L4 to L5 and out medially to the remaining facet joint. The ligament was thick. The dura was then exposed. The dura was in good repair. The L4 nerve was then traced with a curette out the L4/5 foramen and found to be adequately decompressed. The L5 nerve was traced with a curette around the L5 pedicle. The lateral recess was opened with a kerrison helping to further decompress the L5 nerve. The tubular retractor was then tilted to the contralateral side. The bovie was used to take down the soft tissue on the spinous process. The high speed mariama was used to take down the spinous process and then the contralateral lamina of L4. The kerrison rongeur was used to take down the remaining lamina to the point where the ligamentum flavum attached and the ligamentum flavum was taken down from L4 to L5. The kerrison rongeur was then used to reach across and take down the medial aspect of the contralateral L4/5 facet joint.The currete was used to trace the contralateral L4 nerve out the L4/5 foramen to make sure it was decompressed adequatesly and the L5 was traced around the L5 pedicle. The lateral recess was opened further with the kerrison to ensure the L5 is adequately decompressed. Wound is then irrigated copiously with saline and surgiflo is used to stop any bleeding. The tubular retractor is removed and the wound is closed with vicryl and monocryl suture. Glue is then used to protect the wound. A sterile dressing is then placed. Patient was then placed in the supine position and transferred to the PACU in stable condition.
--- NOTE | 2023-09-28 12:53 | SUR.PHASEII ---
ROM AND SENSATION PRESENT IN ALL 4 EXTREMITIES.
[2023-09-28] MEDS: labetalol 5 mg/mL SDV 20mL IVP (13:04)
--- NOTE | 2023-09-28 14:00 | ANE.PACU2 ---
Inpatient post-anesthesia follow up: Airway intact: Yes Vital signs: Temperature 98.0 F Pulse Rate 76 Respiratory Rate 16 Blood Pressure 142/103 Pulse Oximetry 93 Oxygen Delivery Me thod Room Air Oxygen Flow Rate 6 Fraction of Inspir ed Oxygen Hydration adequate: Yes Nausea and vomiting: No Pain level: 1 Mental status: Baseline
== END 2023-09-28 14:00 | disposition home or self-care (01) ==
PROVIDERS: PCP Family Medicine; Visit Provider Orthopaedic Surgery
PROC: (CPT 63005; principal; 2023-09-28 10:10)
DX: M48.062 Spinal stenosis, lumbar region with neurogenic claudication (principal); Z87.891 Personal history of nicotine dependence; J44.9 Chronic obstructive pulmonary disease, unspecified; I25.10 Atherosclerotic heart disease of native coronary artery without angina pectoris; Z95.5 Presence of coronary angioplasty implant and graft; I10 Essential (primary) hypertension; I25.2 Old myocardial infarction; Z86.19 Personal history of other infectious and parasitic diseases; E78.5 Hyperlipidemia, unspecified
CPT/HCPCS: 63047; 72020; 76000; J0690; J1100; J2405; J2704; J3010; J3490; J7030

== ENCOUNTER → 2023-10-11 07:47 | Outpatient (BNVA) | payer OTHER, SELFPAY | PROVIDERS: PCP Family Medicine; Visit Provider Orthopaedic Surgery | DX: Z47.89 Encounter for other orthopedic aftercare (principal) | CPT/HCPCS: 99024 ==

== ENCOUNTER 2023-10-14 14:48 | Emergency (ER) | payer OTHER, SELFPAY ==
[2023-10-14 14:53] VITALS: BP 171/99; PULSE 57; TEMP 36.6; O2SAT 96; BMI 23.6
[2023-10-14 15:12] LABS: Basophils # 0.1 10^3/uL (0.0-0.1); Basophils % 1.4 %; Eosinophils # 0.4 10^3/uL (0.0-0.8); Eosinophils % 3.6 %; Hematocrit 49.5 % (37-53); Lymphocytes # 1.8 10^3/uL (0.8-4.8); Lymphocytes % 18.4 %; Mean Corpuscular HGB Conc 33.3 g/dL (30-55); Mean Corpuscular Hemoglobin 29.9 pg (27-33); Mean Corpuscular Volume 89.8 fl (82-101); Mean Platelet Volume 9.5 fL (7.4-10.4); Monocytes % 9.8 %; Neutrophils # 6.43 10^3/uL (1.8-7.7); Nucleated Red Blood Cells % 0 %; Platelet Count 325 10^3/cmm (157-399); Red Blood Count 5.51 10^6/uL (3.85-5.65); Red Cell Distribution Width 14.7 % (12.1-15.1); White Blood Count 9.76 10^3/uL (3.29-11.43)
[2023-10-14 15:33] LABS: Alanine Aminotransferase 8 U/L (0-41); Albumin Level 3.8 g/dL (3.5-5.2); Alkaline Phosphatase 97 U/L (40-130); Anion Gap 16.6 (5-19); Aspartate Amino Transferase 14 U/L (0-40); Blood Urea Nitrogen 23 mg/dL (8-23); Calcium 9.3 mg/dL (8.5-10.5); Carbon Dioxide 25 mmol/L (22-29); Chloride 102 mmol/L (98-107); Globulin 4.6 g/dL (1.3-4.6); Glomerular Filtration Rate 40.2 mL/min (90-130); Glucose 97 mg/dL (65-115); Osmolality Calculated 292 mOsm/kg (285-295); Potassium 4.6 mmol/L (3.5-5.1); Sodium 139 mmol/L (136-145); Total Bilirubin 0.3 mg/dL (0.15-1.2); Total Protein 8.4 g/dL (6.6-8.7)
[2023-10-14 15:48] LABS: Urine Appearance Clear (CLEAR); Urine Color Yellow (Yellow); pH Urine 7 (5-7)
[2023-10-14 15:49] LABS: Add Urine Culture? No; Add Urine Microscopic? YES; Bacteria Urine TRACE /hpf; Bilirubin Urine Neg (Negative); Blood Urine 2+ (Negative); Glucose Urine UA Norm (Normal); Ketones Urine Negative (Negative); Leukocyte Esterase Urine Negative (Negative); Nitrate Urine Negative (Negative); Protein Urine 1+ (Negative); RBC Urine 0-4 /hpf (0-2); Urobilinogen Urine Norm (Negative); WBC Urine RARE /hpf (0-5)
--- NOTE | 2023-10-14 16:17 | ED_ITS ---
HPI - Male Genitourinary 2 General: Chief complaint: Urogenital-Male Stated complaint: UTI; HTN Time Seen by Provider: 10/14/23 14:51 History of Present Illness: 67-year-old male presents emergency depa rtment with complaints of feeling like he might have a urinary tract infection as well as elevated blood pressure. Patient complains of dysuria. He denies any gross hematuria. He states he has intermittently been nauseated and complains of intermittent lower abdominal pain. He denies fevers chills or night sweats.. 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 Migrated esophageal stent removed endoscopically 10/13/20 Intervertebral disc disorder with radiculopathy of lumbosacral region Peripheral arterial disease Tracheoesophageal fistula Myocardial infarction Chronic back pain Polycythemia COPD (chronic obstructive pulmonary disease) HTN (hypertension) Dyslipidemia ASHD (arteriosclerotic heart disease) Thoracic aortic aneurysm Surgical History H/O esophagogastroduodenoscopy (10/13/20) for removal of migrated esophageal stent S/P bronchoscopy with biopsy History of lumbar discectomy [facility], 2012 History of coronary angioplasty S/P insertion of iliac artery stent Family History Denies family history of Anesthesia complication Bleeding disorder Social History Smoking and tobacco/nicotine status: current every day tobacco/nicotine user cigarettes Packs smoked per day: 0.75 Years cigarettes smoked: 50 Second hand smoke exposure: No Alcohol intake: never Substance/Drug Use: never Caregiver/support person: Yes Lives independently: Yes Household members: none Marital status: Single service: Yes branch: [employer] Current occupational status: retired Pets and animals: Yes Do you think of yourself as: Straight/Heterosexual Current gender identity: Male Physical Exam 2 Narrative: EXAM NARRATIVE: Constitutional: the patient appears well nourished and of normal development. Vital signs as documented. No acute distress at present. Alert and oriented-to person, place, time and situation. Head, eyes, ears, nose, mouth, throat: Normocephalic, atraumatic. Pupils-equal, round, reactive to light. No scleral icterus. Normal-appearing external ears. Normal appearing nasal turbinates, no drainage. No obvious oral lesions, posterior oropharynx without erythema or exudates. Neck: Supple, trachea is midline, no lymphadenopathy, no jugular venous distension, thyromegaly, or carotid bruits. Carotid upstrokes are brisk bilaterally. Lungs: clear to auscultation to all lung genao. Symmetrical rise and fall of chest, no obvious signs of increased work of breathing at present. Cardiac: Regular rate and rhythm, positive S1, S2. No murmurs, rubs or gallops that I can appreciate Abdomen: Soft, non-tender to palpation, normal active bowel sounds to all quadrants. No palpable masses, no organomegaly and abdominal bruits. Extremities: 2+ pulses in the upper extremities that are equal bilaterally, 2+ pulses in the lower extremities that are equal bilaterally. Non-edematous. Moves all extremities well, sensation to all extremities are noted. Skin: Warm, dry, intact. Course 2 Vital Signs: Vital signs: Vital Signs Temperature 97.8 F 10/14/23 14:53 Pulse Rate 57 L 10/14/23 14:53 Blood Pressure 171/99 10/14/23 14:53 Pulse Oximetry 96 10/14/23 14:53 Oxygen Delivery Me thod Room Air 10/14/23 14:53 MDM - Male Medical Decision Making Physical exam completed and documented patient's blood pressure is 127/89 his heart rate is regular with a rate of 57 his initial blood pressure was 171/99 he has had no emergency department intervention and his blood pressure has decreased on its own. I will obtain a urinalysis which appears to be negative. I also obtained a CBC and a CMP. Medical Records I reviewed the patient's medical records. Lab Data I reviewed the patient's lab results. 10/14/23 14:59 10/14/23 14:59 Laboratory Results WBC 9.76 10^3/uL (3.29-11.43) 10/14/23 14:59 RBC 5.51 10^6/uL (3.85-5.65) 10/14/23 14:59 Hgb 16.50 g/dL (11.27-16.99) 10/14/23 14:59 Hct 49.5 % (37-53) 10/14/23 14:59 MCV 89.8 fl (82-101) 10/14/23 14:59 MCH 29.9 pg (27-33) 10/14/23 14:59 MCHC 33.3 g/dL (30-55) 10/14/23 14:59 RDW 14.7 % (12.1-15.1) 10/14/23 14:59 Plt Count 325 10^3/cmm (157-399) 10/14/23 14:59 MPV 9.5 fL (7.4-10.4) 10/14/23 14:59 Neut % (Auto) 66.0 % 10/14/23 14:59 Lymph % (Auto) 18.4 % 10/14/23 14:59 [place] % (Auto) 9.8 % 10/14/23 14:59 Eos % (Auto) 3.6 % 10/14/23 14:59 Baso % (Auto) 1.4 % 10/14/23 14:59 Neut # (Auto) 6.43 10^3/uL (1.8-7.7) 10/14/23 14:59 Lymph # (Auto) 1.8 10^3/uL (0.8-4.8) 10/14/23 14:59 [place] # (Auto) 1.0 10^3/uL (0.2-0.9) H 10/14/23 14:59 Eos # (Auto) 0.4 10^3/uL (0.0-0.8) 10/14/23 14:59 Baso # (Auto) 0.1 10^3/uL (0.0-0.1) 10/14/23 14:59 Nucleated RBC % (auto) 0 % 10/14/23 14:59 Nucleated RBCs # 0.0 /100WBC 10/14/23 14:59 Sodium 139 mmol/L (136-145) 10/14/23 14:59 Potassium 4.6 mmol/L (3.5-5.1) 10/14/23 14:59 Chloride 102 mmol/L (98-107) 10/14/23 14:59 Carbon Dioxide 25 mmol/L (22-29) 10/14/23 14:59 Anion Gap 16.6 (5-19) 10/14/23 14:59 BUN 23 mg/dL (8-23) 10/14/23 14:59 Creatinine 1.7 mg/dL (0.7-1.2) H 10/14/23 14:59 GFR Calculation 40.2 mL/min (90-130) L 10/14/23 14:59 Glucose 97 mg/dL (65-115) 10/14/23 14:59 Calculated Osmolality 292 mOsm/kg (285-295) 10/14/23 14:59 Calcium 9.3 mg/dL (8.5-10.5) 10/14/23 14:59 Total Bilirubin 0.3 mg/dL (0.15-1.2) 10/14/23 14:59 AST 14 U/L (0-40) 10/14/23 14:59 ALT 8 U/L (0-41) 10/14/23 14:59 Alkaline Phosphatase 97 U/L (40-130) 10/14/23 14:59 Total Protein 8.4 g/dL (6.6-8.7) 10/14/23 14:59 Albumin 3.8 g/dL (3.5-5.2) 10/14/23 14:59 Globulin 4.6 g/dL (1.3-4.6) 10/14/23 14:59 Urine Color Yellow (Yellow) 10/14/23 15:32 Urine Appearance Clear (CLEAR) 10/14/23 15:32 Urine pH 7 (5-7) 10/14/23 15:32 Ur Specific [place] 1.010 (1.005-1.030) 10/14/23 15:32 Urine Protein 1+ (Negative) H 10/14/23 15:32 Urine Glucose (UA) Norm (Normal) 10/14/23 15:32 Urine Ketones Negative (Negative) 10/14/23 15:32 Urine Blood 2+ (Negative) H 10/14/23 15:32 Urine Nitrate Negative (Negative) 10/14/23 15:32 Urine Bilirubin Neg (Negative) 10/14/23 15:32 Urine Urobilinogen Norm mg/dL (Negative) 10/14/23 15:32 Ur Leukocyte Esterase Negative (Negative) 10/14/23 15:32 Urine RBC 0-4 /hpf (0-2) H 10/14/23 15:32 Urine WBC Rare /hpf (0-5) 10/14/23 15:32 Ur Squamous Epith Cells None /hpf (0-5) 10/14/23 15:32 Amorphous Sediment Not Reportable 10/14/23 15:32 Urine Bacteria Trace /hpf (NONE) 10/14/23 15:32 No radiology studies performed this visit Discharge Plan Discharge Patient Disposition: Home Clinical Impression: Elevated blood pressure reading, Dysuria, Hematuria Condition: Stable Prescriptions: No Action simvastatin 40 mg tablet 20 mg PO QPM gabapentin 300 mg capsule 300 mg PO .UP TO TID trazodone 100 mg tablet 50 mg PO BEDTIME PRN (Reason: Sleep) clopidogrel [Plavix] 75 mg Tablet 75 mg PO QAM Hold Instructions: Resume on 10/15/20. naproxen sodium [Aleve] 220 mg tablet 220 mg PO BID PRN (Reason: Pain) omeprazole 40 mg Capsule,Delayed Release(Dr/Ec) 40 mg PO QAM Hold Instructions: Resume on 10/28/20. hydrocodone-acetaminophen 5-325 mg tablet 1 - 2 tab PO .Q4-6H Qty: 40 0RF metoprolol succinate 50 mg Tablet Extended Release 24 Hr 50 mg PO DAILY PRN (Reason: Blood Pressure) albuterol sulfate [ProAir HFA] 90 mcg/actuation Hfa Aerosol Inhaler 2 puff INHALATION Q6H PRN (Reason: Shortness Of Breath) Incruse Ellipta 62.5 mcg/actuation Blister With Device 1 inh INHALATION DAILY Discharge Orders: Discharge ED (Routine); Ordered 10/14/23 Ordered By: John Herman Referrals: Rdaha Mazariegos MD [Primary Care Provider] - Discharge Diet: Usual diet Discharge Activity: Resume usual activity Patient Instructions: Opioid Safety, Pain Management Activity Restrictions/Additional Instructions: Activity Restrictions/Additional Instructions: Thank you for choosing [facility] for your healthcare needs today. Please realize that you were seen in the Emergency Department and that we are providing you with an emergency medical screening exam and this may not be a complete and all inclusive of all the testing and or medical work-up that you may need to determine your ailment or severity of your illness. It is very important that you follow-up as instructed with your Primary care provider or Specialist for additional evaluation and to discuss your medical treatment plan. You may return to the Emergency Department should you have concerns or if your condition changes or worsens in any way. Call to make a Follow-up appointment: [facility] [address] [place] [address] [facility] [address] [place] [address] Dr.ive Hayes [place], [place] [address] Phone--[phone] Coding Level of Care Code ED Neurology Tech for Malu Galvin
== END 2023-10-14 17:02 | disposition home or self-care (01) ==
PROVIDERS: Emergency Provider Internal Medicine; PCP Family Medicine
DX: R30.0 Dysuria (principal); R31.9 Hematuria, unspecified; R03.0 Elevated blood-pressure reading, without diagnosis of hypertension; Z79.02 Long term (current) use of antithrombotics/antiplatelets; F17.210 Nicotine dependence, cigarettes, uncomplicated; I25.2 Old myocardial infarction; J44.9 Chronic obstructive pulmonary disease, unspecified; I10 Essential (primary) hypertension; E78.5 Hyperlipidemia, unspecified
CPT/HCPCS: 80053; 81001; 85025; 99283

== ENCOUNTER → 2023-11-09 08:17 | Outpatient (BNVA) | payer OTHER, SELFPAY | PROVIDERS: PCP Family Medicine; Visit Provider Orthopaedic Surgery | DX: Z98.890 Other specified postprocedural states (principal) | CPT/HCPCS: 99024 ==

== ENCOUNTER 2023-11-22 13:53 | Outpatient (RCR) | payer OTHER, SELFPAY | END 2023-12-09 23:59 | disposition home or self-care (01) | LOC: SPT 13:53 | PROVIDERS: PCP Orthopaedic Surgery; Visit Provider Orthopaedic Surgery | DX: M96.1 Postlaminectomy syndrome, not elsewhere classified (principal) | CPT/HCPCS: 97110; 97161 ==

== ENCOUNTER 2023-12-17 12:23 | Observation (INO) | payer OTHER, SELFPAY ==
[2023-12-17] VITALS (8 sets, daily range): BP systolic 89–141; BP diastolic 55–87; PULSE 49–81; RESP 16–20; TEMP 36.3–36.6; O2SAT 95–97; BMI 23.6
--- NOTE | 2023-12-17 12:28 | ECG_ITS ---
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 Measurements Intervals [place] Rate: 57 P: 62 ND: 198 QRS: -2 QRSD: 89 T: 29 QT: 436 QTc: 427 Interpretive Statements SINUS BRADYCARDIA POSSIBLE RIGHT VENTRICULAR CONDUCTION DELAY [RSR (QR) IN V1/V2] NONSPECIFIC T-WAVE ABNORMALITY Compared to ECG 08/09/2020 19:06:26 T-wave abnormality now present Sinus rhythm no longer present Electronically Signed On 12-17-2023 13:11:26 CDT by Jareth Jefferson M.D. [id number]
--- NOTE | 2023-12-17 12:36 | W.ED.GENADLT ---
HPI - General Adult General: Chief complaint: General Medical Stated complaint: hypotension Time Seen by Provider: 12/17/23 12:24 Source: patient Mode of arrival: ambulatory History of Present Illness: 68-year-old male presents emergency room with low blood pressure. He states he was told by his doctor that his kidney function was abnormal recently. He denies any fever sweats chills dysuria urgency or frequency or any hematuria no chest pain or shortness of breath no abdominal pain. Generally feels very weak they have decreased some of his blood pressure medications recently initially on presentation he is hypotensive. Onset (ago): day(s) Relieving factors: none Exacerbating factors: none Associated symptoms: Deny chest pain, confusion, cough, diaphoresis, decreased appetite, dyspnea, fevers/chills, headache(s), malaise, nausea, rash, palpitations, seizures, short of breath, syncope, vomiting or weakness Treatments prior to arrival: none Review of Systems Const: Denies: fever(s), chills, malaise or diaphoresis Card: Denies: chest pain, palpitations or syncope Resp: Denies: dyspnea GI: Denies: abdominal pain, nausea or vomiting : Denies: dysuria, urinary frequency or urinary urgency Musc: Denies: neck pain or back pain Skin/Breast: Denies: rash Neuro: Denies: headache(s) or confusion [facility] ED PFSH: Medical History Lung mass biopsy showed salivarius and resolved with antibiotics Migrated esophageal stent removed endoscopically 10/13/20 Intervertebral disc disorder with radiculopathy of lumbosacral region Peripheral arterial disease Tracheoesophageal fistula Myocardial infarction Chronic back pain Polycythemia COPD (chronic obstructive pulmonary disease) HTN (hypertension) Dyslipidemia ASHD (arteriosclerotic heart disease) Thoracic aortic aneurysm Surgical History H/O esophagogastroduodenoscopy (10/13/20) for removal of migrated esophageal stent S/P bronchoscopy with biopsy History of lumbar discectomy [facility], 2012 History of coronary angioplasty S/P insertion of iliac artery stent Family History Denies family history of Anesthesia complication Bleeding disorder Social History Smoking and tobacco/nicotine status: current every day tobacco/nicotine user cigarettes Packs smoked per day: 0.75 Years cigarettes smoked: 50 Second hand smoke exposure: No Alcohol intake: never Substance/Drug Use: never Caregiver/support person: Yes Lives independently: Yes Household members: none Marital status: Single service: Yes branch: [employer] Current occupational status: retired Pets and animals: Yes Do you think of yourself as: Straight/Heterosexual Current gender identity: Male Physical Exam Const: COMMON NORMALS: no acute distress GENERAL APPEARANCE: cooperative and comfortable ORIENTATION/CONSCIOUSNESS: Yes awake, Yes oriented to person, Yes oriented to place and Yes oriented to time HENMT: COMMON NORMALS: normocephalic, atraumatic and hearing grossly normal bilaterally HEAD & SCALP: normocephalic and atraumatic Resp: COMMON NORMALS: normal respiratory effort, No retractions, No use of accessory muscles and clear to auscultation bilaterally AUSCULTATION: clear to auscultation bilaterally Cardio: COMMON NORMALS: regular rate, regular rhythm and No murmurs present (Cardio) RATE: regular rate RHYTHM: regular rhythm GI: COMMON NORMALS: Soft to palpation and No hepatosplenomegaly present AUSCULTATION: Yes normoactive bowel sounds PALPATION: Yes Soft to palpation, No Tenderness to palpation present (GI), No Guarding due to palpation present (GI) and Yes No hepatosplenomegaly present Extremity: COMMON NORMALS: normal to inspection, capillary refill normal, no clubbing, cyanosis or edema, no calf tenderness and no pedal edema Neuro: SENSORIUM/ORIENTATION: Yes oriented to person, Yes oriented to place and Yes oriented to time Skin: COMMON NORMALS: no rashes or lesions noted GENERAL SKIN EXAM: no rashes or lesions noted Course Vital Signs: Vital signs: Vital Signs Temperature 97.3 F L 12/17/23 16:42 Pulse Rate 52 L 12/17/23 16:42 Respiratory Rate 16 12/17/23 16:42 Blood Pressure 141/87 12/17/23 16:42 Pulse Oximetry 95 12/17/23 16:42 Oxygen Delivery Me thod Room Air 12/17/23 16:42 [facility] - General Adult Medical Decision Making Initially presented to hypotension and acute kidney injury. IV fluids given. Discussed with hospitalist will admit for further evaluation rehydration and adjustment of medications. Reviewed with patient as well labs and imaging reviewed as found in the chart. Medical Records I reviewed the patient's medical records. Lab Data I reviewed the patient's lab results. 12/17/23 13:38 12/17/23 12:34 Laboratory Results WBC 7.85 10^3/uL (3.29-11.43) 12/17/23 13:38 RBC 4.88 10^6/uL (3.85-5.65) 12/17/23 13:38 Hgb 14.80 g/dL (11.27-16.99) 12/17/23 13:38 Hct 45.1 % (37-53) 12/17/23 13:38 MCV 92.4 fl (82-101) 12/17/23 13:38 MCH 30.3 pg (27-33) 12/17/23 13:38 MCHC 32.8 g/dL (30-55) 12/17/23 13:38 RDW 15.5 % (12.1-15.1) H 12/17/23 13:38 Plt Count 145 10^3/cmm (157-399) L 12/17/23 13:38 MPV 10.3 fL (7.4-10.4) 12/17/23 13:38 Neut % (Auto) 60.7 % 12/17/23 13:38 Lymph % (Auto) 23.8 % 12/17/23 13:38 [place] % (Auto) 12.2 % 12/17/23 13:38 Eos % (Auto) 1.4 % 12/17/23 13:38 Baso % (Auto) 0.9 % 12/17/23 13:38 Neut # (Auto) 4.76 10^3/uL (1.8-7.7) 12/17/23 13:38 Lymph # (Auto) 1.9 10^3/uL (0.8-4.8) 12/17/23 13:38 [place] # (Auto) 1.0 10^3/uL (0.2-0.9) H 12/17/23 13:38 Eos # (Auto) 0.1 10^3/uL (0.0-0.8) 12/17/23 13:38 Baso # (Auto) 0.1 10^3/uL (0.0-0.1) 12/17/23 13:38 Nucleated RBC % (auto) 0 % 12/17/23 13:38 Nucleated RBCs # 0.0 /100WBC 12/17/23 13:38 Sodium 134 mmol/L (136-145) L 12/17/23 12:34 Potassium 3.7 mmol/L (3.5-5.1) 12/17/23 12:34 Chloride 102 mmol/L (98-107) 12/17/23 12:34 Carbon Dioxide 18 mmol/L (22-29) L 12/17/23 12:34 Anion Gap 17.7 (5-19) 12/17/23 12:34 BUN 32 mg/dL (8-23) H 12/17/23 12:34 Creatinine 2.6 mg/dL (0.7-1.2) H 12/17/23 12:34 GFR Calculation 24.5 mL/min (90-130) L 12/17/23 12:34 Glucose 134 mg/dL (65-115) H 12/17/23 12:34 Calculated Osmolality 287 mOsm/kg (285-295) 12/17/23 12:34 Lactic Acid 1.5 mmol/L (0.5-2.2) 12/17/23 13:38 Calcium 8.5 mg/dL (8.5-10.5) 12/17/23 12:34 Total Bilirubin 0.3 mg/dL (0.15-1.2) 12/17/23 12:34 AST 14 U/L (0-40) 12/17/23 12:34 ALT 8 U/L (0-41) 12/17/23 12:34 Alkaline Phosphatase 77 U/L (40-130) 12/17/23 12:34 Troponin T Baseline 23 ng/L (0-15) H 12/17/23 12:34 Troponin T 120 Minute 19.75 ng/L (0-15) H 12/17/23 14:52 Delta Troponin T -3.25 ABS# (0-10) L 12/17/23 14:52 NT-Pro-B Natriuret Pep 406 pg/mL (0-125) H 12/17/23 12:34 Total Protein 6.7 g/dL (6.6-8.7) 12/17/23 12:34 Albumin 3.2 g/dL (3.5-5.2) L 12/17/23 12:34 Globulin 3.5 g/dL (1.3-4.6) 12/17/23 12:34 All radiology interpretation(s) finalized by discharge Discharge Plan Discharge Patient Disposition: Admitted As Inpatient Admit Provider: Yin Quiros Clinical Impression: TEE (acute kidney injury) Condition: Stable Coding Level of Care Code ED Sink Maker for Malu Galvin
[2023-12-17 13:14] LABS: Troponin(5th) Baseline 23 ng/L (0-15)
[2023-12-17 13:26] LABS: Alanine Aminotransferase 8 U/L (0-41); Albumin Level 3.2 g/dL (3.5-5.2); Alkaline Phosphatase 77 U/L (40-130); Blood Urea Nitrogen 32 mg/dL (8-23); Calcium 8.5 mg/dL (8.5-10.5); Carbon Dioxide 18 mmol/L (22-29); Chloride 102 mmol/L (98-107); Creatinine Clr Calc Pharmacy 25.8622; Globulin 3.5 g/dL (1.3-4.6); Glomerular Filtration Rate 24.5 mL/min (90-130); Glucose 134 mg/dL (65-115); Osmolality Calculated 287 mOsm/kg (285-295); Sodium 134 mmol/L (136-145); Total Bilirubin 0.3 mg/dL (0.15-1.2); Total Protein 6.7 g/dL (6.6-8.7)
[2023-12-17 13:28] LABS: Anion Gap 17.7 (5-19); Potassium 3.7 mmol/L (3.5-5.1)
[2023-12-17 13:29] LABS: Aspartate Amino Transferase 14 U/L (0-40)
[2023-12-17 13:50] LABS: NT Pro B Type Natriuretic Pept 406 pg/mL (0-125)
[2023-12-17 13:59] LABS: Basophils # 0.1 10^3/uL (0.0-0.1); Basophils % 0.9 %; Eosinophils # 0.1 10^3/uL (0.0-0.8); Eosinophils % 1.4 %; Hematocrit 45.1 % (37-53); Lymphocytes # 1.9 10^3/uL (0.8-4.8); Lymphocytes % 23.8 %; Mean Corpuscular HGB Conc 32.8 g/dL (30-55); Mean Corpuscular Hemoglobin 30.3 pg (27-33); Mean Corpuscular Volume 92.4 fl (82-101); Mean Platelet Volume 10.3 fL (7.4-10.4); Monocytes % 12.2 %; Neutrophils # 4.76 10^3/uL (1.8-7.7); Neutrophils % 60.7 %; Nucleated Red Blood Cells % 0 %; Platelet Count 145 10^3/cmm (157-399); Red Blood Count 4.88 10^6/uL (3.85-5.65); Red Cell Distribution Width 15.5 % (12.1-15.1); White Blood Count 7.85 10^3/uL (3.29-11.43)
[2023-12-17 14:11] LABS: Lactic Sepsis W/Reflex 1.5 mmol/L (0.5-2.2)
--- NOTE | 2023-12-17 14:21 | PC.PHAR ---
pt states he takes care of his own medications-pt brought in medication bottles-pt brought in amlodipine 10mg daily and lisinopril 40mg daily pt states both were dced for over a month states not taken for over a month-pts hi med list had wellbutrin 12h 150mg bid pt states he does not take that-pt states he is suppose to be taking a 81mg aspirin daily pt states he is just taking prn-notes are made in the pharmacy comment pt also had one of his sons bottles of medication for zoloft pt states got mixed up with his states he is not taking
--- NOTE | 2023-12-17 14:32 | ECG_ITS ---
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 Measurements Intervals [place] Rate: 49 P: 58 [place]: 203 QRS: -5 QRSD: 85 T: 26 QT: 467 QTc: 425 Interpretive Statements SINUS BRADYCARDIA POSSIBLE RIGHT VENTRICULAR CONDUCTION DELAY [RSR (QR) IN V1/V2] NONSPECIFIC T-WAVE ABNORMALITY Compared to ECG 12/17/2023 12:28:56 No significant changes Electronically Signed On 12-17-2023 15:42:02 CDT by Jareth Jefferson M.D. [email or web address]
[2023-12-17 15:22] LABS: Troponin 5 2HR 19.75 ng/L (0-15); Troponin 5 2HR Delta -3.25 ABS# (0-10)
[2023-12-17] MEDS: sodium chloride 0.9% 1,000 ML 999 ML IV (15:45)
--- NOTE | 2023-12-17 16:21 | PM.HP ---
Providers/Chief Complaint Admitting Physician: Yin Quiros MD Primary Care Provider: Radha Mazariegos MD Chief Complaint: hypotension History of Present Illness Eber Fernandez is a 68 year old male With history of ischemic heart disease s/p PCI x 2, abdominal aortic aneurysm, lumbar stenosis with neurogenic claudication, hypertension ,COPD ,active smoker with 1 pack/day for more than 30 years, peripheral arterial disease, chronic hepatitis C infection, s/p insertion of iliac artery stent ,s/p lumbar laminectomy , esophageal ulcer s/p surgery, was brought in by ambulance for complaint of dizziness and systolic blood pressure of 70s to 80s. He reports feeling dizzy since last 2 days and having stomach upset with watery diarrhea but no nausea vomiting or fever. He also reported to have headache for 1 week. Denies having any outside food. Denies any complaint of chest pain shortness of breath fever cold or cough. He admits taking his blood pressure medication regularly but has not been eating or drinking well for last 2 to 3 days. On arrival to ER he was found to have systolic blood pressure in 80s, with elevated creatinine of 2.6, his baseline creatinine is 1. Also found to have hyponatremia with sodium of 134. EKG was normal sinus rhythm. He has mildly elevated troponins but denied any chest pain or shortness of breath. Review of Systems General: Reports: 10 or more systems reviewed and unremarkable except in HPI and below Medications/Allergies Home Medications Medication Instructions Recorded Confirmed Last Taken Type omeprazole 40 mg capsule,delayed 40 mg PO QAM 11/04/19 12/17/23 12/17/23 History release trazodone 100 mg tablet 50 mg PO BEDTIME PRN Sleep 07/19/20 12/17/23 09/14/23 History clopidogrel 75 mg tablet (Plavix) 75 mg PO QAM 07/22/20 12/17/23 12/17/23 History gabapentin 300 mg capsule 600 mg PO TID 12/08/21 12/17/23 12/17/23 History naproxen sodium 220 mg tablet 220 mg PO BID PRN Pain 01/05/22 12/17/23 09/13/23 History (Aleve) albuterol sulfate 90 mcg/actuation 2 puff inhalation Q6H PRN 10/25/22 12/17/23 09/28/23 07:00 History aerosol inhaler (ProAir HFA) Shortness Of Breath metoprolol succinate 50 mg 50 mg PO QAM 10/25/22 12/17/23 12/17/23 History tablet,extended release 24 hr hydrocodone 5 mg-acetaminophen 325 1 - 2 tab PO .Q4-6H PRN pain 7 11/09/23 12/17/23 Unknown Rx mg tablet days #40 tabs aspirin 81 mg tablet,delayed 81 mg PO DAILY PRN Chest Pain 12/17/23 12/17/23 Unknown History release cholecalciferol (vitamin D3) 25 25 mcg PO QAM 12/17/23 12/17/23 Unknown History mcg (1,000 unit) capsule (Vitamin D3) mometasone 200 mcg/actuation HFA 2 puff inhalation BID 12/17/23 12/17/23 Unknown History aerosol inhaler olodaterol 2.5 mcg/actuation mist 2 inh inhalation DAILY 12/17/23 12/17/23 Unknown History for inhalation rosuvastatin 40 mg tablet (Crestor) 40 mg PO BEDTIME 12/17/23 12/17/23 12/16/23 History Allergies Allergy/AdvReac Type Severity Reaction Status Date / Time No Known Allergies Allergy Verified 12/17/23 14:12 PFSH Acute PFSH: Medical History Lung mass biopsy showed salivarius and resolved with antibiotics Migrated esophageal stent removed endoscopically 10/13/20 Intervertebral disc disorder with radiculopathy of lumbosacral region Peripheral arterial disease Tracheoesophageal fistula Myocardial infarction Chronic back pain Polycythemia COPD (chronic obstructive pulmonary disease) HTN (hypertension) Dyslipidemia ASHD (arteriosclerotic heart disease) Thoracic aortic aneurysm Surgical History H/O esophagogastroduodenoscopy (10/13/20) for removal of migrated esophageal stent S/P bronchoscopy with biopsy History of lumbar discectomy [facility], 2011 History of coronary angioplasty S/P insertion of iliac artery stent Family History Denies family history of Anesthesia complication Bleeding disorder Social History Smoking and tobacco/nicotine status: current every day tobacco/nicotine user cigarettes Packs smoked per day: 0.75 Years cigarettes smoked: 50 Second hand smoke exposure: No Alcohol intake: never Substance/Drug Use: never Caregiver/support person: Yes Lives independently: Yes Household members: none Marital status: Single service: Yes branch: [employer] Current occupational status: retired Pets and animals: Yes Do you think of yourself as: Straight/Heterosexual Current gender identity: Male Vitals/I&O/Wt Last Vital Signs Pulse 49 L 12/17/23 15:00 Resp 20 H 12/17/23 15:00 BP 120/82 12/17/23 15:00 Pulse Ox 95 12/17/23 15:00 12/17/23 12/17/23 12/17/23 06:59 14:59 22:59 Intake Total 549.45 / 549.45 Balance 549.45 / 549.45 Weight last 48 hrs Weight 70.307 kg Physical Exam Narrative: He is alert awake oriented x 3 anxious Chest is clear to auscultation bilaterally Cardiovascular normal heart sounds no murmurs Abdomen soft nontender nondistended normal bowel sounds Extremities no edema seen bilaterally Data 12/17/23 13:38 12/17/23 12:34 Micro: Microbiology 12/17/23 13:43 Blood Culture - Preliminary Blood SPECIMEN COLLECTED 12/17/23 13:38 Blood Culture - Preliminary Blood SPECIMEN COLLECTED EKG 1: My Interpretation: Normal sinus rhythm A&P Assessment and plan (1) TEE (acute kidney injury): (2) Chronic hepatitis C: (3) Status post lumbar laminectomy: (4) Lumbar stenosis with neurogenic claudication: (5) AAA (abdominal aortic aneurysm): (6) Tobacco abuse: (7) HTN (hypertension): (8) COPD (chronic obstructive pulmonary disease): Qualifiers: COPD type: emphysema Emphysema type: centrilobular Qualified Code(s): J43.2 - Centrilobular emphysema (9) Peripheral arterial disease: (10) Lumbar disc disease with radiculopathy: Plan Eber Fernandez is a 68 year old male With history of ischemic heart disease s/p PCI x 2, abdominal aortic aneurysm, lumbar stenosis with neurogenic claudication, hypertension ,COPD ,active smoker with 1 pack/day for more than 30 years, peripheral arterial disease, chronic hepatitis C infection, s/p insertion of iliac artery stent ,s/p lumbar laminectomy , esophageal ulcer s/p surgery, was brought in by ambulance for complaint of dizziness and systolic blood pressure of 70s to 80s. He reports feeling dizzy since last 2 days and having stomach upset with watery diarrhea but no nausea vomiting or fever. He also reported to have headache for 1 week. Denies having any outside food. Denies any complaint of chest pain shortness of breath fever cold or cough. He admits taking his blood pressure medication regularly but has not been eating or drinking well for last 2 to 3 days. 1. Hypotension in the setting of watery diarrhea likely secondary to severe dehydration. Continue with IV fluids normal saline at 100 mm/h Will hold off on blood pressure medications for now Continue to monitor blood pressure Diarrhea likely secondary to viral gastroenteritis. Will hold off on antibiotics for now 2. TEE likely secondary to dehydration Continue with IV fluids. 3. Ischemic heart disease s/p PCI Continue aspirin 81 mg p.o. daily Plavix 75 mg daily Crestor 40 mg daily Hold p.o. metoprolol for now Elevated troponins with normal EKG and absent chest pain likely secondary to dehydration and hypotension, will follow-up second set of troponins 4. GERD Continue p.o. omeprazole 40 mg daily 5. COPD Will continue with ProAir 2 puffs every 6 hours as needed Mometasone 2 puffs twice a day 6. Lumbar stenosis status postlaminectomy Continue with p.o. gabapentin 600 mg 3 times daily Naproxen to 20 mg p.o. twice daily 7. Already on omeprazole will continue same for GI prophylaxis 8. DVT prophylaxis with subcutaneous Lovenox 30 mg daily 9. Cardiac diet 10. CODE STATUS discussed with patient agrees for CPR but wants DNI Attestations Medical Necessity Statement*: Patient admitted for observation for severe hypotension and acute renal failure secondary to dehydration with treatment of IV fluids Time Spent in Patient Care: 30 minutes Coding Level of Care Code Acute Code for [facility] Fwd Diagnoses TEE (acute kidney injury) N17.9 Chronic hepatitis C B18.2 Status post lumbar laminectomy Z98.890 Lumbar stenosis with neurogenic claudication M48.062 AAA (abdominal aortic aneurysm) I71.4 Tobacco abuse Z72.0 HTN (hypertension) I10 Centrilobular emphysema J43.2 COPD type: emphysema Emphysema type: centrilobular Peripheral arterial disease I73.9 Lumbar disc disease with radiculopathy M51.16 Time Spent (min) 30
[2023-12-17] MEDS: sodium chloride 0.9% 1,000 ML 150 ML IV ×2 (16:27→21:56)
[2023-12-17] MEDS: enoxaparin 30 mg/0.3 mL Syringe SUBCUT (18:10)
[2023-12-17] MEDS: MOMETASONE 2 EACH INHALATION (18:10)
[2023-12-17 19:04] LABS: Troponin 5 6HR 18.93 ng/L (0-15)
[2023-12-17 19:07] LABS: Troponin 5 6HR Delta -4.07 ng/L (0-12)
[2023-12-17 19:23] LABS: Bilirubin Urine 1+ (Negative); Blood Urine Neg (Negative); Glucose Urine UA Norm (Normal); Ketones Urine 1+ (Negative); Leukocyte Esterase Urine Negative (Negative); Nitrate Urine Negative (Negative); Protein Urine 1+ (Negative); Specific Gravity, Urine 1.015 (1.005-1.030); Urine Appearance Clear (CLEAR); Urine Color Yellow (Yellow); Urobilinogen Urine 1 mg/dL (Negative); pH Urine 5 (5-7)
[2023-12-17 19:24] LABS: Add Urine Culture? No; Add Urine Microscopic? YES; Bacteria Urine TRACE /hpf; Calcium Oxalate Crystals Urine 0-4 /hpf; RBC Urine 0-4 /hpf (0-2); WBC Urine 0-4 /hpf (0-5)
[2023-12-17] MEDS: atorvastatin 40 mg Tablet 80 MG PO (21:55)
[2023-12-17] MEDS: gabapentin 300 mg Capsule 600 MG PO (21:55)
[2023-12-18] VITALS (9 sets, daily range): BP systolic 117–164; BP diastolic 76–104; PULSE 54–69; RESP 16–20; TEMP 36.4–36.8; O2SAT 93–98
[2023-12-18] MEDS: sodium chloride 0.9% 1,000 ML 150 ML IV ×4 (04:24→23:06)
[2023-12-18] MEDS: cholecalciferol (vitamin D3) 1,000 unit Tablet 1000 UNIT PO (05:13)
[2023-12-18] MEDS: clopidogrel 75 mg Tablet PO (05:13)
[2023-12-18] MEDS: pantoprazole DR 40 mg Tablet PO (05:13)
[2023-12-18 05:24] LABS: Basophils # 0.1 10^3/uL (0.0-0.1); Basophils % 1.2 %; Eosinophils # 0.3 10^3/uL (0.0-0.8); Hematocrit 39.9 % (37-53); Lymphocytes # 2.3 10^3/uL (0.8-4.8); Lymphocytes % 34.4 %; Mean Corpuscular HGB Conc 33.1 g/dL (30-55); Mean Corpuscular Hemoglobin 30.2 pg (27-33); Mean Corpuscular Volume 91.3 fl (82-101); Mean Platelet Volume 10.8 fL (7.4-10.4); Monocytes # 0.9 10^3/uL (0.2-0.9); Monocytes % 13.1 %; Neutrophils # 3.12 10^3/uL (1.8-7.7); Neutrophils % 46.6 %; Nucleated Red Blood Cells % 0 %; Platelet Count 128 10^3/cmm (157-399); Red Blood Count 4.37 10^6/uL (3.85-5.65); Red Cell Distribution Width 15.5 % (12.1-15.1); White Blood Count 6.71 10^3/uL (3.29-11.43)
[2023-12-18 06:00] LABS: Alanine Aminotransferase 6 U/L (0-41); Albumin Level 2.6 g/dL (3.5-5.2); Alkaline Phosphatase 62 U/L (40-130); Anion Gap 12.9 (5-19); Aspartate Amino Transferase 9 U/L (0-40); Blood Urea Nitrogen 23 mg/dL (8-23); Calcium 8.2 mg/dL (8.5-10.5); Carbon Dioxide 21 mmol/L (22-29); Chloride 112 mmol/L (98-107); Creatinine Clr Calc Pharmacy 39.9041; Globulin 2.8 g/dL (1.3-4.6); Glucose 77 mg/dL (65-115); Magnesium 1.9 mg/dL (1.7-2.3); Osmolality Calculated 296 mOsm/kg (285-295); Potassium 3.9 mmol/L (3.5-5.1); Sodium 142 mmol/L (136-145); Total Bilirubin 0.3 mg/dL (0.15-1.2); Total Protein 5.4 g/dL (6.6-8.7)
[2023-12-18] MEDS: OLODATEROL INHALATION (08:50)
[2023-12-18] MEDS: gabapentin 300 mg Capsule 600 MG PO ×3 (08:50→20:18)
[2023-12-18] MEDS: MOMETASONE 2 EACH INHALATION ×2 (08:50→16:28)
[2023-12-18] MEDS: ACTUATION MIST INHALATION (08:50)
--- NOTE | 2023-12-18 08:53 | PC.CHAP ---
Pastoral Care Encounter/Spiritual Assessment Type of Contact [] Declined brand mgr visit [] Patient/Family/Request visit [] Outpatient visit [] Follow-up visit [] Physician referral [] Code/Alert [x] Routine visit [] Staff referral [] Actively dying [] Patient sleeping [] Family support [] [] Out of room [] Palliative care [] [] Receiving care in room [] Pre-surgical visit [] Trauma [] Long length of stay [] ICU visit [] Other: Relational/Emotional Strength [x] Patient feels connected with others/family/visitors/staff [] Distress [] Loneliness/isolation [] Abandonment Spirituality of Patient [x] Person of [place] [] Attends Restorationist of their [place] [x] Believes in Prayer [] Reads Bible or Orthodox materials [] There are Spiritual issues to be addressed Director Surgical Interventions [x] Prayer [] Active listening [] Non-anxious presence [x] Spiritual/emotional support [] Crisis/trauma care [] Spiritual counseling [] Bereavement support [] Provided bereavement packet [] Provided Bible/devotional materials [] Provided toy/stuffed animal, coloring book to patient or family member [] Provided Communion [] Anointing/[place] [] Salvation [x] Completed spiritual assessment [] Other: Impact on Illness or Injury [] Angry [] Fearful [] Anxious [] Often cries [] Exhaustion [] Unable to work [] Unable to attend confucianism [] Unable to walk/stand [] Unable to read [] Unable to drive [] Unable to eat/drink [] Unable to sleep [] Unable to be with family [] Patient intubated [] Other: Summary Time spent with patient 5 min
--- NOTE | 2023-12-18 13:18 | P.PN_ITS ---
Subjective 2 Subjective: no acute overnight events noted. feeling better today Medications: Reviewed: Yes Vitals/I&O/Wt Last Vital Signs Temp 97.9 F 12/18/23 11:16 Pulse 54 L 12/18/23 11:16 Resp 16 12/18/23 11:16 BP 135/85 12/18/23 11:16 Pulse Ox 98 12/18/23 11:16 O2 Del Method Room Air 12/18/23 11:16 12/17/23 12/18/23 12/18/23 22:59 06:59 14:59 Intake Total 1851.95 / 1851.95 970 / 2821.95 1307.5 / 1307.5 Output Total 300 / 300 500 / 500 Balance 1851.95 / 1851.95 670 / 2521.95 807.5 / 807.5 Weight last 48 hrs Weight 71.838 kg Weight 70.307 kg Weight 70.307 kg Physical Exam 2 Narrative: He is alert awake oriented x 3 anxious Chest is clear to auscultation bilaterally Cardiovascular normal heart sounds no murmurs Abdomen soft nontender nondistended normal bowel sounds Extremities no edema seen bilaterally Data 12/18/23 04:36 12/18/23 04:36 Micro: Microbiology 12/17/23 13:43 Blood Culture - Preliminary Blood SPECIMEN COLLECTED 12/17/23 13:38 Blood Culture - Preliminary Blood SPECIMEN COLLECTED A&P Assessment and plan (1) TEE (acute kidney injury): (2) Chronic hepatitis C: (3) Status post lumbar laminectomy: (4) Lumbar stenosis with neurogenic claudication: (5) AAA (abdominal aortic aneurysm): (6) Tobacco abuse: (7) HTN (hypertension): (8) COPD (chronic obstructive pulmonary disease): Qualifiers: COPD type: emphysema Emphysema type: centrilobular Qualified Code(s): J43.2 - Centrilobular emphysema (9) Peripheral arterial disease: (10) Lumbar disc disease with radiculopathy: Plan 1. Hypotension resolved 2. TEE likely secondary to dehydration improving Continue with IV fluids. follow up BMP in am. Already on omeprazole will continue same for GI prophylaxis DVT prophylaxis with subcutaneous Lovenox 30 mg daily Cardiac diet CODE STATUS discussed with patient agrees for CPR but wants DNI plan to discharge home in am. Attestations 2 Medical Necessity Statement*: He is doing better plan to discharge home in a.m. Time Spent in Patient Care: 15 minutes Coding Level of Care Code Acute Code for Chg Fwd Diagnoses TEE (acute kidney injury) N17.9 Chronic hepatitis C B18.2 Status post lumbar laminectomy Z98.890 Lumbar stenosis with neurogenic claudication M48.062 AAA (abdominal aortic aneurysm) I71.4 Tobacco abuse Z72.0 HTN (hypertension) I10 Centrilobular emphysema J43.2 COPD type: emphysema Emphysema type: centrilobular Peripheral arterial disease I73.9 Lumbar disc disease with radiculopathy M51.16 Time Spent (min) 15
[2023-12-18] MEDS: metoprolol succinate ER (24 HR) 25 mg Tablet PO (16:28)
[2023-12-18] MEDS: enoxaparin 30 mg/0.3 mL Syringe SUBCUT (16:28)
--- NOTE | 2023-12-18 17:48 | PC.NURSE ---
This nurse assumed care of pt at approximately 1700.
[2023-12-18] MEDS: atorvastatin 40 mg Tablet 80 MG PO (20:19)
[2023-12-19] VITALS: BP 166/96; PULSE 59; RESP 20; TEMP 36.8; O2SAT 99
[2023-12-19 04:22] VITALS: PULSE 49
[2023-12-19 04:51] VITALS: BP 180/96; PULSE 58; RESP 20; TEMP 36.6; O2SAT 96
[2023-12-19] MEDS: pantoprazole DR 40 mg Tablet PO (05:45)
[2023-12-19] MEDS: cholecalciferol (vitamin D3) 1,000 unit Tablet 1000 UNIT PO (05:45)
[2023-12-19] MEDS: sodium chloride 0.9% 1,000 ML 150 ML IV (05:45)
[2023-12-19] MEDS: clopidogrel 75 mg Tablet PO (05:45)
[2023-12-19] MEDS: metoprolol succinate ER (24 HR) 25 mg Tablet PO (05:50)
[2023-12-19 05:53] LABS: Anion Gap 10.1 (5-19); Blood Urea Nitrogen 16 mg/dL (8-23); Calcium 8.3 mg/dL (8.5-10.5); Carbon Dioxide 26 mmol/L (22-29); Chloride 111 mmol/L (98-107); Creatinine Clr Calc Pharmacy 52.3349; Glomerular Filtration Rate 54.6 mL/min (90-130); Glucose 80 mg/dL (65-115); Osmolality Calculated 296 mOsm/kg (285-295); Potassium 4.1 mmol/L (3.5-5.1); Sodium 143 mmol/L (136-145)
[2023-12-19 08:02] VITALS: PULSE 56; RESP 16; O2SAT 94
[2023-12-19] MEDS: amlodipine 5 mg Tablet 2.5 MG PO (08:33)
[2023-12-19] MEDS: gabapentin 300 mg Capsule 600 MG PO (08:34)
[2023-12-19] MEDS: OLODATEROL INHALATION (08:34)
[2023-12-19] MEDS: MOMETASONE 2 EACH INHALATION (08:34)
[2023-12-19] MEDS: ACTUATION MIST INHALATION (08:34)
--- NOTE | 2023-12-19 11:13 | P.DS_ITS ---
Discharge Providers Date of Admission: 12/17/23 14:59 Date of Discharge: December 19, 2023 Attending Provider at Admission: Yin Quiros MD Attending Provider at Discharge: Yin Quiros MD Primary Care Provider: Radha Mazariegos MD Diagnoses at Discharge Discharge Diagnosis (1) TEE (acute kidney injury): Status: Acute (2) Chronic hepatitis C: Status: Acute (3) Status post lumbar laminectomy: Status: Acute (4) Lumbar stenosis with neurogenic claudication: Status: Acute (5) AAA (abdominal aortic aneurysm): Status: Acute (6) Tobacco abuse: Status: Acute (7) HTN (hypertension): Status: Acute (8) COPD (chronic obstructive pulmonary disease): Status: Acute Qualifiers: COPD type: emphysema Emphysema type: centrilobular Qualified Code(s): J43.2 - Centrilobular emphysema (9) Peripheral arterial disease: Status: Acute (10) Lumbar disc disease with radiculopathy: Status: Acute Reason for Visit Reason for Visit: hypotension Brief History: Eber Fernandez is a 68 year old male With history of ischemic heart disease s/p PCI x 2, abdominal aortic aneurysm, lumbar stenosis with neurogenic claudication, hypertension ,COPD ,active smoker with 1 pack/day for more than 30 years, peripheral arterial disease, chronic hepatitis C infection, s/p insertion of iliac artery stent ,s/p lumbar laminectomy , esophageal ulcer s/p surgery, was brought in by ambulance for complaint of dizziness and systolic blood pressure of 70s to 80s. He reports feeling dizzy since last 2 days and having stomach upset with watery diarrhea but no nausea vomiting or fever. He also reported to have headache for 1 week. Denies having any outside food. Denies any complaint of chest pain shortness of breath fever cold or cough. He admits taking his blood pressure medication regularly but has not been eating or drinking well for last 2 to 3 days. On arrival to ER he was found to have systolic blood pressure in 80s, with elevated creatinine of 2.6, his baseline creatinine is 1. Also found to have hyponatremia with sodium of 134. EKG was normal sinus rhythm. He has mildly elevated troponins but denied any chest pain or shortness of breath. Hospital Course Hospital Course He was hemodynamically stable during the hospital stay, renal function improved with creatinine of 1.3 from 2.6 on admission on continuous IV fluids normal saline. Because of hypotension on admission, we had held his home medication metoprolol. But now blood pressure trending, will restart at lower dose at 25 mg daily and add amlodipine 2.5 mg daily. Physical Exam Narrative: He is alert awake oriented x 3 anxious Chest is clear to auscultation bilaterally Cardiovascular normal heart sounds no murmurs Abdomen soft nontender nondistended normal bowel sounds Extremities no edema seen bilaterally Discharge Data Studies Completed and Pending Pending at discharge Category Date Time Status Blood Culture Stat Lab 12/17/23 13:43 Results Laboratory Results WBC 6.71 10^3/uL (3.29-11.43) 12/18/23 04:36 RBC 4.37 10^6/uL (3.85-5.65) 12/18/23 04:36 Hgb 13.20 g/dL (11.27-16.99) 12/18/23 04:36 Hct 39.9 % (37-53) 12/18/23 04:36 MCV 91.3 fl (82-101) 12/18/23 04:36 MCH 30.2 pg (27-33) 12/18/23 04:36 MCHC 33.1 g/dL (30-55) 12/18/23 04:36 RDW 15.5 % (12.1-15.1) H 12/18/23 04:36 Plt Count 128 10^3/cmm (157-399) L 12/18/23 04:36 MPV 10.8 fL (7.4-10.4) H 12/18/23 04:36 Neut % (Auto) 46.6 % 12/18/23 04:36 Lymph % (Auto) 34.4 % 12/18/23 04:36 [place] % (Auto) 13.1 % 12/18/23 04:36 Eos % (Auto) 4.0 % 12/18/23 04:36 Baso % (Auto) 1.2 % 12/18/23 04:36 Neut # (Auto) 3.12 10^3/uL (1.8-7.7) 12/18/23 04:36 Lymph # (Auto) 2.3 10^3/uL (0.8-4.8) 12/18/23 04:36 [place] # (Auto) 0.9 10^3/uL (0.2-0.9) 12/18/23 04:36 Eos # (Auto) 0.3 10^3/uL (0.0-0.8) 12/18/23 04:36 Baso # (Auto) 0.1 10^3/uL (0.0-0.1) 12/18/23 04:36 Nucleated RBC % (auto) 0 % 12/18/23 04:36 Nucleated RBCs # 0.0 /100WBC 12/18/23 04:36 Sodium 143 mmol/L (136-145) 12/19/23 05:14 Potassium 4.1 mmol/L (3.5-5.1) 12/19/23 05:14 Chloride 111 mmol/L (98-107) H 12/19/23 05:14 Carbon Dioxide 26 mmol/L (22-29) 12/19/23 05:14 Anion Gap 10.1 (5-19) 12/19/23 05:14 BUN 16 mg/dL (8-23) 12/19/23 05:14 Creatinine 1.3 mg/dL (0.7-1.2) H 12/19/23 05:14 GFR Calculation 54.6 mL/min (90-130) L 12/19/23 05:14 Glucose 80 mg/dL (65-115) 12/19/23 05:14 Calculated Osmolality 296 mOsm/kg (285-295) H 12/19/23 05:14 Lactic Acid 1.5 mmol/L (0.5-2.2) 12/17/23 13:38 Calcium 8.3 mg/dL (8.5-10.5) L 12/19/23 05:14 Magnesium 1.9 mg/dL (1.7-2.3) 12/18/23 04:36 Total Bilirubin 0.3 mg/dL (0.15-1.2) 12/18/23 04:36 AST 9 U/L (0-40) 12/18/23 04:36 ALT 6 U/L (0-41) 12/18/23 04:36 Alkaline Phosphatase 62 U/L (40-130) 12/18/23 04:36 Troponin T Baseline 23 ng/L (0-15) H 12/17/23 12:34 Troponin T 120 Minute 19.75 ng/L (0-15) H 12/17/23 14:52 Delta Troponin T -3.25 ABS# (0-10) L 12/17/23 14:52 Troponin T Hi Sens 6Hr 18.93 ng/L (0-15) H 12/17/23 18:29 Troponin T Hi Sens 6Hr Delta -4.07 ng/L (0-12) L 12/17/23 18:29 NT-Pro-B Natriuret Pep 406 pg/mL (0-125) H 12/17/23 12:34 Total Protein 5.4 g/dL (6.6-8.7) L 12/18/23 04:36 Albumin 2.6 g/dL (3.5-5.2) L 12/18/23 04:36 Globulin 2.8 g/dL (1.3-4.6) 12/18/23 04:36 Urine Color Yellow (Yellow) 12/17/23 18:10 Urine Appearance Clear (CLEAR) 12/17/23 18:10 Urine pH 5 (5-7) 12/17/23 18:10 Ur Specific [place] 1.015 (1.005-1.030) 12/17/23 18:10 Urine Protein 1+ (Negative) H 12/17/23 18:10 Urine Glucose (UA) Norm (Normal) 12/17/23 18:10 Urine Ketones 1+ (Negative) H 12/17/23 18:10 Urine Blood Neg (Negative) 12/17/23 18:10 Urine Nitrate Negative (Negative) 12/17/23 18:10 Urine Bilirubin 1+ (Negative) H 12/17/23 18:10 Urine Urobilinogen 1 mg/dL (Negative) H 12/17/23 18:10 Ur Leukocyte Esterase Negative (Negative) 12/17/23 18:10 Urine RBC 0-4 /hpf (0-2) H 12/17/23 18:10 Urine WBC 0-4 /hpf (0-5) H 12/17/23 18:10 Ur Squamous Epith Cells None /hpf (0-5) 12/17/23 18:10 Calcium Oxalate Crystal 0-4 /hpf H 12/17/23 18:10 Amorphous Sediment Not Reportable 12/17/23 18:10 Urine Bacteria Trace /hpf (NONE) 12/17/23 18:10 Vitals Last Vital Signs Temp 97.8 F 12/19/23 04:51 Pulse 56 L 12/19/23 08:02 Resp 16 12/19/23 08:02 BP 180/96 12/19/23 04:51 Pulse Ox 94 12/19/23 08:02 O2 Del Method Room Air 12/19/23 08:02 Discharge Plan Discharge Patient Disposition: Home Condition: Stable Prescriptions: New amlodipine 5 mg Tablet 2.5 mg PO DAILY 30 Days Qty: 30 0RF metoprolol succinate 25 mg Tablet Extended Release 24 Hr 25 mg PO QAM Qty: 30 0RF Continued gabapentin 300 mg capsule 600 mg PO TID trazodone 100 mg tablet 50 mg PO BEDTIME PRN (Reason: Sleep) hydrocodone-acetaminophen 5-325 mg tablet 1 - 2 tab PO .Q4-6H PRN (Reason: pain) 7 Days Qty: 40 0RF clopidogrel [Plavix] 75 mg Tablet 75 mg PO QAM Hold Instructions: Resume on 10/15/20. naproxen sodium [Aleve] 220 mg tablet 220 mg PO BID PRN (Reason: Pain) omeprazole 40 mg Capsule,Delayed Release(Dr/Ec) 40 mg PO QAM Hold Instructions: Resume on 10/28/20. albuterol sulfate [ProAir HFA] 90 mcg/actuation Hfa Aerosol Inhaler 2 puff INHALATION Q6H PRN (Reason: Shortness Of Breath) aspirin 81 mg Tablet,Delayed Release (Dr/Ec) 81 mg PO DAILY PRN (Reason: Chest Pain) Vitamin D3 25 mcg (1,000 unit) Capsule 25 mcg PO QAM Crestor 40 mg Tablet 40 mg PO BEDTIME olodaterol 2.5 mcg/actuation Mist 2 inh INHALATION DAILY mometasone 200 mcg/actuation Hfa Aerosol Inhaler 2 puff INHALATION BID Discontinued metoprolol succinate 50 mg Tablet Extended Release 24 Hr 50 mg PO QAM Discharge Orders: Discharge Order (Routine); Ordered 12/19/23 Ordered By: Yin Quiros Referrals: Radha Mazariegos MD [Primary Care Provider] - 12/21/23 11:30 am Discharge Diet: Cardiac Discharge Activity: Resume usual activity Patient Instructions: Opioid Safety, Pain Management Discharge Attestations Time Spent in Discharge Care*: less than 30 min Quality Metrics Clinical Quality Measures [ No reported AMI, CVA or VTE this stay] Coding Level of Care Code Acute Code for Chg Fwd Diagnoses TEE (acute kidney injury) N17.9 Chronic hepatitis C B18.2 Status post lumbar laminectomy Z98.890 Lumbar stenosis with neurogenic claudication M48.062 AAA (abdominal aortic aneurysm) I71.4 Tobacco abuse Z72.0 HTN (hypertension) I10 Centrilobular emphysema J43.2 COPD type: emphysema Emphysema type: centrilobular Peripheral arterial disease I73.9 Lumbar disc disease with radiculopathy M51.16 Time Spent (min) 20
[2023-12-19 12:46] VITALS: PULSE 56; RESP 16; O2SAT 94
== END 2023-12-19 12:46 | disposition home or self-care (01) ==
LOC: ER 14:58 → MEDSURG 16:54
PROVIDERS: Admitting Provider Internal Medicine; Emergency Provider Family Medicine; PCP Family Medicine; Visit Provider Internal Medicine
DX: N17.9 Acute kidney failure, unspecified (principal); B18.2 Chronic viral hepatitis C; Z98.890 Other specified postprocedural states; M48.062 Spinal stenosis, lumbar region with neurogenic claudication; I71.40 Abdominal aortic aneurysm, without rupture, unspecified; Z72.0 Tobacco use; I10 Essential (primary) hypertension; J43.2 Centrilobular emphysema; I73.9 Peripheral vascular disease, unspecified; M51.16 Intervertebral disc disorders with radiculopathy, lumbar region; Z66 Do not resuscitate; F17.210 Nicotine dependence, cigarettes, uncomplicated
CPT/HCPCS: 36415; 80048; 80053; 81001; 83605; 83735; 83880; 84484; 85025; 87040; 93005; 94664; 96360; 96361; 96372; 99285; G0378; J1650; J7030